=== PATIENT | male | born 1935 | race Caucasian/White ===

== ENCOUNTER 2018-05-23 13:29 | Inpatient (IN) | payer OTHER, BC ==
--- NOTE | 2018-05-23 13:54 | PDOC ---
Rapid Medical Evaluation Time Seen by Provider: 05/23/18 13:49 Medical Evaluation: Allergies Allergy/AdvReac Type Severity Reaction Status Date / Time No Known Allergies Allergy Verified 06/23/16 19:33 05/23/18 13:49 I have performed a brief in-person evaluation of this patient. The patient presents with a chief complaint of: increased confusion over months with Brain CA Pertinent physical exam findings: CN2-12 grossly intact. PERRLA, EOMI. Gait steady. I have ordered the following: labs, urine, head CT and CXR performed today The patient will proceed to the ED for further evaluation. Discharge Disposition - Diagnosis Confusion - Referrals - Patient Instructions - Post Discharge Activity
[2018-05-23 14:45] LABS: EOS % 3.6 % (0-4.5); HEMATOCRIT 37.2 % (35.4-49); HEMOGLOBIN 12.7 GM/dL (11.7-16.9); LYMPH % 28.6 % (8-40); MCHC 34.2 g/dl (32.0-35.9); MEAN CELL VOLUME 90.5 fl (80-96); MEAN PLT VOLUME 7.3 fl (7.5-11.1); MONO % 7.2 % (3.8-10.2); NEUT % 59.6 % (42.8-82.8); PLATELET COUNT 177 K/MM3 (134-434); RDW 14.6 % (11.9-15.9); WHITE BLOOD COUNT 5.9 K/mm3 (4.0-10.0)
--- NOTE | 2018-05-23 14:47 | PDOC ---
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 Patient retired from work 2 months ago and since has had difficulty driving and per daughter episodes where he does not know where he is and appears confused. The patient denies any changes in vision, headaches, ringing in the ears, nausea, vomiting, vertigo or fevers. He denies any chest pain, shortness of breath, abdominal pain, diarrhea , constipation and denies any other complaints at bedside. PMHX: as in HPI Meds: see below Allergies: NKDA Tob: none Etoh: none Rec drugs: none PCP: Marcelle <Tiffanie Sims - Last Filed: 05/23/18 15:20> <Morelia Hutchinson - Last Filed: 05/23/18 16:12> - General History Source: Patient, Family Exam Limitations: No Limitations <Tiffany Horn - Last Filed: 05/29/18 05:53> - General Chief Complaint: Altered Mental Status Stated Complaint: SENT BY PCP Time Seen by Provider: 05/23/18 13:49 Past History - Past Medical History HTN: Yes - Suicide/Smoking/Psychosocial Hx Smoking History: Never smoked Have you smoked in the past 12 months: No Information on smoking cessation initiated: No Hx Alcohol Use: No Drug/Substance Use Hx: No Substance Use Type: None <Tiffanie Sims - Last Filed: 05/23/18 15:20> <Morelia Hutchinson - Last Filed: 05/23/18 16:12> <Tiffany Horn - Last Filed: 05/29/18 05:53> - Past Medical History Allergies/Adverse Reactions: Allergies Allergy/AdvReac Type Severity Reaction Status Date / Time No Known Allergies Allergy Verified 06/23/16 19:33 Home Medications: Ambulatory Orders Simvastatin 20 mg PO HS 06/23/16 Tamsulosin HCl [Flomax] 0.4 mg PO DAILY 05/23/18 Olmesartan Medoxomil 40 mg PO DAILY #30 tablet 05/25/18 levETIRAcetam [Keppra -] 500 mg PO BID #60 tablet 05/25/18 Bisacodyl [Laxative] 5 mg PO ASDIR 05/26/18 Review of Systems - Review of Systems Able to Perform ROS?: Yes Is the patient limited [place] proficient: No Constitutional: No: Chills, Diaphoresis, Fever HEENTM: No: Eye Pain, Blurred Vision, Tearing, Double Vision, Tinnitus Respiratory: No: Cough, Orthopnea, Shortness of Breath Cardiac (ROS): No: Chest Pain, Palpitations, Syncope, Chest Tightness ABD/GI: No: Constipated, Diarrhea, Nausea, Vomiting : No: Burning, Dysuria, Hematuria, Incontinence Neurological: No: Headache, Numbness, Paresthesia, Tingling <Tiffanie Sims - Last Filed: 05/23/18 15:20> *Physical Exam - Vital Signs Last Vital Signs Temp Pulse Resp BP Pulse Ox 98.2 F 84 16 165/87 98 05/23/18 13:50 05/23/18 13:50 05/23/18 13:50 05/23/18 13:50 05/23/18 13:50 - Physical Exam Comments: 05/23/18 14:48 GENERAL: Awake, alert, and fully oriented, in no acute distress HEAD: No signs of trauma, normocephalic, + lesions on posterior parietal area, with dark crusting, largest measuring 1cm in diameter EYES: PERRLA, EOMI, sclera anicteric, conjunctiva clear ENT: oropharynx clear without exudates. Moist mucosa NECK: Normal ROM, supple, no lymphadenopathy LUNGS: No distress, speaks full sentences, clear to auscultation bilaterally HEART: Regular rate and rhythm, normal S1 and S2, no murmurs, rubs or gallops, peripheral pulses normal and equal bilaterally. ABDOMEN: Soft, nontender, normoactive bowel sounds. No guarding, no rebound. No masses EXTREMITIES : Normal inspection, Normal range of motion, no edema. No clubbing or cyanosis. NEUROLOGICAL: Cranial nerves II through XII grossly intact. Normal speech, no focal sensorimotor deficits SKIN: Warm, Dry, normal turgor, no rashes or lesions noted <Tiffanie Sims - Last Filed: 05/23/18 15:20> - Vital Signs Last Vital Signs Temp Pulse Resp BP Pulse Ox 98.2 F 84 16 165/87 98 05/23/18 13:50 05/23/18 13:50 05/23/18 13:50 05/23/18 13:50 05/23/18 13:50 <Morelia Hutchinson - Last Filed: 05/23/18 16:12> - Vital Signs Last Vital Signs Temp Pulse Resp BP Pulse Ox 98.2 F 84 16 165/87 98 05/23/18 13:50 05/23/18 13:50 05/23/18 13:50 05/23/18 13:50 05/23/18 13:50 <Tiffany Horn Rick - Last Filed: 05/29/18 05:53> ED Treatment Course - LABORATORY CBC & Chemistry Diagram: 05/23/18 14:33 05/23/18 14:33 <Tiffanie Sims - Last Filed: 05/23/18 15:20> - LABORATORY CBC & Chemistry Diagram: 05/23/18 14:33 05/23/18 14:33 - ADDITIONAL ORDERS Additional order review: Laboratory Results 05/23/18 05/23/18 15:21 14:33 Sodium 141 Potassium 4.5 Chloride 107 Carbon Dioxide 25 Anion Gap 8 BUN 16 Creatinine 1.1 Creat Clearance w eGFR > 60 Random Glucose 84 Calcium 8.7 Total Bilirubin 0.5 AST 22 ALT 20 Alkaline Phosphatase 75 Creatine Kinase 95 Troponin I 0.02 Total Protein 7.5 Albumin 3.9 Urine Color Ltyellow Urine Appearance Clear Urine pH 5.0 Ur Specific [place] 1.012 Urine Protein Negative Urine Glucose (UA) Negative Urine Ketones Negative Urine Blood Negative Urine Nitrite Negative Urine Bilirubin Negative Urine Urobilinogen Negative Ur Leukocyte Esterase Negative 05/23/18 14:33 RBC 4.10 MCV 90.5 MCHC 34.2 RDW 14.6 MPV 7.3 L Neutrophils % 59.6 Lymphocytes % 28.6 D Monocytes % 7.2 Eosinophils % 3.6 Basophils % 1.0 - Medications Given in the ED: ED Medications Discontinued Medications Generic Name Dose Route Start Last Admin Trade Name Freq PRN Reason Stop Dose Admin Alprazolam 0.25 mg 05/23/18 15:35 05/23/18 15:47 Xanax - PO 05/23/18 15:36 0.25 mg ONCE ONE Administration Dexamethasone Sodium Phosphate 10 mg 05/23/18 15:42 05/23/18 16:03 Decadron Injection - IVPUSH 05/23/18 15:43 10 mg ONCE ONE Administration Levetiracetam 500 mg 05/23/18 15:11 05/23/18 15:38 Keppra Injection - IVPB 05/23/18 15:12 500 mg ONCE ONE Administration - Additional Consults Time Called: 16:12 (Called service, left message. Overhead paged as well. ) <Morelia Hutchinson - Last Filed: 05/23/18 16:12> - LABORATORY CBC & Chemistry Diagram: 05/25/18 08:10 05/25/18 05:30 - ADDITIONAL ORDERS Additional order review: Laboratory Results 05/23/18 05/23/18 15:21 14:33 Sodium 141 Potassium 4.5 Chloride 107 Carbon Dioxide 25 Anion Gap 8 BUN 16 Creatinine 1.1 Creat Clearance w eGFR > 60 Random Glucose 84 Calcium 8.7 Total Bilirubin 0.5 AST 22 ALT 20 Alkaline Phosphatase 75 Creatine Kinase 95 Troponin I 0.02 Total Protein 7.5 Albumin 3.9 Urine Color Ltyellow Urine Appearance Clear Urine pH 5.0 Ur Specific [place] 1.012 Urine Protein Negative Urine Glucose (UA) Negative Urine Ketones Negative Urine Blood Negative Urine Nitrite Negative Urine Bilirubin Negative Urine Urobilinogen Negative Ur Leukocyte Esterase Negative 05/23/18 14:33 RBC 4.10 MCV 90.5 MCHC 34.2 RDW 14.6 MPV 7.3 L Neutrophils % 59.6 Lymphocytes % 28.6 D Monocytes % 7.2 Eosinophils % 3.6 Basophils % 1.0 - RADIOLOGY Radiology Studies Ordered: Category Date Time Status BRAIN MRI W&W/O CONTRAST [MRI] Stat MRI 05/23/18 15:59 Ordered - Medications Given in the ED: ED Medications Discontinued Medications Generic Name Dose Route Start Last Admin Trade Name Freq PRN Reason Stop Dose Admin Alprazolam 0.25 mg 05/23/18 15:35 05/23/18 15:47 Xanax - PO 05/23/18 15:36 0.25 mg ONCE ONE Administration Dexamethasone Sodium Phosphate 10 mg 05/23/18 15:42 05/23/18 16:03 Decadron Injection - IVPUSH 05/23/18 15:43 10 mg ONCE ONE Administration Levetiracetam 500 mg 05/23/18 15:11 05/23/18 15:38 Keppra Injection - IVPB 05/23/18 15:12 500 mg ONCE ONE Administration <Tiffany Horn - Last Filed: 05/29/18 05:53> Medical Decision Making - Medical Decision Making 05/23/18 14:46 83 year old with past medical history of HLD and basal cell carcinoma who presents with 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 Patient retired from work 2 months ago and since has had difficulty driving and per daughter episodes where he does not know where he is and appears confused. The patient denies any changes in vision, headaches, ringing in the ears, nausea, vomiting, vertigo or fevers. He denies any chest pain, shortness of breath, abdominal pain, diarrhea , constipation and denies any other complaints at bedside. DDX including but not limited to: meta W/U: - cbc, cmp, PT, PT/INR - ekg, cxr TX: - Scores: ED Course: Patient stable and pleasant at bedside. Per daughter patient has lesions in the chest and the brain as reported by PCP earlier today. The patient is in no pain. Studies done prior to arrival to ED Head CT: R temporal lobe mass w/ R cerebral vasogenic edema CXR: No acute pathology found. Patient with stable vitals and without neurological findings less concern for increased ICP. Patient without findings of irregular decreased respirations or bradycardia or systolic HTN. 05/23/18 15:13 Keppra 500mg ordered for seizure ppx. Dexamethasone 10mg given Chest, Abd, Pelvis CT 05/23/18 15:44 <Tiffanie Sims - Last Filed: 05/23/18 15:20> *DC/Admit/Observation/Transfer <Tiffanie Sims - Last Filed: 05/23/18 15:20> <Morelia Hutchinson - Last Filed: 05/23/18 16:12> - Discharge Dispostion Decision to Admit order: Yes Decision to Admit order Date/Time: Decision to Admit Order Category Date Time Status Decision to Admit to Hospital Routine Admission 05/23/18 16:04 Ordered <Tiffany Horn - Last Filed: 05/29/18 05:53> Diagnosis at time of Disposition: Confusion, Intracranial mass, Vasogenic cerebral edema - Discharge Dispostion Condition at time of disposition: Improved
--- NOTE | 2018-05-23 15:04 | PDOC ---
Attending Attestation - Medical Decision Making 05/23/18 15:[address] Ibanez 3:37, waiting for a call back. 05/23/18 15:[address] Ibanez. 05/23/18 15:[address] Vila. 05/23/18 15:[address] Vila. 05/23/18 15:[address] Ochoa 05/23/18 15:[address] Ochoa 05/23/18 15:58 Documentation prepared by Blessing Silverio, acting as auditor medical claims for Tiffany Horn MD. 05/23/18 16:03 ICU paged. 05/23/18 16:03 Case discussed with ICU resident Dr. Covington. <Blessing Silverio - Last Filed: 05/23/18 16:03> - Resident Resident Name: Tiffanie Sims - ED Attending Attestation I have performed the following: I have examined & evaluated the patient, The case was reviewed & discussed with the resident, I agree w/resident's findings & plan - HPI HPI: 05/23/18 15:02 Mr. Gianfranco Hernandez is a 84 year old male with past medical history significant for BCC (scalp), HTN, HLD, and newly dx hemorrhagic brain mass (05/23/2018) presents to the emergency department with AMS. Per PCP, patients been having increased confusion and disorientation for the past 2 months. Earlier today, patient had a CT of the head, which showed the mass. Allergies: NKA Social history: No past or present use of tobacco, alcohol or recreational drug use. Surgical history: Scalp lesion removed. PCP: Jayme Ibanez MD 05/23/18 16:06 - Physicial Exam PE: 05/23/18 16:05 Alert, oriented to person time and place. well appearing. CN II-XII grossly intact. Strength prox and distally 5/5 throughout. Sensation grossly intact to light touch. LI x4. No cerebellar signs, no dysmetria, bilateral finger to nose and heel to baez equal and symmetric. Speech clear. gait stable. no ataxia EOMI, PERRL, neck supple. RRR, CTAB, Abdomen soft, NTND. WWP, no edema. 05/23/18 16:06 05/23/18 16:07 - Medical Decision Making 83 year old with past medical history of HLD and basal cell carcinoma with new intracranial mass. AMS and delirium x 2 months, CT head today with right sided hemorrhagic mass vitals wnl, labs and lytes normal. HD stable, HOB at 30 degrees. no focal neuro deficits here. CT head with right temporal lobe hemorrhagic mass and vasogenic edema, shift and compression onto lateral and ventricles. - given IVF, keppra for sz ppx, Dexamethasone 10mg IV. - CT c/a/p ordered for malignancy workup/mets. spoke with Dr. Vila, will see as neuro cs spoke with Dr. Ochoa per request of PMD Dr. Ibanez - who saw images with PMD earlier today, will operate preemptively for tomorrow. NPO after midnight. agrees with malignancy workup, CT chest abdomen and pelvis ordered. MRI brain ordered as well. -ICU consult and admission to hospitalist per pmd, for close neuro checks and operative planning, c/w medical management and malignancy workup. pt not aware per request of daughter at bedside, impression and plan discussed with her, agree with care. 05/23/18 16:07 05/23/18 17:22 <Tiffany Horn - Last Filed: 05/23/18 17:22>
[2018-05-23] MEDS ORDERED: levETIRAcetam 500 MG/5 ML INJECTION VIAL IVPB ONE ×2 (15:11→15:23)
[2018-05-23] MEDS ORDERED: ALPRAZolam 0.25 MG TABLET PO ONE (15:35)
[2018-05-23 15:40] LABS: ALBUMIN 3.9 g/dl (3.4-5.0); ALK PHOS 75 U/L (45-117); ANION GAP 8 MMOL/L (8-16); BILIRUBIN,TOTAL 0.5 mg/dL (0.2-1); BLOOD UREA NITROGEN 16 mg/dL (7-18); CALCIUM 8.7 mg/dL (8.5-10.1); CHLORIDE 107 mmol/L (98-107); CO2 25 mmol/L (21-32); CREATININE 1.1 mg/dL (0.55-1.3); GLUCOSE,RANDOM 84 mg/dL (74-106); POTASSIUM 4.5 mmol/L (3.5-5.1); SGOT/AST 22 U/L (15-37); SGPT/ALT 20 U/L (13-61); SODIUM 141 mmol/L (136-145); TOT PROT 7.5 g/dl (6.4-8.2)
[2018-05-23] MEDS ORDERED: ALPRAZolam 0.25 MG TABLET ONE (15:41)
[2018-05-23] MEDS ORDERED: DEXAMETHASONE SOD PHOSPHATE 10 MG/1 ML VIAL IVPUSH ONE (15:42)
[2018-05-23 15:48] LABS: URINE APPEARANCE CLEAR; URINE BILIRUBIN NEGATIVE (<2.0 mg/dL); URINE COLOR LTYELLOW; URINE GLUCOSE (UA) NEGATIVE (NEGATIVE); URINE KETONE NEGATIVE (NEGATIVE); URINE LEUK ESTERASE NEGATIVE (NEGATIVE); URINE NITRITE NEGATIVE (NEGATIVE); URINE PROTEIN NEGATIVE (NEGATIVE); URINE UROBILINOGEN NEGATIVE mg/dL (0.2-1.0)
[2018-05-23 15:57] LABS: INR 1.01 (0.83-1.09); PROTHROMBIN TIME (PATIENT) 11.9 SEC (9.7-13.0)
[2018-05-23] MEDS ORDERED: DEXAMETHASONE SOD PHOSPHATE 10 MG/1 ML VIAL ONE (15:57)
--- NOTE | 2018-05-23 16:26 | HP ---
CHIEF COMPLAINT:AMS PCP:Dr. Ibanez HISTORY OF PRESENT ILLNESS: 83 yo M with PMHx of HLD and BCC who was sent by PCP for newly found hemorrhagic brain mass. As per daughter he has had a steady decline in cognition over the past 3 mo. Every since he retired 3 mo ago he has become more confused and anxious. Daughters have noticed that he has become increasingly forgetful and often asking the same question multiple times. His daughters finally called PCP and was told to come in to office. When he arrived at office CT head was done and identified a mass with possible bleed and edema. Patient was subsequently transferred to ED. In ED patient was evaluated by neurosurgery and MRI is pending. Patients denies CP, CISNEROS, SOB, palpitations, nausea, vomiting or recent illness. ER course was notable for: (1)EKG- NSR no st abn. (2)HEAD CT shows ; R temporal lobe mass w/ R cerebral vasogenic edema (3)CXR: No acute pathology found. Recent Travel: denies PAST MEDICAL HISTORY:Basal cell carcinoma, HLD. PAST SURGICAL HISTORY: basal cell excision, eye surgery? Social History: Smoking: remote over 40 yrs ago; 1 cig at night for 3 yrs. 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 Living: lives at home with his daughter. Family History: Father ( of TB) and Mother(dementia) Allergies No Known Allergies Allergy (Verified 06/23/16 19:33) HOME MEDICATIONS: Home Medications Medication Instructions Recorded Olmesartan Medoxomil [Benicar -] 20 mg PO DAILY 06/23/16 Simvastatin 20 mg PO ASDIR 06/23/16 REVIEW OF SYSTEMS CONSTITUTIONAL: Absent: fever, chills, diaphoresis, generalized weakness, malaise, loss of appetite, weight change HEENT: Absent: rhinorrhea, nasal congestion, throat pain, throat swelling, difficulty swallowing, mouth swelling, ear pain, eye pain, visual changes CARDIOVASCULAR: Absent: chest pain, syncope, palpitations, irregular heart rate, lightheadedness , peripheral edema RESPIRATORY: Absent: cough, shortness of breath, dyspnea with exertion, orthopnea, wheezing, stridor, hemoptysis GASTROINTESTINAL: Absent: abdominal pain, abdominal distension, nausea, vomiting, diarrhea, constipation, melena, hematochezia GENITOURINARY: Absent: dysuria, frequency, urgency, hesitancy, hematuria, flank pain, genital pain MUSCULOSKELETAL: Absent: myalgia, arthralgia, joint swelling, back pain, neck pain SKIN: Absent: rash, itching, pallor HEMATOLOGIC/IMMUNOLOGIC: Absent: easy bleeding, easy bruising, lymphadenopathy, frequent infections ENDOCRINE: Absent: unexplained weight gain, unexplained weight loss, heat intolerance, cold intolerance NEUROLOGIC: mental status changes Absent: headache, focal weakness or paresthesias, dizziness, unsteady gait, seizure, , bladder or bowel incontinence PSYCHIATRIC: Absent: anxiety, depression, suicidal or homicidal ideation, hallucinations. PHYSICAL EXAMINATION Vital Signs - 24 hr 05/23/18 13:50 Temperature 98.2 F Pulse Rate 84 Respiratory 16 Rate Blood Pressure 165/87 O2 Sat by Pulse 98 Oximetry (%) GENERAL: AAOx2(person/place) , NAD HEAD:NC. scar over left eye and occipital scar from excision biopsy. EYES: PERRLA, EOMI, sclera anicteric, conjunctiva clear. No lid lag. EARS, NOSE, THROAT: moist mucous membranes. NECK:Supple without lymphadenopathy, JVD, or masses. LUNGS: CTAB No wheezes, and no crackles. No accessory muscle use. HEART: RRR, normal S1 and S2 ABDOMEN: Soft, NTND,NABS no guarding, no rebound, no masses. No hepatomegaly or splenomegaly. MUSCULOSKELETAL: Normal range of motion at all joints. No bony deformities or tenderness. No CVA tenderness. UPPER EXTREMITIES: 2+ pulses, warm, well-perfused. No cyanosis. No clubbing. No peripheral edema. LOWER EXTREMITIES: 2+ pulses, warm, well-perfused. No calf tenderness. No peripheral edema. NEUROLOGICAL: Cranial nerves II-XII intact. Normal speech. 5/5 muscle strength upper and lower ext. PSYCHIATRIC: Cooperative. Good eye contact. Appropriate mood and affect. SKIN: Warm, dry, normal turgor, no rashes or lesions noted, normal capillary refill. Laboratory Results - last 24 hr 05/23/18 05/23/18 05/23/18 14:33 14:33 14:33 WBC 5.9 RBC 4.10 Hgb 12.7 Hct 37.2 D MCV 90.5 MCH 31.0 MCHC 34.2 RDW 14.6 Plt Count 177 MPV 7.3 L Absolute Neuts (auto) 3.5 Neutrophils % 59.6 Lymphocytes % 28.6 D Monocytes % 7.2 Eosinophils % 3.6 Basophils % 1.0 Nucleated RBC % 0 PT with INR 11.90 INR 1.01 Sodium 141 Potassium 4.5 Chloride 107 Carbon Dioxide 25 Anion Gap 8 BUN 16 Creatinine 1.1 Creat Clearance w eGFR > 60 Random Glucose 84 Calcium 8.7 Total Bilirubin 0.5 AST 22 ALT 20 Alkaline Phosphatase 75 Creatine Kinase 95 Troponin I 0.02 Total Protein 7.5 Albumin 3.9 Urine Color Urine Appearance Urine pH Ur Specific [place] Urine Protein Urine Glucose (UA) Urine Ketones Urine Blood Urine Nitrite Urine Bilirubin Urine Urobilinogen Ur Leukocyte Esterase 05/23/18 15:21 WBC RBC Hgb Hct MCV MCH MCHC RDW Plt Count MPV Absolute Neuts (auto) Neutrophils % Lymphocytes % Monocytes % Eosinophils % Basophils % Nucleated RBC % PT with INR INR Sodium Potassium Chloride Carbon Dioxide Anion Gap BUN Creatinine Creat Clearance w eGFR Random Glucose Calcium Total Bilirubin AST ALT Alkaline Phosphatase Creatine Kinase Troponin I Total Protein Albumin Urine Color Ltyellow Urine Appearance Clear Urine pH 5.0 Ur Specific [place] 1.012 Urine Protein Negative Urine Glucose (UA) Negative Urine Ketones Negative Urine Blood Negative Urine Nitrite Negative Urine Bilirubin Negative Urine Urobilinogen Negative Ur Leukocyte Esterase Negative IMAGING: * CT/HEAD CT WITHOUT CONTRAST CT scan of the brain c-. Altered mental status. Findings. Serial axial images of the brain were obtained from foramen magnum to the cranial vertex without intravenous contrast. The study was supplemented with computer-generated coronal and sagittal reconstruction images. The head was tilted during the acquisition of images. Heterogeneous in attenuation, necrotic masses or bilobed single lesion with irregular borders is noted in the right temporal lobe with significant vasogenic edema involving the right temporal, parietal lobe, posterior limb of the right internal capsule, right nani-insular white matter tracts The right ambient cistern is partially effaced. The right occipital horn lateral ventricle is effaced. The size of the mass approximately 3.6 cm x 4.4 cm x 4.8 cm. There is mass effect on the left lateral ventricle, third ventricle with midline shift of the septum pellucidum and in the third ventricle to the left side. No evidence of herniation. No evidence of subarachnoid hemorrhage. No evidence of acute subdural, or epidural hematoma. No evidence of hydrocephalus. Examination of the bone windows show no fracture. The visualized paranasal sinuses and mastoid air cells are clear. Symmetrical ocular globes. Unremarkable retro-orbital soft tissues. Impression. Right temporal lobe masses or bilobed heterogeneous in attenuation necrotic mass with significant right cerebral vasogenic edema. The size of the mass approximately 3.6 cm x 4.4 cm x 4.8 cm. There is mass effect on the right lateral ventricle, third ventricle with midline shift of the septum pellucidum/ and the third ventricle to the left side. The findings were discussed with the referring physician at 1:00 PM. Reported By: Harley Acevedo MD 05/23/18 1305 * CT/ABDOMEN PELVIS CT WITH CONTR [id number] CT/CHEST CT WITH CONTRAST Chest CT with contrast Abdomen and pelvis CT with contrast Clinical information: evaluate for mass Multiplanar imaging with chest, abdomen and pelvis was performed on the intravenous administration of nonionic contrast. As requested enteric contrast was not administered. No pulmonary mass lesion, nodule, infiltrate or pleural effusion is identified. Minimal bibasilar discoid atelectasis/scarring is noted. There is no discrete intrathoracic or axillary lymphadenopathy. No obvious endobronchial lesion is seen. There is probable mild left atrial dilatation. No pericardial effusion is seen. There is no aortic aneurysm. No prior chest CT studies are available at this facility for direct comparison. As on a previous abdomen/pelvic CT study of 11/30/2009 there is stable minimal to mild splenomegaly with a 13.3 cm in length. Possible diffuse fatty infiltration is seen as on the prior study. No focal hepatic mass lesion is identified. The pancreas, gallbladder, adrenal glands and kidneys demonstrate no discrete abnormality. No definite lymphadenopathy is noted. Colonic diverticulosis is seen without evidence of acute diverticulitis. No gross enteric mass lesion is seen. The osseous structures of the chest, abdomen and pelvis demonstrate no gross CT evidence of acute pathology or neoplastic disease. Impression: There is no CT evidence of a discrete mass lesion within the chest, abdomen or pelvis. Stable minimal to mild splenomegaly is seen in comparison to a prior CT study of 11/30/2009. 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 Problem List - Problem (1) Intracranial mass Assessment/Plan: Bleeding mass seen on CT * Elevation of the head of the bed to 30 degrees * Mild sedation, as needed for comfort * Use of normal saline initially for maintenance and replacement fluids; hypotonic fluids are contraindicated * Target SBP 140-160 * Neuro checks * Keppra for siezure prophylaxis * SCD's for DVT prophylaxis. * MRI pending * Neurosurgery on board. (2) Vasogenic cerebral edema Assessment/Plan: Repeat imaging pending. * Neuology and Neurosurgery consulted. * Decadron given for edema. (3) Confusion Assessment/Plan: Most likely result of Acute ICH. (4) HLD (hyperlipidemia) Assessment/Plan: Will continue statin. Visit type - Emergency Visit Emergency Visit: Yes ED Registration Date: 05/23/18 Care time: The patient presented to the Emergency Department on the above date and was hospitalized for further evaluation of their emergent condition. - New Patient This patient is new to me today: Yes Date on this admission: 05/25/18 - Critical Care Critical Care patient: Yes Total Critical Care Time (in minutes): 48 Critical Care Statement: The care of this patient involved high complexity decision making to prevent further life threatening deterioration of the patient 's condition and/or to evaluate & treat vital organ system(s) failure or risk of failure.
--- NOTE | 2018-05-23 16:44 | CONSULT ---
Consultation: REQUESTING PROVIDER: CONSULT REQUEST: We have been asked to medically evaluate this patient for ( critical care). HISTORY OF PRESENT ILLNESS: 83 year old with past medical history of HLD, htn and basal cell carcinoma who presents with newly found necrotic brain mass found by PCP after 2 months of reported episodes of confusion and disorientation. Patient retired from work 2 months ago and since has had difficulty driving and per daughter episodes where he does not know where he is and appears confused. The patient denies any changes in vision, headaches, ringing in the ears, nausea, vomiting, vertigo, seizures, numbness or weakness any part of body, walks normal. He denies any chest pain, shortness of breath, abdominal pain, diarrhea, constipation and denies any other complaints at bedside. Denies fever and chills PMHX: as in HPI Meds: tamsulosin hcl 0.4, simvastatin, biscacodyl, olmesartan Allergies: NKDA Social: no smoking, no alcohol Rec drugs: none REVIEW OF SYSTEMS: CONSTITUTIONAL: Absent: fever, chills, diaphoresis, generalized weakness, malaise, loss of appetite, weight change HEENT: Absent: rhinorrhea, nasal congestion, throat pain, throat swelling, difficulty swallowing, mouth swelling, ear pain, eye pain, visual changes CARDIOVASCULAR: Absent: chest pain, syncope, palpitations, irregular heart rate, lightheadedness , peripheral edema RESPIRATORY: Absent: cough, shortness of breath, dyspnea with exertion, orthopnea, wheezing, stridor, hemoptysis GASTROINTESTINAL: Absent: abdominal pain, abdominal distension, nausea, vomiting, diarrhea, constipation, melena, hematochezia GENITOURINARY: Absent: dysuria, frequency, urgency, hesitancy, hematuria, flank pain, genital pain MUSCULOSKELETAL: Absent: myalgia, arthralgia, joint swelling, back pain, neck pain SKIN: Absent: rash, itching, pallor HEMATOLOGIC/IMMUNOLOGIC: Absent: easy bleeding, easy bruising, ENDOCRINE: Absent: unexplained weight gain, unexplained weight loss, NEUROLOGIC: Absent: headache, focal weakness or paresthesias, dizziness, unsteady gait, seizure, mental status changes, bladder or bowel incontinence PSYCHIATRIC: Absent: anxiety, depression, PHYSICAL EXAMINATION Vital Signs - 24 hr 05/23/18 13:50 Temperature 98.2 F Pulse Rate 84 Respiratory 16 Rate Blood Pressure 165/87 O2 Sat by Pulse 98 Oximetry (%) GENERAL: Awake, alert, and fully oriented, in no acute distress. HEAD: Normal with no signs of trauma. EYES: Pupils equal, round and reactive to light, extraocular movements intact, sclera anicteric, conjunctiva clear. No lid lag. EARS, NOSE, THROAT: Ears normal, nares patent, oropharynx clear without exudates. Moist mucous membranes. NECK: Normal range of motion, supple without lymphadenopathy, JVD, or masses. LUNGS: Breath sounds equal, clear to auscultation bilaterally. No wheezes, and no crackles. No accessory muscle use. HEART: Regular rate and rhythm, normal S1 and S2 without murmur, rub or gallop. ABDOMEN: Soft, nontender, not distended, normoactive bowel sounds, no guarding, no rebound, no masses. MUSCULOSKELETAL: Normal range of motion at all joints. No CVA tenderness. UPPER EXTREMITIES: 2+ pulses, warm, well-perfused. No cyanosis. LOWER EXTREMITIES: 2+ pulses, warm, well-perfused. NEUROLOGICAL: Cranial nerves II-XII intact. Normal speech. Normal gait. power in b/l upper and lower limb 5/5, senastion to touch intact b/l upper and lower limb. PSYCHIATRIC: Cooperative. Good eye contact. Appropriate mood and affect. SKIN: Warm, dry, Laboratory Results - last 24 hr 05/23/18 05/23/18 05/23/18 14:33 14:33 14:33 WBC 5.9 RBC 4.10 Hgb 12.7 Hct 37.2 D MCV 90.5 MCH 31.0 MCHC 34.2 RDW 14.6 Plt Count 177 MPV 7.3 L Absolute Neuts (auto) 3.5 Neutrophils % 59.6 Lymphocytes % 28.6 D Monocytes % 7.2 Eosinophils % 3.6 Basophils % 1.0 Nucleated RBC % 0 PT with INR 11.90 INR 1.01 Sodium 141 Potassium 4.5 Chloride 107 Carbon Dioxide 25 Anion Gap 8 BUN 16 Creatinine 1.1 Creat Clearance w eGFR > 60 Random Glucose 84 Calcium 8.7 Total Bilirubin 0.5 AST 22 ALT 20 Alkaline Phosphatase 75 Creatine Kinase 95 Troponin I 0.02 Total Protein 7.5 Albumin 3.9 Urine Color Urine Appearance Urine pH Ur Specific [place] Urine Protein Urine Glucose (UA) Urine Ketones Urine Blood Urine Nitrite Urine Bilirubin Urine Urobilinogen Ur Leukocyte Esterase 05/23/18 15:21 WBC RBC Hgb Hct MCV MCH MCHC RDW Plt Count MPV Absolute Neuts (auto) Neutrophils % Lymphocytes % Monocytes % Eosinophils % Basophils % Nucleated RBC % PT with INR INR Sodium Potassium Chloride Carbon Dioxide Anion Gap BUN Creatinine Creat Clearance w eGFR Random Glucose Calcium Total Bilirubin AST ALT Alkaline Phosphatase Creatine Kinase Troponin I Total Protein Albumin Urine Color Ltyellow Urine Appearance Clear Urine pH 5.0 Ur Specific [place] 1.012 Urine Protein Negative Urine Glucose (UA) Negative Urine Ketones Negative Urine Blood Negative Urine Nitrite Negative Urine Bilirubin Negative Urine Urobilinogen Negative Ur Leukocyte Esterase Negative Active Medications Generic Name Dose Route Start Last Admin Trade Name Freq PRN Reason Stop Dose Admin Chlorhexidine Gluconate 1 applic 05/23/18 22:00 Hibiclens For Decolonization - TP HS STORMY Mupirocin 1 applic 05/23/18 22:00 Bactroban Ointment (For Decolonization) - NS 05/28/18 21:59 BID STORMY ASSESSMENT/PLAN: 83 year old with past medical history of HLD, htn and basal cell carcinoma who presents with newly found necrotic brain mass found 1) Brain mass CT- R temporal lobe mass or bilobed heterogenous in attenuation necrotic mass with significant right cerebral vasogenic edema. 3.6x 4.4x4.8 cm got 10mg of dexamethasone in er got keppra 500mg in er for prophylaxis. Keep head end elevated. neurosurgery and neurology on case. MRI brain pending. CT chest, abdomen and pelvis pending type and screen. we will start him on dexaethasone 4mg q6h standing for edema Keppra 500mg BID for prophylaxis. Discussed with Dr. lainez. will plan surgery after MRI. frequent neuro exam. monitor vitals. cardiac monitoring. Avoid IV fluid. Keep SBP below 140 HTN olmesartan monitor HLD simvastatin 20mg Fluid: 0rally allowed. Avoid IV fluid . NPO after midnight if plan for surgery electrolytes: reviewed nutrition: low cholesterol/ salt diet. NPO after midnight DVT pro: scd GI pro: protonix Dispo: icu Dispo: We will continue to follow the patient. Thank you for this consultative opportunity. Visit type - Emergency Visit Emergency Visit: Yes ED Registration Date: 05/23/18 Care time: The patient presented to the Emergency Department on the above date and was hospitalized for further evaluation of their emergent condition. - New Patient This patient is new to me today: Yes Date on this admission: 05/24/18 - Critical Care Critical Care patient: Yes Total Critical Care Time (in minutes): 45 Critical Care Statement: The care of this patient involved high complexity decision making to prevent further life threatening deterioration of the patient 's condition and/or to evaluate & treat vital organ system(s) failure or risk of failure.
--- NOTE | 2018-05-23 18:07 | PN ---
Teaching Attending Note Name of Resident: Van Saleem ATTENDING PHYSICIAN STATEMENT I saw and evaluated the patient. I reviewed the resident's note and discussed the case with the resident. I agree with the resident's findings and plan as documented with exceptions below. SUBJECTIVE: 83 yom with PMHx of HTN, HLD, basal cell carcinoma over chest/scalp area s/p excision, comes with 2 months of intermittent disorientation and confusion. Patient had CT head done with his PCP showing large temporal necrotic mass with vasogenic edema and advised to come to the ED. patient currently oriented to person, place, month, but not year, denies any headache, dizziness, visual or speech disturbances, shaking movements, LOC or new concerns. 12 point ROS done, neg except above. OBJECTIVE: Vital Signs Period Temp Pulse Resp BP Sys/[place] Pulse Ox Last 24 Hr 98.2 F 68-84 16-18 154-165/87-87 98-100 Intake & Output 05/20/18 05/21/18 05/22/18 05/23/18 23:59 23:59 23:59 23:59 Weight 211 lb GENERAL: Awake, alert, o HEAD: Normal with no signs of trauma. EYES: right pupil non reactive (eye surgery per family), left pupil reactive to light, EOMI EARS, NOSE, THROAT: Ears normal, nares patent, oropharynx clear without exudates. Moist mucous membranes. NECK: Soft, supple, No JVD LUNGS: Breath sounds equal, clear to auscultation bilaterally. No wheezes, and no crackles. No accessory muscle use. HEART: S1S2 regular rate rhythm ABDOMEN: Soft, nontender, not distended, normoactive bowel sounds, no guarding, no rebound, no masses. MUSCULOSKELETAL: Normal range of motion at all joints. No bony deformities or tenderness. No CVA tenderness. UPPER EXTREMITIES: 2+ pulses, warm, well-perfused. No cyanosis. No clubbing. No peripheral edema. LOWER EXTREMITIES: 2+ pulses, warm, well-perfused. No calf tenderness. No peripheral edema. NEUROLOGICAL: AAOx3, power 5/5, sensation intact to light touch, EOMI, facial symmetry, pupils as above, DTR symmetric, speech slow but normal PSYCHIATRIC: Cooperative. Good eye contact. Appropriate mood and affect. SKIN: Warm, dry, normal turgor, no rashes or lesions noted, normal capillary refill. Home Medications Medication Instructions Recorded Olmesartan Medoxomil [Benicar -] 20 mg PO DAILY 06/23/16 Simvastatin 20 mg PO HS 06/23/16 Tamsulosin HCl [Flomax] 0.4 mg PO DAILY 05/23/18 Active Medications Chlorhexidine Gluconate (Hibiclens For Decolonization -) 1 applic TP HS [facility] Dexamethasone Sodium Phosphate (Decadron Injection -) 4 mg IVPUSH Q6H [facility] Levetiracetam (Keppra Injection -) 500 mg IVPB BID [facility] Mupirocin (Bactroban Ointment (For Decolonization) -) 1 applic NS BID [facility] Stop: 05/28/18 21:59 Pantoprazole Sodium (Protonix -) 40 mg PO DAILY [facility] Laboratory Results - last 24 hr 05/23/18 05/23/18 05/23/18 14:33 14:33 14:33 WBC 5.9 RBC 4.10 Hgb 12.7 Hct 37.2 D MCV 90.5 MCH 31.0 MCHC 34.2 RDW 14.6 Plt Count 177 MPV 7.3 L Absolute Neuts (auto) 3.5 Neutrophils % 59.6 Lymphocytes % 28.6 D Monocytes % 7.2 Eosinophils % 3.6 Basophils % 1.0 Nucleated RBC % 0 PT with INR 11.90 INR 1.01 Sodium 141 Potassium 4.5 Chloride 107 Carbon Dioxide 25 Anion Gap 8 BUN 16 Creatinine 1.1 Creat Clearance w eGFR > 60 Random Glucose 84 Calcium 8.7 Total Bilirubin 0.5 AST 22 ALT 20 Alkaline Phosphatase 75 Creatine Kinase 95 Troponin I 0.02 Total Protein 7.5 Albumin 3.9 Urine Color Urine Appearance Urine pH Ur Specific [place] Urine Protein Urine Glucose (UA) Urine Ketones Urine Blood Urine Nitrite Urine Bilirubin Urine Urobilinogen Ur Leukocyte Esterase 05/23/18 15:21 WBC RBC Hgb Hct MCV MCH MCHC RDW Plt Count MPV Absolute Neuts (auto) Neutrophils % Lymphocytes % Monocytes % Eosinophils % Basophils % Nucleated RBC % PT with INR INR Sodium Potassium Chloride Carbon Dioxide Anion Gap BUN Creatinine Creat Clearance w eGFR Random Glucose Calcium Total Bilirubin AST ALT Alkaline Phosphatase Creatine Kinase Troponin I Total Protein Albumin Urine Color Ltyellow Urine Appearance Clear Urine pH 5.0 Ur Specific [place] 1.012 Urine Protein Negative Urine Glucose (UA) Negative Urine Ketones Negative Urine Blood Negative Urine Nitrite Negative Urine Bilirubin Negative Urine Urobilinogen Negative Ur Leukocyte Esterase Negative CT head from 05/23 results and images reviewed ASSESSMENT AND PLAN: 83 yom with PMHx of HTN, HLD, basal cell carcinoma s/p excision, admitted with new right temporal lobe necrotic mass with vasogenic edema -New right temporal necrotic mass with vasogenic edema -HTN -HLD -Basal Cell carcinoma s/p excision Plan: Neurosurgery consult, case discussed MRI brain IV decadron/IV keppra Neuro checks, seizure precautions CT chest/A/P to assess for primary/metastatic lesions. Oncology input accordingly. Will need Biopsy of the lesion if currently w/u unrevealing for lesions. BP control, SBP goal 140s Get baseline EKG. DVTPPX with SCDs Admit to ICU. Plan discussed with both daughters at bedside in detail, all questions answered. Care co-ordinated with ICU team and Dr. Sawyer. Total critical care time spent 45 min.
--- NOTE | 2018-05-23 21:28 | CONSULT ---
Consult - text type - Consultation Consultation Note: NEUROSURGERY CONSULTATION Patient is an 83-year-old male with a recent history of confusion. Evaluation with a CT scan revealed a 4 x 5 cm lesion in the right posterior temporal lobe with hemorrhage. MRI scan demonstrates this lesion with some blood product in the posterior temporal lobe on the right side. I discussed the differential diagnosis and potential treatment options with the patient and daughters prior to the MRI. Patient would likely benefit from microsurgical decompression with biopsy/resection of this lesion. I will discuss this potential treatment with them in the morning. Patient will be NPO after midnight for potential surgery tomorrow.
[2018-05-23] MEDS: PANTOPRAZOLE 40 MG TABLET (FP) PO SCH (22:43)
[2018-05-23] MEDS ORDERED: PANTOPRAZOLE 40 MG TABLET (FP) ONE (22:56)
[2018-05-23] MEDS ORDERED: DEXAMETHASONE SOD PHOSPHATE 4 MG/1 ML VIAL ONE (22:56)
[2018-05-23] MEDS: DEXAMETHASONE SOD PHOSPHATE 4 MG/1 ML VIAL IVPUSH SCH (23:00)
[2018-05-24] MEDS: DEXAMETHASONE SOD PHOSPHATE 4 MG/1 ML VIAL IVPUSH SCH ×3 (04:06→18:35)
[2018-05-24 04:37] VITALS: BMI 26.9
[2018-05-24 06:15] LABS: BASO % 0.1 % (0-2.0); EOS % 0.1 % (0-4.5); HEMATOCRIT 34.7 % (35.4-49); HEMOGLOBIN 11.9 GM/dL (11.7-16.9); LYMPH % 19.3 % (8-40); MCH 30.7 pg (25.7-33.7); MCHC 34.3 g/dl (32.0-35.9); MEAN CELL VOLUME 89.4 fl (80-96); MEAN PLT VOLUME 7.6 fl (7.5-11.1); MONO % 2.1 % (3.8-10.2); NEUT % 78.4 % (42.8-82.8); PLATELET COUNT 178 K/MM3 (134-434); RBC 3.88 M/mm3 (4.00-5.60); RDW 14.3 % (11.9-15.9); WHITE BLOOD COUNT 4.7 K/mm3 (4.0-10.0)
[2018-05-24 06:39] LABS: ALBUMIN 3.1 g/dl (3.4-5.0); ALK PHOS 62 U/L (45-117); ANION GAP 8 MMOL/L (8-16); BILIRUBIN,TOTAL 0.4 mg/dL (0.2-1); BLOOD UREA NITROGEN 16 mg/dL (7-18); CALCIUM 8.5 mg/dL (8.5-10.1); CHLORIDE 105 mmol/L (98-107); CO2 27 mmol/L (21-32); GLUCOSE,RANDOM 138 mg/dL (74-106); POTASSIUM 4.1 mmol/L (3.5-5.1); SGOT/AST 17 U/L (15-37); SGPT/ALT 16 U/L (13-61); SODIUM 140 mmol/L (136-145); TOT PROT 6.3 g/dl (6.4-8.2)
[2018-05-24] MEDS ORDERED: PNEUMOC 13-VAL CONJ-DIP CRM/PF 0.5 ML DISP.SYRIN IM ONE (10:00)
[2018-05-24] MEDS: MUPIROCIN 2% TOPICAL OINTMENT FOR DECOLONIZATION NS SCH ×2 (10:11→22:01)
[2018-05-24] MEDS: levETIRAcetam 500 MG/5 ML INJECTION VIAL IVPB SCH ×2 (10:12→22:00)
[2018-05-24] MEDS: PANTOPRAZOLE 40 MG TABLET (FP) PO SCH (10:12)
--- NOTE | 2018-05-24 10:15 | CONSULT ---
Consult - text type - Consultation Consultation Note: Neurology CHIEF COMPLAINT:AMS PCP:Dr. Ibanez HISTORY OF PRESENT ILLNESS: 83 yo M with PMHx of HLD and BCC who was sent by PCP for newly found hemorrhagic brain mass. As per notes, patient daughter reported steady decline in cognition over the past 3 months with increased confusion. Daughters have noticed that he has become increasingly forgetful and often asking the same question multiple times. His daughters finally called PCP and was told to come in to office. When he arrived at office CT head was done and identified a mass with possible bleed and edema. Patient was subsequently transferred to ED. MRI brain completed and reviewed, discussed with patient. 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 Patient admitted for ICU and getting critical care monitoring. NSGY noted reviewed, considering intervention. Discussed with PCP via phone when he called ICU. Patient on decadron. Will add keppra for seizure prophylaxis. Recent Travel: denies PAST MEDICAL HISTORY:Basal cell carcinoma, HLD. PAST SURGICAL HISTORY: basal cell excision, eye surgery? Social History: Smoking: remote over 40 yrs ago; 1 cig at night for 3 yrs. 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 Living: lives at home with his daughter. Family History: Father ( of TB) and Mother(dementia) Allergies No Known Allergies Allergy (Verified 06/23/16 19:33) HOME MEDICATIONS: Home Medications Medication Instructions Recorded Olmesartan Medoxomil [Benicar -] 20 mg PO DAILY 06/23/16 Simvastatin 20 mg PO ASDIR 06/23/16 REVIEW OF SYSTEMS CONSTITUTIONAL: Absent: fever, chills, diaphoresis, generalized weakness, malaise, loss of appetite, weight change HEENT: Absent: rhinorrhea, nasal congestion, throat pain, throat swelling, difficulty swallowing, mouth swelling, ear pain, eye pain, visual changes CARDIOVASCULAR: Absent: chest pain, syncope, palpitations, irregular heart rate, lightheadedness , peripheral edema RESPIRATORY: Absent: cough, shortness of breath, dyspnea with exertion, orthopnea, wheezing, stridor, hemoptysis GASTROINTESTINAL: Absent: abdominal pain, abdominal distension, nausea, vomiting, diarrhea, constipation, melena, hematochezia GENITOURINARY: Absent: dysuria, frequency, urgency, hesitancy, hematuria, flank pain, genital pain MUSCULOSKELETAL: Absent: myalgia, arthralgia, joint swelling, back pain, neck pain SKIN: Absent: rash, itching, pallor HEMATOLOGIC/IMMUNOLOGIC: Absent: easy bleeding, easy bruising, lymphadenopathy, frequent infections ENDOCRINE: Absent: unexplained weight gain, unexplained weight loss, heat intolerance, cold intolerance NEUROLOGIC: mental status changes Absent: headache, focal weakness or paresthesias, dizziness, unsteady gait, seizure, , bladder or bowel incontinence PSYCHIATRIC: Absent: anxiety, depression, suicidal or homicidal ideation, hallucinations. PHYSICAL EXAMINATION Vital Signs Temperature 98.3 F 05/24/18 06:00 Pulse Rate 71 05/24/18 08:00 Respiratory Rate 14 05/24/18 08:48 Blood Pressure 134/58 L 05/24/18 08:00 O2 Sat by Pulse Oximetry (%) 96 05/24/18 08:48 GENERAL: AAOx2(person/place) , NAD HEAD:NC. scar over left eye and occipital scar from excision biopsy. EYES: PERRLA, EOMI, sclera anicteric, conjunctiva clear. No lid lag. EARS, NOSE, THROAT: moist mucous membranes. NECK:Supple without lymphadenopathy, JVD, or masses. LUNGS: CTAB No wheezes, and no crackles. No accessory muscle use. HEART: RRR, normal S1 and S2 ABDOMEN: Soft, NTND,NABS no guarding, no rebound, no masses. No hepatomegaly or splenomegaly. MUSCULOSKELETAL: Normal range of motion at all joints. No bony deformities or tenderness. No CVA tenderness. UPPER EXTREMITIES: 2+ pulses, warm, well-perfused. No cyanosis. No clubbing. No peripheral edema. LOWER EXTREMITIES: 2+ pulses, warm, well-perfused. No calf tenderness. No peripheral edema. NEUROLOGICAL: Cranial nerves II-XII intact. Normal speech. 5/5 muscle strength upper and lower ext. PSYCHIATRIC: Cooperative. Good eye contact. Appropriate mood and affect. SKIN: Warm, dry, normal turgor, no rashes or lesions noted, normal capillary refill. Laboratory Results - last 24 hr 05/23/18 05/23/18 05/23/18 14:33 14:33 14:33 WBC 5.9 RBC 4.10 Hgb 12.7 Hct 37.2 D MCV 90.5 MCH 31.0 MCHC 34.2 RDW 14.6 Plt Count 177 MPV 7.3 L Absolute Neuts (auto) 3.5 Neutrophils % 59.6 Lymphocytes % 28.6 D Monocytes % 7.2 Eosinophils % 3.6 Basophils % 1.0 Nucleated RBC % 0 PT with INR 11.90 INR 1.01 Sodium 141 Potassium 4.5 Chloride 107 Carbon Dioxide 25 Anion Gap 8 BUN 16 Creatinine 1.1 Creat Clearance w eGFR > 60 Random Glucose 84 Calcium 8.7 Total Bilirubin 0.5 AST 22 ALT 20 Alkaline Phosphatase 75 Creatine Kinase 95 Troponin I 0.02 Total Protein 7.5 Albumin 3.9 Urine Color Urine Appearance Urine pH Ur Specific [place] Urine Protein Urine Glucose (UA) Urine Ketones Urine Blood Urine Nitrite Urine Bilirubin Urine Urobilinogen Ur Leukocyte Esterase 05/23/18 15:21 WBC RBC Hgb Hct MCV MCH MCHC RDW Plt Count MPV Absolute Neuts (auto) Neutrophils % Lymphocytes % Monocytes % Eosinophils % Basophils % Nucleated RBC % PT with INR INR Sodium Potassium Chloride Carbon Dioxide Anion Gap BUN Creatinine Creat Clearance w eGFR Random Glucose Calcium Total Bilirubin AST ALT Alkaline Phosphatase Creatine Kinase Troponin I Total Protein Albumin Urine Color Ltyellow Urine Appearance Clear Urine pH 5.0 Ur Specific [place] 1.012 Urine Protein Negative Urine Glucose (UA) Negative Urine Ketones Negative Urine Blood Negative Urine Nitrite Negative Urine Bilirubin Negative Urine Urobilinogen Negative Ur Leukocyte Esterase Negative IMAGING: CT head MRI brain reviewed ASSESSMENT/PLAN: Plan 83 yo M with PMHx of HLD and BCC who was sent by PCP for newly found hemorrhagic brain mass. As per notes, patient daughter reported steady decline in cognition over the past 3 months with increased confusion. Daughters have noticed that he has become increasingly forgetful and often asking the same question multiple times. His daughters finally called PCP and was told to come in to office. When he arrived at office CT head was done and identified a mass with possible bleed and edema. Patient was subsequently transferred to ED. MRI brain completed and reviewed, discussed with patient. 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 Patient admitted for ICU and getting critical care monitoring. NSGY noted reviewed, considering intervention. Discussed with PCP via phone when he called ICU. Patient on decadron. Will add keppra for seizure prophylaxis. Defer on operative mgmt to NSGY, patient, family. Recommend tight blood pressure control, avoid head trauma. Hold antiplatelet medications. Repeat CT in 24hr to re-eval if surgery not pursued. Critical care time 45 mins.
--- NOTE | 2018-05-24 11:56 | PN ---
Teaching Attending Note Name of Resident: Eduardo Ledezma ATTENDING PHYSICIAN STATEMENT I saw and evaluated the patient. I reviewed the resident's note and discussed the case with the resident. I agree with the resident's findings and plan as documented. SUBJECTIVE: Patient seen and examined in the ICU. Awake and alert. Denies CP or SOB. No CISNEROS or dizziness. For possible OR today. Intake & Output 05/21/18 05/22/18 05/23/18 05/24/18 23:59 23:59 23:59 23:59 Output Total 400 Balance -400 Weight 204 lb 9 oz Last Vital Signs Temp Pulse Resp BP Pulse Ox 98.7 F 74 18 138/79 96 05/24/18 10:00 05/24/18 10:00 05/24/18 10:00 05/24/18 10:00 05/24/18 08:48 Active Medications Chlorhexidine Gluconate (Hibiclens For Decolonization -) 1 applic TP HS [facility] Dexamethasone Sodium Phosphate (Decadron Injection -) 4 mg IVPUSH Q6H [facility] Last Admin: 05/24/18 10:11 Dose: 4 mg Levetiracetam (Keppra Injection -) 500 mg IVPB BID [facility] Last Admin: 05/24/18 10:12 Dose: 500 mg Mupirocin (Bactroban Ointment (For Decolonization) -) 1 applic NS BID [facility] Stop: 05/29/18 09:59 Last Admin: 05/24/18 10:11 Dose: 1 applic Pantoprazole Sodium (Protonix -) 40 mg PO DAILY [facility] Last Admin: 05/24/18 10:12 Dose: 40 mg GENERAL: Awake, alert, and fully oriented, in no acute distress. HEAD: Normal with no signs of trauma. EYES: sclera anicteric, conjunctiva clear. No lid lag. EARS, NOSE, THROAT: Ears normal, nares patent, oropharynx clear without exudates. Moist mucous membranes. NECK: Normal range of motion, supple without lymphadenopathy, JVD, or masses. LUNGS: Clear. No wheezes, and no crackles. No accessory muscle use. HEART: Regular rate and rhythm, normal S1 and S2 without murmur, rub or gallop. ABDOMEN: Soft, nontender, not distended, normoactive bowel sounds, no guarding, no rebound, no masses. MUSCULOSKELETAL: Normal range of motion at all joints. No CVA tenderness. UPPER EXTREMITIES: 2+ pulses, warm, well-perfused. No cyanosis. LOWER EXTREMITIES: 2+ pulses, warm, well-perfused. NEUROLOGICAL: Non-focal. PSYCHIATRIC: Cooperative. Good eye contact. Appropriate mood and affect. SKIN: Warm, dry Laboratory Results - last 24 hr 05/23/18 05/23/18 05/23/18 14:33 14:33 14:33 WBC 5.9 RBC 4.10 Hgb 12.7 Hct 37.2 D MCV 90.5 MCH 31.0 MCHC 34.2 RDW 14.6 Plt Count 177 MPV 7.3 L Absolute Neuts (auto) 3.5 Neutrophils % 59.6 Lymphocytes % 28.6 D Monocytes % 7.2 Eosinophils % 3.6 Basophils % 1.0 Nucleated RBC % 0 PT with INR 11.90 INR 1.01 PTT (Actin FS) Sodium 141 Potassium 4.5 Chloride 107 Carbon Dioxide 25 Anion Gap 8 BUN 16 Creatinine 1.1 Creat Clearance w eGFR > 60 Random Glucose 84 Calcium 8.7 Total Bilirubin 0.5 AST 22 ALT 20 Alkaline Phosphatase 75 Creatine Kinase 95 Troponin I 0.02 Total Protein 7.5 Albumin 3.9 Urine Color Urine Appearance Urine pH Ur Specific [place] Urine Protein Urine Glucose (UA) Urine Ketones Urine Blood Urine Nitrite Urine Bilirubin Urine Urobilinogen Ur Leukocyte Esterase Blood Type Antibody Screen 05/23/18 05/23/18 05/24/18 15:21 20:29 05:30 WBC 4.7 RBC 3.88 L Hgb 11.9 Hct 34.7 L MCV 89.4 MCH 30.7 MCHC 34.3 RDW 14.3 Plt Count 178 MPV 7.6 Absolute Neuts (auto) 3.6 Neutrophils % 78.4 D Lymphocytes % 19.3 D Monocytes % 2.1 L Eosinophils % 0.1 D Basophils % 0.1 Nucleated RBC % 0 PT with INR INR PTT (Actin FS) Sodium Potassium Chloride Carbon Dioxide Anion Gap BUN Creatinine Creat Clearance w eGFR Random Glucose Calcium Total Bilirubin AST ALT Alkaline Phosphatase Creatine Kinase Troponin I Total Protein Albumin Urine Color Ltyellow Urine Appearance Clear Urine pH 5.0 Ur Specific [place] 1.012 Urine Protein Negative Urine Glucose (UA) Negative Urine Ketones Negative Urine Blood Negative Urine Nitrite Negative Urine Bilirubin Negative Urine Urobilinogen Negative Ur Leukocyte Esterase Negative Blood Type Cancelled Antibody Screen Cancelled 05/24/18 05/24/18 05/24/18 05:30 09:00 09:12 WBC RBC Hgb Hct MCV MCH MCHC RDW Plt Count MPV Absolute Neuts (auto) Neutrophils % Lymphocytes % Monocytes % Eosinophils % Basophils % Nucleated RBC % PT with INR INR PTT (Actin FS) Sodium 140 Potassium 4.1 Chloride 105 Carbon Dioxide 27 Anion Gap 8 BUN 16 Creatinine 1.0 Creat Clearance w eGFR > 60 Random Glucose 138 H Calcium 8.5 Total Bilirubin 0.4 AST 17 ALT 16 Alkaline Phosphatase 62 Creatine Kinase Troponin I Total Protein 6.3 L Albumin 3.1 L Urine Color Urine Appearance Urine pH Ur Specific [place] Urine Protein Urine Glucose (UA) Urine Ketones Urine Blood Urine Nitrite Urine Bilirubin Urine Urobilinogen Ur Leukocyte Esterase Blood Type O POSITIVE O POSITIVE Antibody Screen Negative Cancelled 05/24/18 10:25 WBC RBC Hgb Hct MCV MCH MCHC RDW Plt Count MPV Absolute Neuts (auto) Neutrophils % Lymphocytes % Monocytes % Eosinophils % Basophils % Nucleated RBC % PT with INR INR PTT (Actin FS) 29.1 Sodium Potassium Chloride Carbon Dioxide Anion Gap BUN Creatinine Creat Clearance w eGFR Random Glucose Calcium Total Bilirubin AST ALT Alkaline Phosphatase Creatine Kinase Troponin I Total Protein Albumin Urine Color Urine Appearance Urine pH Ur Specific [place] Urine Protein Urine Glucose (UA) Urine Ketones Urine Blood Urine Nitrite Urine Bilirubin Urine Urobilinogen Ur Leukocyte Esterase Blood Type Antibody Screen ASSESSMENT/PLAN: Right temporal lobe mass with components of necrosis and cerebral vasogenic edema. 3.6x 4.4x 4.8 cm HTN HPL Keppra Neurosurgical evaluation O2 as needed Follow Neuro exam Decadron BP monitoring Dr Mtz
--- NOTE | 2018-05-24 12:18 | EKG ---
Test Reason : Blood Pressure : / mmHG Vent. Rate : 073 BPM Atrial Rate : 073 BPM P-R Int : 192 ms QRS Dur : 080 ms QT Int : 410 ms P-R-T Axes : 023 -10 -01 degrees QTc Int : 451 ms NORMAL SINUS RHYTHM NORMAL ECG WHEN COMPARED WITH ECG OF 23-JUN-2016 20:17, FUSION COMPLEXES ARE NO LONGER PRESENT PREMATURE VENTRICULAR COMPLEXES ARE NO LONGER PRESENT PREMATURE ATRIAL COMPLEXES ARE NO LONGER PRESENT CRITERIA FOR INFERIOR-POSTERIOR INFARCT ARE NO LONGER PRESENT Confirmed by POLINA GOMEZ MD ([id number]) on 05/24/2018 12:18:08 PM Referred By: Confirmed By:POLINA GOMEZ MD
--- NOTE | 2018-05-24 12:26 | PN ---
Physical Exam: SUBJECTIVE: Patient seen and examined. CLIVE overnight. Pt. walked to the bathroom overnight. NPO after midnight. Pt. is sometimes confused. Pt. states last colonoscopy was over 10 years ago, with unknown results. OBJECTIVE: Vital Signs Period Temp Pulse Resp BP Sys/[place] Pulse Ox Last 24 Hr 98 F-98.7 F 56-84 12-22 109-165/58-87 96-100 GENERAL: The patient is awake, alert, and fully oriented, in no acute distress. EYES: PERRL, extraocular movements intact, sclera anicteric, conjunctiva clear. No ptosis. ENT: Ears normal, nares patent, oropharynx clear without exudates, moist mucous membranes. LUNGS: Breath sounds equal, clear to auscultation bilaterally, no wheezes, no crackles, no accessory muscle use. HEART: Regular rate and rhythm, S1, S2 without murmur, soft heart beat ABDOMEN: Soft, nontender, nondistended, normoactive bowel sounds, no guarding. EXTREMITIES: 1+ right radial pulse, warm, well-perfused, no calf tenderness, no edema, 5/5 muscle strength in all extremities. NEUROLOGICAL: Cranial nerves II through XII grossly intact. Normal speech, gait not observed. PSYCH: Normal mood, normal affect. SKIN: Warm, dry, normal turgor Laboratory Results - last 24 hr 05/23/18 05/23/18 05/23/18 14:33 14:33 14:33 WBC 5.9 RBC 4.10 Hgb 12.7 Hct 37.2 D MCV 90.5 MCH 31.0 MCHC 34.2 RDW 14.6 Plt Count 177 MPV 7.3 L Absolute Neuts (auto) 3.5 Neutrophils % 59.6 Lymphocytes % 28.6 D Monocytes % 7.2 Eosinophils % 3.6 Basophils % 1.0 Nucleated RBC % 0 PT with INR 11.90 INR 1.01 PTT (Actin FS) Sodium 141 Potassium 4.5 Chloride 107 Carbon Dioxide 25 Anion Gap 8 BUN 16 Creatinine 1.1 Creat Clearance w eGFR > 60 Random Glucose 84 Calcium 8.7 Total Bilirubin 0.5 AST 22 ALT 20 Alkaline Phosphatase 75 Creatine Kinase 95 Troponin I 0.02 Total Protein 7.5 Albumin 3.9 Urine Color Urine Appearance Urine pH Ur Specific [place] Urine Protein Urine Glucose (UA) Urine Ketones Urine Blood Urine Nitrite Urine Bilirubin Urine Urobilinogen Ur Leukocyte Esterase Blood Type Antibody Screen 05/23/18 05/23/18 05/24/18 15:21 20:29 05:30 WBC 4.7 RBC 3.88 L Hgb 11.9 Hct 34.7 L MCV 89.4 MCH 30.7 MCHC 34.3 RDW 14.3 Plt Count 178 MPV 7.6 Absolute Neuts (auto) 3.6 Neutrophils % 78.4 D Lymphocytes % 19.3 D Monocytes % 2.1 L Eosinophils % 0.1 D Basophils % 0.1 Nucleated RBC % 0 PT with INR INR PTT (Actin FS) Sodium Potassium Chloride Carbon Dioxide Anion Gap BUN Creatinine Creat Clearance w eGFR Random Glucose Calcium Total Bilirubin AST ALT Alkaline Phosphatase Creatine Kinase Troponin I Total Protein Albumin Urine Color Ltyellow Urine Appearance Clear Urine pH 5.0 Ur Specific [place] 1.012 Urine Protein Negative Urine Glucose (UA) Negative Urine Ketones Negative Urine Blood Negative Urine Nitrite Negative Urine Bilirubin Negative Urine Urobilinogen Negative Ur Leukocyte Esterase Negative Blood Type Cancelled Antibody Screen Cancelled 05/24/18 05/24/18 05/24/18 05:30 09:00 09:12 WBC RBC Hgb Hct MCV MCH MCHC RDW Plt Count MPV Absolute Neuts (auto) Neutrophils % Lymphocytes % Monocytes % Eosinophils % Basophils % Nucleated RBC % PT with INR INR PTT (Actin FS) Sodium 140 Potassium 4.1 Chloride 105 Carbon Dioxide 27 Anion Gap 8 BUN 16 Creatinine 1.0 Creat Clearance w eGFR > 60 Random Glucose 138 H Calcium 8.5 Total Bilirubin 0.4 AST 17 ALT 16 Alkaline Phosphatase 62 Creatine Kinase Troponin I Total Protein 6.3 L Albumin 3.1 L Urine Color Urine Appearance Urine pH Ur Specific [place] Urine Protein Urine Glucose (UA) Urine Ketones Urine Blood Urine Nitrite Urine Bilirubin Urine Urobilinogen Ur Leukocyte Esterase Blood Type O POSITIVE O POSITIVE Antibody Screen Negative Cancelled 05/24/18 10:25 WBC RBC Hgb Hct MCV MCH MCHC RDW Plt Count MPV Absolute Neuts (auto) Neutrophils % Lymphocytes % Monocytes % Eosinophils % Basophils % Nucleated RBC % PT with INR INR PTT (Actin FS) 29.1 Sodium Potassium Chloride Carbon Dioxide Anion Gap BUN Creatinine Creat Clearance w eGFR Random Glucose Calcium Total Bilirubin AST ALT Alkaline Phosphatase Creatine Kinase Troponin I Total Protein Albumin Urine Color Urine Appearance Urine pH Ur Specific [place] Urine Protein Urine Glucose (UA) Urine Ketones Urine Blood Urine Nitrite Urine Bilirubin Urine Urobilinogen Ur Leukocyte Esterase Blood Type Antibody Screen Active Medications Current Medications Chlorhexidine Gluconate (Hibiclens For Decolonization -) 1 applic TP HS [facility] Dexamethasone Sodium Phosphate (Decadron Injection -) 4 mg IVPUSH Q6H [facility] Last Admin: 05/24/18 10:11 Dose: 4 mg Levetiracetam (Keppra Injection -) 500 mg IVPB BID [facility] Last Admin: 05/24/18 10:12 Dose: 500 mg Mupirocin (Bactroban Ointment (For Decolonization) -) 1 applic NS BID [facility] Stop: 05/29/18 09:59 Last Admin: 05/24/18 10:11 Dose: 1 applic Pantoprazole Sodium (Protonix -) 40 mg PO DAILY [facility] Last Admin: 05/24/18 10:12 Dose: 40 mg Home Medications Medication Instructions Recorded Olmesartan Medoxomil [Benicar -] 20 mg PO DAILY 06/23/16 Simvastatin 20 mg PO HS 06/23/16 Tamsulosin HCl [Flomax] 0.4 mg PO DAILY 05/23/18 ASSESSMENT/PLAN: An 83 y.o. M w/ PMHx of HLD, HLD, HTN and basal cell carcinoma s/p resection ~ 20 years ago(never on Chemo/radiation), presents with 2 months of worsening episodes of confusion and disorientation. #Neurology -Brain mass w/ AMS Brain MRI shows solitary lobulated 5x4.4x4 cm heterogenously enhancing, partially hemorrhagic right temporal mass w/ perilesional edema w/ associated midline shift, mild obstructive dilatation of left C/w Keppra as seizure Ppx. #F/E/N -no IVF -monitor electrolytes and replete as needed -NPO #DVT Ppx. -DVT SCDs -GI Protonix 40mg PO Visit type - Emergency Visit Emergency Visit: No - New Patient This patient is new to me today: Yes Date on this admission: 05/25/18 - Critical Care Critical Care patient: No - Discharge Referral Referred to [facility] Med P.C.: No
--- NOTE | 2018-05-24 12:40 | CONSULT ---
Consult Consult Specialty:: Heme/Onc Referred by:: Dr. Heike Ochoa Reason for Consultation:: Brain lesion/cancer - History of Present Illness Chief Complaint: brain mass History of Present Illness: 83M with history of HTN, HLD, BPH, and basal cell carcinoma sent by PCP presents to the hospital by his PCP for a hemorrhagic brain mass found on CT scan. BCC was treated with surgery unsure if he had any chemo or immuno therapy. Patient has been getting confused and agitated for the past month but in the last week its gotten really bad per daughter who is at bedside. He gets agitated and he becomes forgetful. He also at times will ask the same question over and over again. 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 He denies any neurological deficits. Patient found to have a hemorrhagic brain mass and sent by PCP. Seen by neurosurgery who will be taking patient to the OR. He denies any fever chills chest pain shortness of breath or leg swelling. Denies easy bruising or family history of cancer. Patient worked up with CT chest ABD pelvis which did not show any evidence on cancer. - History Source History Provided By: Patient, Family Member Limitations to Obtaining History: Poor Historian - Past Medical History Cardio/Vascular: Yes: HTN, Hyperlipdemia Renal/: Yes: BPH Heme/Onc: Yes: Other (basal cell carcinoma) - Past Surgical History Additional Surgical History: BCC excision of mass - Alcohol/Substance Use Hx Alcohol Use: No - Smoking History Smoking history: Former smoker Have you smoked in the past 12 months: No Home Medications - Allergies Allergies/Adverse Reactions: Allergies Allergy/AdvReac Type Severity Reaction Status Date / Time No Known Allergies Allergy Verified 06/23/16 19:33 - Home Medications Home Medications: Ambulatory Orders Olmesartan Medoxomil [Benicar -] 20 mg PO DAILY 06/23/16 Simvastatin 20 mg PO HS 06/23/16 Tamsulosin HCl [Flomax] 0.4 mg PO DAILY 05/23/18 Family Disease History - Family Disease History Family History: Denies Review of Systems - Review of Systems Constitutional: reports: No Symptoms Eyes: reports: No Symptoms HENT: reports: No Symptoms Neck: reports: No Symptoms Cardiovascular: reports: No Symptoms Respiratory: reports: No Symptoms Gastrointestinal: reports: No Symptoms Genitourinary: reports: No Symptoms Breasts: reports: No Symptoms Reported Musculoskeletal: reports: No Symptoms Integumentary: reports: No Symptoms Neurological: reports: Confusion, Other (forgetful asks questions over and over again) Hematology/Lymphatic: reports: No Symptoms Psychiatric: reports: Anxiety Physical Exam Vital Signs: Vital Signs Temperature 98.7 F 05/24/18 10:00 Pulse Rate 65 05/24/18 12:00 Respiratory Rate 20 05/24/18 12:00 Blood Pressure 131/65 05/24/18 12:00 O2 Sat by Pulse Oximetry (%) 96 05/24/18 08:48 Constitutional: Yes: Well Nourished, No Distress, Calm Eyes: Yes: Conjunctiva Clear, EOM Intact, PERRL HENT: Yes: Atraumatic, Normocephalic Neck: Yes: Supple, Trachea Midline. No: Lymphadenopathy Cardiovascular: Yes: Regular Rate and Rhythm, S1, S2 Respiratory: Yes: Regular, CTA Bilaterally Gastrointestinal: Yes: Normal Bowel Sounds, Soft Breast(s): Yes: WNL Extremities: Yes: WNL Edema: No Neurological: Yes: Alert, Oriented, Cran Nerves II-XII Intact, Other (global muscle strength 5/5 no double vision no headaches) Psychiatric: Yes: Alert, Oriented (to self and place. Thinks 1987) Labs: CBC, BMP 05/24/18 05:30 05/24/18 05:30 Imaging - Results MRI: Report Reviewed, Image Reviewed ( A solitary lobulated 5 x 4.4 x 4 cm heterogeneously enhancing partially hemorrhagic right temporal lobe mass lesion is seen - ? high-grade glioma. There is prominent perilesional edema with moderate contralateral midline displacement. Associated mild obstructive dilatation of the left lateral ventricle is noted.) Assessment/Plan 83M with history of HTN, HLD, and BCC HLD presents from his PCP office for hemorrhagic brain mass. MRI: A solitary lobulated 5 x 4.4 x 4 cm heterogeneously enhancing partially hemorrhagic right temporal lobe mass lesion is seen - ? high-grade glioma. There is prominent perilesional edema with moderate contralateral midline displacement. Associated mild obstructive dilatation of the left lateral ventricle is noted. 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 Velasquez EMR and patient denies Denies NSAID use Will follow post op and follow pathology for tissue diagnosis do not suspect this is a metastatic lesion as there is no primary found of ascencio scan of the body. Case discussed with Dr. Spann
[2018-05-24] MEDS ORDERED: GENTAMICIN SO4 80 MG/2 ML VIAL ONE (13:30)
[2018-05-24] MEDS ORDERED: THROMBIN (BOVINE) 20,000 UNIT VIAL TP ONE (13:30)
[2018-05-24] MEDS ORDERED: ROCURONIUM BROMIDE 50 MG/5 ML VIAL ONE ×2 (13:54→14:35)
[2018-05-24] MEDS ORDERED: PROPOFOL 20 ML ONE (13:54)
[2018-05-24] MEDS ORDERED: fentaNYL CITRATE 250 MCG/5 ML VIAL ONE (13:54)
[2018-05-24] MEDS ORDERED: LIDOCAINE HCL/PF 2% SDV 5ML VIAL ONE (13:54)
--- NOTE | 2018-05-24 14:21 | PN ---
Physical Exam: SUBJECTIVE: Patient seen and examined at bedside. no acute events overnight. denies cp, sob. going for OR today OBJECTIVE: Vital Signs Period Temp Pulse Resp BP Sys/Pendleton Pulse Ox Last 24 Hr 98 F-98.7 F 56-74 12-22 109-154/58-87 96-100 GENERAL: AOX2 does not know the year NAD HEAD: NCAT EYES: Pupils equal, round and reactive to light, extraocular movements intact, sclera anicteric, conjunctiva clear. No lid lag. EARS, NOSE, THROAT: Ears normal, nares patent, oropharynx clear without exudates. MMM NECK: Normal range of motion, supple without lymphadenopathy, JVD, or masses. LUNGS: CTAB. No wheezes, and no crackles. No accessory muscle use. HEART: RRR, normal S1 and S2 without murmur, rub or gallop. ABDOMEN: Soft, NTND, normoactive bowel sounds, no guarding, no rebound, no masses. MUSCULOSKELETAL: Normal range of motion at all joints. UPPER EXTREMITIES: 2+ pulses, warm, well-perfused. No cyanosis. LOWER EXTREMITIES: 2+ pulses, warm, well-perfused. NEUROLOGICAL: Cranial nerves II-XII intact. Normal speech. power in b/l upper and lower limb 5/5, sensation to touch intact b/l upper and lower limb. PSYCHIATRIC: Cooperative. Good eye contact. Appropriate mood and affect. SKIN: Warm, dry, Laboratory Results - last 24 hr 05/23/18 05/23/18 05/23/18 14:33 14:33 14:33 WBC 5.9 RBC 4.10 Hgb 12.7 Hct 37.2 D MCV 90.5 MCH 31.0 MCHC 34.2 RDW 14.6 Plt Count 177 MPV 7.3 L Absolute Neuts (auto) 3.5 Neutrophils % 59.6 Lymphocytes % 28.6 D Monocytes % 7.2 Eosinophils % 3.6 Basophils % 1.0 Nucleated RBC % 0 PT with INR 11.90 INR 1.01 PTT (Actin FS) Sodium 141 Potassium 4.5 Chloride 107 Carbon Dioxide 25 Anion Gap 8 BUN 16 Creatinine 1.1 Creat Clearance w eGFR > 60 Random Glucose 84 Calcium 8.7 Total Bilirubin 0.5 AST 22 ALT 20 Alkaline Phosphatase 75 Creatine Kinase 95 Troponin I 0.02 Total Protein 7.5 Albumin 3.9 Urine Color Urine Appearance Urine pH Ur Specific [place] Urine Protein Urine Glucose (UA) Urine Ketones Urine Blood Urine Nitrite Urine Bilirubin Urine Urobilinogen Ur Leukocyte Esterase Blood Type Antibody Screen 05/23/18 05/23/18 05/24/18 15:21 20:29 05:30 WBC 4.7 RBC 3.88 L Hgb 11.9 Hct 34.7 L MCV 89.4 MCH 30.7 MCHC 34.3 RDW 14.3 Plt Count 178 MPV 7.6 Absolute Neuts (auto) 3.6 Neutrophils % 78.4 D Lymphocytes % 19.3 D Monocytes % 2.1 L Eosinophils % 0.1 D Basophils % 0.1 Nucleated RBC % 0 PT with INR INR PTT (Actin FS) Sodium Potassium Chloride Carbon Dioxide Anion Gap BUN Creatinine Creat Clearance w eGFR Random Glucose Calcium Total Bilirubin AST ALT Alkaline Phosphatase Creatine Kinase Troponin I Total Protein Albumin Urine Color Ltyellow Urine Appearance Clear Urine pH 5.0 Ur Specific [place] 1.012 Urine Protein Negative Urine Glucose (UA) Negative Urine Ketones Negative Urine Blood Negative Urine Nitrite Negative Urine Bilirubin Negative Urine Urobilinogen Negative Ur Leukocyte Esterase Negative Blood Type Cancelled Antibody Screen Cancelled 05/24/18 05/24/18 05/24/18 05:30 09:00 09:12 WBC RBC Hgb Hct MCV MCH MCHC RDW Plt Count MPV Absolute Neuts (auto) Neutrophils % Lymphocytes % Monocytes % Eosinophils % Basophils % Nucleated RBC % PT with INR INR PTT (Actin FS) Sodium 140 Potassium 4.1 Chloride 105 Carbon Dioxide 27 Anion Gap 8 BUN 16 Creatinine 1.0 Creat Clearance w eGFR > 60 Random Glucose 138 H Calcium 8.5 Total Bilirubin 0.4 AST 17 ALT 16 Alkaline Phosphatase 62 Creatine Kinase Troponin I Total Protein 6.3 L Albumin 3.1 L Urine Color Urine Appearance Urine pH Ur Specific [place] Urine Protein Urine Glucose (UA) Urine Ketones Urine Blood Urine Nitrite Urine Bilirubin Urine Urobilinogen Ur Leukocyte Esterase Blood Type O POSITIVE O POSITIVE Antibody Screen Negative Cancelled 05/24/18 10:25 WBC RBC Hgb Hct MCV MCH MCHC RDW Plt Count MPV Absolute Neuts (auto) Neutrophils % Lymphocytes % Monocytes % Eosinophils % Basophils % Nucleated RBC % PT with INR INR PTT (Actin FS) 29.1 Sodium Potassium Chloride Carbon Dioxide Anion Gap BUN Creatinine Creat Clearance w eGFR Random Glucose Calcium Total Bilirubin AST ALT Alkaline Phosphatase Creatine Kinase Troponin I Total Protein Albumin Urine Color Urine Appearance Urine pH Ur Specific [place] Urine Protein Urine Glucose (UA) Urine Ketones Urine Blood Urine Nitrite Urine Bilirubin Urine Urobilinogen Ur Leukocyte Esterase Blood Type Antibody Screen Active Medications Generic Name Dose Route Start Last Admin Trade Name Mike PRN Reason Stop Dose Admin Chlorhexidine Gluconate 1 applic 05/24/18 22:00 Hibiclens For Decolonization - TP HS STORMY Dexamethasone Sodium Phosphate 4 mg 05/23/18 22:00 05/24/18 10:11 Decadron Injection - IVPUSH 4 mg Q6H STORMY Administration Levetiracetam 500 mg 05/24/18 10:00 05/24/18 10:12 Keppra Injection - IVPB 500 mg BID STORMY Administration Mupirocin 1 applic 05/24/18 10:00 05/24/18 10:11 Bactroban Ointment (For Decolonization) - NS 05/29/18 09:59 1 applic BID STORMY Administration Pantoprazole Sodium 40 mg 05/23/18 22:00 05/24/18 10:12 Protonix - PO 40 mg DAILY STORMY Administration ASSESSMENT/PLAN: 83 year old with past medical history of HLD, htn and basal cell carcinoma who presents with newly found necrotic brain mass found, going for OR today 1) Brain mass CT- R temporal lobe mass or bilobed heterogenous in attenuation necrotic mass with significant right cerebral vasogenic edema. 3.6x 4.4x4.8 cm -got 10mg of dexamethasone in ED -got keppra 500mg in ED for prophylaxis. -Keep head end elevated. -neurosurgery and neurology on case. -MRI: A solitary lobulated 5 x 4.4 x 4 cm heterogeneously enhancing partially hemorrhagic right temporal lobe mass lesion is seen - ? high-grade glioma. There is prominent perilesional edema with moderate contralateral midline displacement. Associated mild obstructive dilatation of the left lateral ventricle is noted. -CT chest, abdomen and pelvis shows no discrete evidence of mass lesion -type and screen. -dexaethasone 4mg q6h standing for edema -Keppra 500mg BID for prophylaxis. -Discussed with Dr. lainez, going to OR today -frequent neuro exam. -cardiac monitoring. -Avoid IV fluid. -Keep SBP below 140 HTN -olmesartan -monitor HLD -simvastatin 20mg Fluid: 0rally allowed. Avoid IV fluid . electrolytes: reviewed nutrition: NPO for surgery DVT pro: scd GI pro: protonix Dispo: - ICU and going for surgery today Visit type - Emergency Visit Emergency Visit: Yes ED Registration Date: 05/23/18 Care time: The patient presented to the Emergency Department on the above date and was hospitalized for further evaluation of their emergent condition. - New Patient This patient is new to me today: Yes Date on this admission: 05/24/18 - Critical Care Critical Care patient: Yes Total Critical Care Time (in minutes): 38 Critical Care Statement: The care of this patient involved high complexity decision making to prevent further life threatening deterioration of the patient 's condition and/or to evaluate & treat vital organ system(s) failure or risk of failure.
[2018-05-24] MEDS ORDERED: VANCOMYCIN 1,000 MG VIAL (RESTRICTED TO ID ONLY) ONE (14:35)
[2018-05-24] MEDS ORDERED: ceFAZolin SODIUM 1 GM VIAL ONE (14:35)
--- NOTE | 2018-05-24 15:52 | PN ---
Teaching Attending Note Name of Resident: Nithin Mckeon ATTENDING PHYSICIAN STATEMENT I saw and evaluated the patient. I reviewed the resident's note and discussed the case with the resident. I agree with the resident's findings and plan as documented. SUBJECTIVE: Patient is a 83yo male was admitted for a necrotic brain mass. OBJECTIVE: Vital Signs Temperature 98.7 F 05/24/18 10:00 Pulse Rate 65 05/24/18 12:00 Respiratory Rate 20 05/24/18 12:00 Blood Pressure 131/65 05/24/18 12:00 O2 Sat by Pulse Oximetry (%) 96 05/24/18 08:48 GENERAL: AOX2 does not know the year NAD HEAD: NCAT,EYES: Pupils equal, round and reactive to light, extraocular movements intact, conjunctiva clear. EARS, NOSE, THROAT: Ears normal, oropharynx clear without exudates. MMM NECK: Normal range of motion, supple without lymphadenopathy, JVD, or masses. LUNGS: CTAB. No wheezes, and no crackles. No accessory muscle use. HEART: RRR, normal S1 and S2 without murmur, rub or gallop. ABDOMEN: Soft, NTND, normoactive bowel sounds, no guarding, no rebound, no masses. MUSCULOSKELETAL: Normal range of motion at all joints. EXTREMITIES: 2+ pulses, warm, well-perfused. No cyanosis. NEUROLOGICAL: Cranial nerves II-XII intact. Normal speech. PSYCHIATRIC: Cooperative. Good eye contact. Appropriate mood and affect. SKIN: Warm, dry. CBCD WBC 4.7 K/mm3 (4.0-10.0) 05/24/18 05:30 RBC 3.88 M/mm3 (4.00-5.60) L 05/24/18 05:30 Hgb 11.9 GM/dL (11.7-16.9) 05/24/18 05:30 Hct 34.7 % (35.4-49) L 05/24/18 05:30 MCV 89.4 fl (80-96) 05/24/18 05:30 MCHC 34.3 g/dl (32.0-35.9) 05/24/18 05:30 RDW 14.3 % (11.9-15.9) 05/24/18 05:30 Plt Count 178 K/MM3 (134-434) 05/24/18 05:30 MPV 7.6 fl (7.5-11.1) 05/24/18 05:30 CMP Sodium 140 mmol/L (136-145) 05/24/18 05:30 Potassium 4.1 mmol/L (3.5-5.1) 05/24/18 05:30 Chloride 105 mmol/L (98-107) 05/24/18 05:30 Carbon Dioxide 27 mmol/L (21-32) 05/24/18 05:30 Anion Gap 8 MMOL/L (8-16) 05/24/18 05:30 BUN 16 mg/dL (7-18) 05/24/18 05:30 Creatinine 1.0 mg/dL (0.55-1.3) 05/24/18 05:30 Creat Clearance w eGFR > 60 (>60) 05/24/18 05:30 Random Glucose 138 mg/dL (74-106) H 05/24/18 05:30 Calcium 8.5 mg/dL (8.5-10.1) 05/24/18 05:30 Total Bilirubin 0.4 mg/dL (0.2-1) 05/24/18 05:30 AST 17 U/L (15-37) 05/24/18 05:30 ALT 16 U/L (13-61) 05/24/18 05:30 Alkaline Phosphatase 62 U/L (45-117) 05/24/18 05:30 Total Protein 6.3 g/dl (6.4-8.2) L 05/24/18 05:30 Albumin 3.1 g/dl (3.4-5.0) L 05/24/18 05:30 CARDIAC ENZYMES Creatine Kinase 95 IU/L (26-308) 05/23/18 14:33 Troponin I 0.02 ng/ml (0.00-0.05) 05/23/18 14:33 Current Medications Generic Name Dose Route Start Last Admin Trade Name Freq PRN Reason Stop Dose Admin Chlorhexidine Gluconate 1 applic 05/24/18 22:00 Hibiclens For Decolonization - TP HS STORMY Dexamethasone Sodium Phosphate 4 mg 05/23/18 22:00 05/24/18 10:11 Decadron Injection - IVPUSH 4 mg Q6H STORMY Administration Levetiracetam 500 mg 05/24/18 10:00 05/24/18 10:12 Keppra Injection - IVPB 500 mg BID STORMY Administration Mupirocin 1 applic 05/24/18 10:00 05/24/18 10:11 Bactroban Ointment (For Decolonization) - NS 05/29/18 09:59 1 applic BID STORMY Administration Pantoprazole Sodium 40 mg 05/23/18 22:00 05/24/18 10:12 Protonix - PO 40 mg DAILY STORMY Administration Home Medications Medication Instructions Recorded Olmesartan Medoxomil [Benicar -] 20 mg PO DAILY 06/23/16 Simvastatin 20 mg PO HS 06/23/16 Tamsulosin HCl [Flomax] 0.4 mg PO DAILY 05/23/18 CT head from 05/23 results and images reviewed ASSESSMENT AND PLAN: Patient is a 83 yo male with PMHx of HTN, HLD, basal cell carcinoma s/p excision, admitted with a new right temporal lobe necrotic mass with vasogenic edema #POD #0 for R parietal craniotomy, excision of brain mass by , neurosx on the case, IV decadron/IV keppra for seizure protocol #HTN BP controlled ,will continue with Benicar , keep SBP goal below 140s #HLD continue Zocor at home #Hx of Basal Cell carcinoma s/p excision DVT Px with SCDs, No Heparin contraindicated.
[2018-05-24] MEDS ORDERED: ONDANSETRON 4 MG/2 ML VIAL ONE (16:02)
[2018-05-24] MEDS ORDERED: GLYCOPYRROLATE 0.2 MG/1 ML VIAL ONE (16:04)
[2018-05-24] MEDS ORDERED: NEOSTIGMINE METHYLSULFATE 0.5 MG/1 ML - 10 ML MDV ONE (16:05)
[2018-05-24] MEDS ORDERED: ceFAZolin SODIUM 1 GM VIAL IVPB ONE (16:50)
[2018-05-24] MEDS ORDERED: VANCOMYCIN 1,000 MG VIAL (RESTRICTED TO ID ONLY) IVPB ONE (16:50)
[2018-05-24] MEDS ORDERED: ACETAMINOPHEN 1000 MG/100 ML VIAL (NON FORMULARY) IVPB PRN (17:00)
--- NOTE | 2018-05-24 17:07 | OP ---
Operative Note - Note: Operative Date: 05/24/18 Pre-Operative Diagnosis: Encancing Right parietal brain mass Operation: R parietal craniotomy, excision of brain mass Findings: as dictated Implants: as dictated Post-Operative Diagnosis: Same as Pre-op Surgeon: Jin Ochoa Electric Solderer: Shayla Mcfarlane Anesthesiologist/WEB APPLICATION TESTER: Harrison Fofana Anesthesia: General, Local (40cc .25% Marcaine injected to incision at start of case) Specimens Removed: Portion of R parietal brain lesion Estimated Blood Loss (mls): 20 (ml) Drains & Tubes with Location: no drains Drains, Volume Out (mls): 100 (ml clear urine) Fluid Volume Replaced (mls): 700 (ml LR) Operative Report Dictated: Yes
--- NOTE | 2018-05-24 17:08 | SURG ---
Surgery Fitness Sales Consultant Note Fitness Sales Consultant: Shayla Mcfarlane PA-C (Suzy) Date of Service: 05/24/18 Diagnosis: Enhancing Right parietal brain mass Procedure: R craniotomy, excision of Right parietal brain mass I was present for the entirety of the operative procedure. For further detail, please refer to operative report. Visit type - Case Type Case Type: Scheduled - Emergency Emergency Visit: No - New patient This patient is new to me today: Yes Date on this admission: 05/24/18
--- NOTE | 2018-05-24 17:09 | PROC ---
Procedure Note Procedure: Placement of East catheter by PA in OR. No issues.
[2018-05-24 18:27] LABS: BASO % 0.1 % (0-2.0); HEMATOCRIT 36.8 % (35.4-49); HEMOGLOBIN 12.5 GM/dL (11.7-16.9); LYMPH % 6.1 % (8-40); MCH 30.9 pg (25.7-33.7); MCHC 33.9 g/dl (32.0-35.9); MEAN CELL VOLUME 91.3 fl (80-96); MEAN PLT VOLUME 7.6 fl (7.5-11.1); MONO % 6.7 % (3.8-10.2); NEUT % 87.1 % (42.8-82.8); PLATELET COUNT 193 K/MM3 (134-434); RBC 4.03 M/mm3 (4.00-5.60); RDW 14.5 % (11.9-15.9); WHITE BLOOD COUNT 9.6 K/mm3 (4.0-10.0)
[2018-05-24 18:49] LABS: ANION GAP 13 MMOL/L (8-16); BLOOD UREA NITROGEN 21 mg/dL (7-18); CALCIUM 8.2 mg/dL (8.5-10.1); CHLORIDE 104 mmol/L (98-107); CO2 26 mmol/L (21-32); CREATININE 1.4 mg/dL (0.55-1.3); GLUCOSE,RANDOM 125 mg/dL (74-106); MAGNESIUM 1.9 mg/dL (1.8-2.4); SODIUM 143 mmol/L (136-145)
[2018-05-24] MEDS ORDERED: SODIUM CHLORIDE 1,000 ML IV SCH (19:00)
[2018-05-24] MEDS: CEFAZOLIN 2 GM/D5W 2 GM/50 ML ML IVPB SCH (20:54)
--- NOTE | 2018-05-24 21:10 | PN ---
Progress Note (short form) - Note Progress Note: Patient complaining of headache in the area of the dressing and reports the dressing is extremely tight. Spoke to Dr. Ochoa and agrees with removing the dressing. Also recommended to discontinue fluid and steroids.
[2018-05-24] MEDS ORDERED: MUPIROCIN 2% TOPICAL OINTMENT FOR DECOLONIZATION NS SCH (22:00)
[2018-05-24] MEDS ORDERED: CHLORHEXIDINE GLUCONATE 4% CLEANSER FOR DECOLONIZATION TP SCH (22:00)
[2018-05-25] MEDS: CEFAZOLIN 2 GM/D5W 2 GM/50 ML ML IVPB SCH (04:54)
[2018-05-25] MEDS ORDERED: hydrALAZINE HCL 25 MG TABLET (FP) PO ONE (07:02)
[2018-05-25 07:30] LABS: ALK PHOS 62 U/L (45-117); ANION GAP 8 MMOL/L (8-16); BILIRUBIN,TOTAL 0.3 mg/dL (0.2-1); BLOOD UREA NITROGEN 25 mg/dL (7-18); CALCIUM 8.1 mg/dL (8.5-10.1); CHLORIDE 104 mmol/L (98-107); CO2 28 mmol/L (21-32); CREATININE 1.3 mg/dL (0.55-1.3); GLUCOSE,RANDOM 108 mg/dL (74-106); MAGNESIUM 2.1 mg/dL (1.8-2.4); PHOSPHOROUS 4.8 mg/dL (2.5-4.9); POTASSIUM 4.2 mmol/L (3.5-5.1); SGOT/AST 17 U/L (15-37); SGPT/ALT 15 U/L (13-61); SODIUM 140 mmol/L (136-145); TOT PROT 6.2 g/dl (6.4-8.2)
--- NOTE | 2018-05-25 08:16 | PN ---
Progress Note, Physician Chief Complaint: day 1 s/p crani for tumor resection - Current Medication List Current Medications: Active Medications Acetaminophen (Ofirmev Injection -) 1,000 mg IVPB Q6H PRN PRN Reason: FEVER Last Admin: 05/24/18 18:44 Dose: 1,000 mg Chlorhexidine Gluconate (Hibiclens For Decolonization -) 1 applic TP HS [facility] Last Admin: 05/24/18 22:00 Dose: 1 applic Levetiracetam (Keppra Injection -) 500 mg IVPB BID [facility] Last Admin: 05/24/18 22:00 Dose: 500 mg Mupirocin (Bactroban Ointment (For Decolonization) -) 1 applic NS BID [facility] Stop: 05/29/18 09:59 Last Admin: 05/24/18 22:01 Dose: 1 applic Pantoprazole Sodium (Protonix -) 40 mg PO DAILY [facility] Last Admin: 05/24/18 10:12 Dose: 40 mg - Objective Vital Signs: Vital Signs Temperature 98 F 05/25/18 02:00 Pulse Rate 60 05/25/18 06:00 Respiratory Rate 15 05/25/18 06:00 Blood Pressure 142/69 05/25/18 06:00 O2 Sat by Pulse Oximetry (%) 100 05/24/18 21:00 Labs: CBC, BMP 05/24/18 17:00 05/25/18 05:30 INR, PTT INR 1.01 (0.83-1.09) 05/23/18 14:33 Assessment/Plan OOB to chair, doing well after surgical decompression of tumor mass. No apparent anesthetic issues/complications at this time
[2018-05-25 08:25] LABS: BASO % 0.3 % (0-2.0); EOS % 0.1 % (0-4.5); HEMATOCRIT 38.9 % (35.4-49); HEMOGLOBIN 13.1 GM/dL (11.7-16.9); LYMPH % 13.9 % (8-40); MCH 30.2 pg (25.7-33.7); MCHC 33.6 g/dl (32.0-35.9); MEAN CELL VOLUME 89.8 fl (80-96); MEAN PLT VOLUME 7.4 fl (7.5-11.1); MONO % 8.1 % (3.8-10.2); NEUT % 77.6 % (42.8-82.8); PLATELET COUNT 192 K/MM3 (134-434); RBC 4.33 M/mm3 (4.00-5.60); RDW 14.3 % (11.9-15.9); WHITE BLOOD COUNT 11.1 K/mm3 (4.0-10.0)
--- NOTE | 2018-05-25 08:52 | PN ---
Progress Note (short form) - Note Progress Note: Neurology HISTORY OF PRESENT ILLNESS: 83 yo M with PMHx of HLD and BCC who was sent by PCP for newly found hemorrhagic brain mass. As per notes, patient daughter reported steady decline in cognition over the past 3 months with increased confusion. Daughters have noticed that he has become increasingly forgetful and often asking the same question multiple times. His daughters finally called PCP and was told to come in to office. When he arrived at office CT head was done and identified a mass with possible bleed and edema. Patient was subsequently transferred to ED. MRI brain completed and reviewed, discussed with patient. 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 Patient admitted for ICU and getting critical care monitoring. NSGY noted reviewed, completed R craniotomy yesterday per operative notes, follow up CT reviewed, partial R temporal mass with persistent mass effect. Spoke with ICU resident, decadron had been discontinued but should be restarted with ongoing mass effect and edema. Patient awake, alert, knows he's at [facility], can provide name of President (not Studio Producer), knows it's April but states 1918 and 1908, informed it's 2018. Will need frequent reorientation. Allergies No Known Allergies Allergy (Verified 06/23/16 19:33) Active Medications Acetaminophen (Ofirmev Injection -) 1,000 mg IVPB Q6H PRN PRN Reason: FEVER Last Admin: 05/24/18 18:44 Dose: 1,000 mg Chlorhexidine Gluconate (Hibiclens For Decolonization -) 1 applic TP HS [facility]OR[facility] Last Admin: 05/24/18 22:00 Dose: 1 applic Levetiracetam (Keppra Injection -) 500 mg IVPB BID [facility] Last Admin: 05/24/18 22:00 Dose: 500 mg Mupirocin (Bactroban Ointment (For Decolonization) -) 1 applic NS BID [facility] Stop: 05/29/18 09:59 Last Admin: 05/24/18 22:01 Dose: 1 applic Non-Formulary Medication (Simvastatin [Simvastatin]) 20 mg PO HS STORMY Non-Formulary Medication (Olmesartan Medoxomil) 20 mg PO DAILY ST[facility] Pantoprazole Sodium (Protonix -) 40 mg PO DAILY [facility] Last Admin: 05/24/18 10:12 Dose: 40 mg Tamsulosin HCl (Flomax -) 0.4 mg PO DAILY [facility] PHYSICAL EXAMINATION Vital Signs Period Temp Pulse Resp BP Sys/[place]endleton Pulse Ox Last 24 Hr 97.4 F-98.9 F 60-104 14-24 112-155/54-94 95-100 GENERAL: AAOx2(person/place/month but not year) , NAD HEAD:NC. scar over left eye and occipital scar from excision biopsy. EYES: PERRLA, EOMI, sclera anicteric, conjunctiva clear. No lid lag. EARS, NOSE, THROAT: moist mucous membranes. NECK:Supple without lymphadenopathy, JVD, or masses. LUNGS: CTAB No wheezes, and no crackles. No accessory muscle use. HEART: RRR, normal S1 and S2 ABDOMEN: Soft, NTND,NABS no guarding, no rebound, no masses. No hepatomegaly or splenomegaly. MUSCULOSKELETAL: Normal range of motion at all joints. No bony deformities or tenderness. No CVA tenderness. UPPER EXTREMITIES: 2+ pulses, warm, well-perfused. No cyanosis. No clubbing. No peripheral edema. LOWER EXTREMITIES: 2+ pulses, warm, well-perfused. No calf tenderness. No peripheral edema. NEUROLOGICAL: Cranial nerves II-XII intact. Normal speech. 5/5 muscle strength upper and lower ext. PSYCHIATRIC: Cooperative. Good eye contact. Appropriate mood and affect. SKIN: Warm, dry, normal turgor, no rashes or lesions noted, normal capillary refill. CBCD WBC 11.1 K/mm3 (4.0-10.0) H 05/25/18 08:10 RBC 4.33 M/mm3 (4.00-5.60) 05/25/18 08:10 Hgb 13.1 GM/dL (11.7-16.9) 05/25/18 08:10 Hct 38.9 % (35.4-49) 05/25/18 08:10 MCV 89.8 fl (80-96) 05/25/18 08:10 MCHC 33.6 g/dl (32.0-35.9) 05/25/18 08:10 RDW 14.3 % (11.9-15.9) 05/25/18 08:10 Plt Count 192 K/MM3 (134-434) 05/25/18 08:10 MPV 7.4 fl (7.5-11.1) L 05/25/18 08:10 CMP Sodium 140 mmol/L (136-145) 05/25/18 05:30 Potassium 4.2 mmol/L (3.5-5.1) 05/25/18 05:30 Chloride 104 mmol/L (98-107) 05/25/18 05:30 Carbon Dioxide 28 mmol/L (21-32) 05/25/18 05:30 Anion Gap 8 MMOL/L (8-16) 05/25/18 05:30 BUN 25 mg/dL (7-18) H 05/25/18 05:30 Creatinine 1.3 mg/dL (0.55-1.3) 05/25/18 05:30 Creat Clearance w eGFR 52.72 (>60) 05/25/18 05:30 Random Glucose 108 mg/dL (74-106) H 05/25/18 05:30 Calcium 8.1 mg/dL (8.5-10.1) L 05/25/18 05:30 Total Bilirubin 0.3 mg/dL (0.2-1) 05/25/18 05:30 AST 17 U/L (15-37) 05/25/18 05:30 ALT 15 U/L (13-61) 05/25/18 05:30 Alkaline Phosphatase 62 U/L (45-117) 05/25/18 05:30 Total Protein 6.2 g/dl (6.4-8.2) L 05/25/18 05:30 Albumin 3.0 g/dl (3.4-5.0) L 05/25/18 05:30 CARDIAC ENZYMES Creatine Kinase 95 IU/L (26-308) 05/23/18 14:33 Troponin I 0.02 ng/ml (0.00-0.05) 05/23/18 14:33 IMAGING: CT head MRI brain reviewed ASSESSMENT/PLAN: Plan 83 yo M with PMHx of HLD and BCC who was sent by PCP for newly found hemorrhagic brain mass. As per notes, patient daughter reported steady decline in cognition over the past 3 months with increased confusion. 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 Patient admitted for ICU and getting critical care monitoring. NSGY noted reviewed, completed R craniotomy 05/24 per operative notes, follow up CT reviewed, partial R temporal mass with persistent mass effect. Spoke with ICU resident, decadron had been discontinued but should be restarted with ongoing mass effect and edema. Patient awake, alert, knows he' s at [facility], can provide name of President (not Studio Producer), knows it's April but states 1918 and 1908, informed it's 2018. Will need frequent reorientation. Continued tight blood pressure control, avoid head trauma. Hold antiplatelet medications. Continue Keppra. Repeat CT in 24-48hrs to re-eval. Critical care time 40 mins.
[2018-05-25] MEDS ORDERED: TAMSULOSIN HCL 0.4 MG CAP PO SCH (09:00)
--- NOTE | 2018-05-25 09:24 | PN ---
Progress Note (short form) - Note Progress Note: POD 1 Pt seen and examined. Sitting up in chair with clears tray. States he is feeling very well this AM, "ready for a green party". Reports no issues overnight. East removed this AM. Denies cp/sob, n/v/d, calf pain or edema, motor/sensory deficits, difficulty speaking. Vital Signs Temp 98 F 05/25/18 02:00 Pulse 60 05/25/18 06:00 Resp 15 05/25/18 06:00 BP 142/69 05/25/18 06:00 Pulse Ox 100 05/24/18 21:00 Intake & Output 05/24/18 05/24/18 05/25/18 11:59 23:59 11:59 Intake Total 834 150 Output Total 400 225 500 Balance -400 609 -350 Intake: IV 784 0 Normal Saline - 1,000 ml 84 0 @ 42 mls/hr IV ASDIR STORMY Rx#:[id number] IVPB 50 50 Oral 100 Output: Urine 400 200 500 East 100 500 Void 400 Estimated Blood Loss 25 Other: Voiding Method Urinal Indwelling Catheter # Unmeasured Voids Void 1 Bowel Movement No CBC, BMP 05/25/18 08:10 05/25/18 05:30 Gen: awake, alert, nad, sitting in chair with clears tray Head: head wrap removed due to headache per pt, telfa/teagderm intact with minimal serosanguinous drainage noted. Resp: cta b/l CV: rrr, s1s2 Neuro: Speech comprehensible, speaking in full sentences without any difficulty. No facial droop noted, tongue protrudes midline. B/L ue's operations/dispatch strength intact, biceps/triceps/deltoids 5/5 b/l, silt b/l. B/L le's dorsiflexion/plantar flexion, knee flexion/extension 5/5, silt b/l. A/P: 83 y/o M with PMHx HLD and BCC who was sent by PCP for newly found hemorrhagic brain mass during examination for cognitive decline, now s/p R parietal craniotomy/excision of brain lesion. Exam stable. VSS and labs stable. Pt doing well. TOV for 8AM Continue Keppra 500bid Steroid taper per ICU team Incentive spirometry encouraged OOB with assistance, PT VS per routine Neurovascular checks DVT prophylaxis with b/l scds, no chemical prophylaxis Advance diet as tolerated Continue IVF until tolerating PO above d/c attending Dr Ochoa, pt may be transferred to the floor this afternoon-ICU resident aware
[2018-05-25] MEDS ORDERED: PATIENT'S OWN MEDICATION (NON-FORMULARY) (Olmesartan Medoxomil 20 MG) PO SCH (10:00)
[2018-05-25] MEDS: levETIRAcetam 500 MG/5 ML INJECTION VIAL IVPB SCH (10:36)
[2018-05-25] MEDS: PANTOPRAZOLE 40 MG TABLET (FP) PO SCH (10:36)
[2018-05-25] MEDS: MUPIROCIN 2% TOPICAL OINTMENT FOR DECOLONIZATION NS SCH (10:37)
[2018-05-25] MEDS ORDERED: PNEUMOC 13-VAL CONJ-DIP CRM/PF 0.5 ML DISP.SYRIN IM ONE (11:32)
--- NOTE | 2018-05-25 12:14 | PN ---
Physical Exam: SUBJECTIVE: Patient seen and examined at bedside. POD 1, no complications. biopsy pending. overnight complaining of headache in the area of the dressing and reports the dressing is extremely tight. Dr. Ochoa was contacted and agrees with removing the dressing. Also fluid and steroids were dcd. a little hypertensive, received hydralazine. denies cp, sob. Dr Ochoa came this morning and is ok w/ pt going home OBJECTIVE: Vital Signs Period Temp Pulse Resp BP Sys/Pendleton Pulse Ox Last 24 Hr 97.4 F-98.9 F 60-104 14-24 96-155/54-94 95-100 GENERAL: AOX3 NAD HEAD: bandages on R posterior side, clean and dry EYES: Pupils equal, round and reactive to light, extraocular movements intact, sclera anicteric, conjunctiva clear. No lid lag. EARS, NOSE, THROAT: Ears normal, nares patent, oropharynx clear without exudates. MMM NECK: Normal range of motion, supple without lymphadenopathy, JVD, or masses. LUNGS: CTAB. No wheezes, and no crackles. No accessory muscle use. HEART: RRR, normal S1 and S2 without murmur, rub or gallop. ABDOMEN: Soft, NTND, normoactive bowel sounds, no guarding, no rebound, no masses. MUSCULOSKELETAL: Normal range of motion at all joints. UPPER EXTREMITIES: 2+ pulses, warm, well-perfused. No cyanosis. LOWER EXTREMITIES: 2+ pulses, warm, well-perfused. NEUROLOGICAL: Cranial nerves II-XII intact. Normal speech. power in b/l upper and lower limb 5/5, sensation to touch intact b/l upper and lower limb. PSYCHIATRIC: Cooperative. Good eye contact. Appropriate mood and affect. SKIN: Warm, dry, Laboratory Results - last 24 hr 05/24/18 05/24/18 05/25/18 17:00 17:00 05:30 WBC 9.6 RBC 4.03 Hgb 12.5 Hct 36.8 MCV 91.3 MCH 30.9 MCHC 33.9 RDW 14.5 Plt Count 193 MPV 7.6 Absolute Neuts (auto) 8.4 H Neutrophils % 87.1 H Lymphocytes % 6.1 L D Monocytes % 6.7 D Eosinophils % 0.0 D Basophils % 0.1 Nucleated RBC % 0 Sodium 143 140 Potassium 4.0 4.2 Chloride 104 104 Carbon Dioxide 26 28 Anion Gap 13 8 BUN 21 H 25 H Creatinine 1.4 H 1.3 Creat Clearance w eGFR 48.40 52.72 Random Glucose 125 H 108 H Calcium 8.2 L 8.1 L Phosphorus 4.8 Magnesium 1.9 2.1 Total Bilirubin 0.3 AST 17 ALT 15 Alkaline Phosphatase 62 Total Protein 6.2 L Albumin 3.0 L 05/25/18 08:10 WBC 11.1 H RBC 4.33 Hgb 13.1 Hct 38.9 MCV 89.8 MCH 30.2 MCHC 33.6 RDW 14.3 Plt Count 192 MPV 7.4 L Absolute Neuts (auto) 8.6 H Neutrophils % 77.6 Lymphocytes % 13.9 D Monocytes % 8.1 Eosinophils % 0.1 D Basophils % 0.3 Nucleated RBC % 0 Sodium Potassium Chloride Carbon Dioxide Anion Gap BUN Creatinine Creat Clearance w eGFR Random Glucose Calcium Phosphorus Magnesium Total Bilirubin AST ALT Alkaline Phosphatase Total Protein Albumin Active Medications Generic Name Dose Route Start Last Admin Trade Name Freq PRN Reason Stop Dose Admin Acetaminophen 1,000 mg 05/24/18 17:00 05/24/18 18:44 Ofirmev Injection - IVPB 1,000 mg Q6H PRN Administration FEVER Atorvastatin Calcium 10 mg 05/25/18 22:00 Lipitor - PO HS [facility] Chlorhexidine Gluconate 1 applic 05/24/18 22:00 05/24/18 22:00 Hibiclens For Decolonization - TP 1 applic HS [facility] Administration Levetiracetam 500 mg 05/24/18 10:00 05/25/18 10:36 Keppra Injection - IVPB 500 mg BID [facility] Administration Mupirocin 1 applic 05/24/18 10:00 05/25/18 10:37 Bactroban Ointment (For Decolonization) - NS 05/29/18 09:59 1 applic BID [facility] Administration Pantoprazole Sodium 40 mg 05/23/18 22:00 05/25/18 10:36 Protonix - PO 40 mg DAILY [facility] Administration Pneumococcal 13-Valent Conj Vacc 0.5 ml 05/25/18 11:32 Prevnar 13 Syringe - IM 05/25/18 11:33 .ONCE ONE Tamsulosin HCl 0.4 mg 05/25/18 09:00 05/25/18 10:36 Flomax - PO 0.4 mg DAILY@0830 [facility] Administration Valsartan 160 mg 05/26/18 10:00 Diovan - PO DAILY [facility] ASSESSMENT/PLAN: 83 year old with past medical history of HLD, htn and basal cell carcinoma who presents with newly found necrotic brain mass found, POD1 for s/p crani for mass biopsy/resection 1) Brain mass POD 1, s/p crani for mass biopsy/resection, biopsy pending. Dr Ochoa came this morning and is ok w/ pt going home and will f/u outpt. rpt CT showed no complications of surgery CT- R temporal lobe mass or bilobed heterogenous in attenuation necrotic mass with significant right cerebral vasogenic edema. 3.6x 4.4x4.8 cm -got 10mg of dexamethasone in ED -got keppra 500mg in ED for prophylaxis. -Keep head end elevated. -neurosurgery and neurology on case. -MRI: A solitary lobulated 5 x 4.4 x 4 cm heterogeneously enhancing partially hemorrhagic right temporal lobe mass lesion is seen - ? high-grade glioma. There is prominent perilesional edema with moderate contralateral midline displacement. Associated mild obstructive dilatation of the left lateral ventricle is noted. -CT chest, abdomen and pelvis shows no discrete evidence of mass lesion -dexaethasone 4mg q6h standing for edema -Keppra 500mg BID for prophylaxis. -frequent neuro exam. -cardiac monitoring. -dc IV fluid. dc steroids -Keep SBP below 140 HTN -olmesartan -monitor -received hydral overnight for episode of HTN 140s, now ctl 110s-120s HLD -simvastatin 20mg Fluid: 0rally allowed. no IV fluid . electrolytes: reviewed nutrition: soft diet DVT pro: scd GI pro: protonix pneumonia vaccine PT eval Dispo: - POD 1, no complications. biopsy pending. Dr Ochoa came this morning and is ok w/ pt going home and will f/u outpt. We will sign off. Discharge per primary team. Thank you for this consultative opportunity Visit type - Emergency Visit Emergency Visit: Yes ED Registration Date: 05/23/18 Care time: The patient presented to the Emergency Department on the above date and was hospitalized for further evaluation of their emergent condition. - New Patient This patient is new to me today: Yes Date on this admission: 05/25/18 - Critical Care Critical Care patient: Yes Total Critical Care Time (in minutes): 40 Critical Care Statement: The care of this patient involved high complexity decision making to prevent further life threatening deterioration of the patient 's condition and/or to evaluate & treat vital organ system(s) failure or risk of failure.
--- NOTE | 2018-05-25 12:17 | PN ---
Teaching Attending Note Name of Resident: Eduardo Ledezma ATTENDING PHYSICIAN STATEMENT I saw and evaluated the patient. I reviewed the resident's note and discussed the case with the resident. I agree with the resident's findings and plan as documented. SUBJECTIVE: Patient seen and examined in the ICU. Awake and alert. Denies CP or SOB. No CISNEROS or dizziness. Intake & Output 05/22/18 05/23/18 05/24/18 05/25/18 23:59 23:59 23:59 23:59 Intake Total 834 150 Output Total 625 500 Balance 209 -350 Weight 204 lb 9 oz Last Vital Signs Temp Pulse Resp BP Pulse Ox 98.6 F 91 H 20 96/64 100 05/25/18 08:00 05/25/18 10:25 05/25/18 10:25 05/25/18 10:25 05/25/18 09:00 Active Medications Acetaminophen (Ofirmev Injection -) 1,000 mg IVPB Q6H PRN PRN Reason: FEVER Last Admin: 05/24/18 18:44 Dose: 1,000 mg Atorvastatin Calcium (Lipitor -) 10 mg PO HS [facility] Chlorhexidine Gluconate (Hibiclens For Decolonization -) 1 applic TP HS [facility] Last Admin: 05/24/18 22:00 Dose: 1 applic Levetiracetam (Keppra Injection -) 500 mg IVPB BID [facility] Last Admin: 05/25/18 10:36 Dose: 500 mg Mupirocin (Bactroban Ointment (For Decolonization) -) 1 applic NS BID [facility] Stop: 05/29/18 09:59 Last Admin: 05/25/18 10:37 Dose: 1 applic Pantoprazole Sodium (Protonix -) 40 mg PO DAILY [facility] Last Admin: 05/25/18 10:36 Dose: 40 mg Pneumococcal 13-Valent Conj Vacc (Prevnar 13 Syringe -) 0.5 ml IM .ONCE ONE Stop: 05/25/18 11:33 Tamsulosin HCl (Flomax -) 0.4 mg PO DAILY@0830 [facility] Last Admin: 05/25/18 10:36 Dose: 0.4 mg Valsartan (Diovan -) 160 mg PO DAILY [facility] GENERAL: Awake, alert, and fully oriented, in no acute distress. HEAD: Dressing intact EYES: sclera anicteric, conjunctiva clear. No lid lag. EARS, NOSE, THROAT: Ears normal, nares patent, oropharynx clear without exudates. Moist mucous membranes. NECK: Normal range of motion, supple without lymphadenopathy, JVD, or masses. LUNGS: Clear. No wheezes, and no crackles. No accessory muscle use. HEART: Regular rate and rhythm, normal S1 and S2 without murmur, rub or gallop. ABDOMEN: Soft, nontender, not distended, normoactive bowel sounds, no guarding, no rebound, no masses. MUSCULOSKELETAL: Normal range of motion at all joints. No CVA tenderness. UPPER EXTREMITIES: 2+ pulses, warm, well-perfused. No cyanosis. LOWER EXTREMITIES: 2+ pulses, warm, well-perfused. NEUROLOGICAL: Non-focal. PSYCHIATRIC: Cooperative. Good eye contact. Appropriate mood and affect. SKIN: Warm, dry ASSESSMENT/PLAN: POD #1: Debulking Right temporal lobe mass with components of necrosis and cerebral vasogenic edema. 3.6x 4.4x 4.8 cm HTN HPL Keppra Follow Neuro exam No Decadron per Neurosurgery D/C planning per Neurosurgery Dr Mtz
--- NOTE | 2018-05-25 13:26 | DS ---
Physical Exam: SUBJECTIVE: Patient seen and examined. Pt. became hypertensive overnight and was given 10mg Hydralazine to good effect. OBJECTIVE: Vital Signs Period Temp Pulse Resp BP Sys/Pendleton Pulse Ox Last 24 Hr 97.4 F-98.9 F 60-104 14-24 96-155/54-94 95-100 PHYSICAL EXAM GENERAL: The patient is awake, alert, and fully oriented, in no acute distress. EYES: PERRL, extraocular movements intact, sclera anicteric, conjunctiva clear, all visual banegas in tact. ENT: Ears normal, nares patent, oropharynx clear without exudates, moist mucous membranes. LUNGS: Breath sounds equal, clear to auscultation bilaterally, no wheezes, no crackles, no accessory muscle use. HEART: Regular rate and rhythm, S1, S2 without murmur, rub or gallop. ABDOMEN: Soft, nontender, nondistended, normoactive bowel sounds, no guarding, no rebound EXTREMITIES: 2+ dorsal pedal pulses, warm, well-perfused, no calf tenderness, no edema. NEUROLOGICAL: Cranial nerves II through XII grossly intact. Normal speech, gait not observed. PSYCH: Normal mood, normal affect. SKIN: Warm, dry, normal turgor LABS Laboratory Results - last 24 hr 05/24/18 05/24/18 05/25/18 17:00 17:00 05:30 WBC 9.6 RBC 4.03 Hgb 12.5 Hct 36.8 MCV 91.3 MCH 30.9 MCHC 33.9 RDW 14.5 Plt Count 193 MPV 7.6 Absolute Neuts (auto) 8.4 H Neutrophils % 87.1 H Lymphocytes % 6.1 L D Monocytes % 6.7 D Eosinophils % 0.0 D Basophils % 0.1 Nucleated RBC % 0 Sodium 143 140 Potassium 4.0 4.2 Chloride 104 104 Carbon Dioxide 26 28 Anion Gap 13 8 BUN 21 H 25 H Creatinine 1.4 H 1.3 Creat Clearance w eGFR 48.40 52.72 Random Glucose 125 H 108 H Calcium 8.2 L 8.1 L Phosphorus 4.8 Magnesium 1.9 2.1 Total Bilirubin 0.3 AST 17 ALT 15 Alkaline Phosphatase 62 Total Protein 6.2 L Albumin 3.0 L 05/25/18 08:10 WBC 11.1 H RBC 4.33 Hgb 13.1 Hct 38.9 MCV 89.8 MCH 30.2 MCHC 33.6 RDW 14.3 Plt Count 192 MPV 7.4 L Absolute Neuts (auto) 8.6 H Neutrophils % 77.6 Lymphocytes % 13.9 D Monocytes % 8.1 Eosinophils % 0.1 D Basophils % 0.3 Nucleated RBC % 0 Sodium Potassium Chloride Carbon Dioxide Anion Gap BUN Creatinine Creat Clearance w eGFR Random Glucose Calcium Phosphorus Magnesium Total Bilirubin AST ALT Alkaline Phosphatase Total Protein Albumin HOSPITAL COURSE: Date of Admission:05/23/18 Date of Discharge: 05/25/18 An 83 y.o. M w/ PMHx of HLD, HLD, HTN and basal cell carcinoma s/p resection ~ 20 years ago(never on Chemo/radiation), presented with 2 months of worsening episodes of confusion and disorientation. You had a CT scan of the Brain showing a 5x4.4x4 cm hetergenously enhancing, partially hemorrhagic mass with perilesional edema and midline shift indicating Acute Hemorrhagic/Necrotizng encephalopathy. A craniotomy was performed, the mass was removed and repeat imaging showed continued extensive nani-lesional edema with mass effect causing a 0.8cm midline shift. Pt. was started on Keppra as seizure prophylaxis and instructed to avoid NSAIDs, and diuretics. Pt. hospital course was discussed with and agreed upon with Pt. Neurology, Neurosurgical, Primary care, Oncology and radiation oncological consults were all appreciated and referred to for out- patient post-op follow-up. Minutes to complete discharge: 34 Discharge Summary Reason For Visit: CONFUSION Current Active Problems Confusion (Acute) Intracranial mass (Acute) Vasogenic cerebral edema (Acute) Condition: Improved - Instructions Diet, Activity, Other Instructions: You were admitted for confusion You had an operation on your brain to remove a mass and biopsy. We started you on a new medication to prevent seizures. Please take this medication, Keppra (Levetiracetam) 500mg Twice a day. ( one in the morning and one in the evening, ideally 12 hours apart) We have changed one of you "High-Blood pressure" (Hypertension) medications. Please take as prescribed Please STOP taking the Olmesartan-HCTZ 40/12.5 mg pill. Use just Olmesartan 40mg po daily. Please drink enough Water daily. We have started you on Olmesartan 40mg Daily. Please take this medication as prescribed. Keep your surgical incision clean, dry and your dressing intact until your follow up appointment. Do not wet the dressing or wash your hair until cleared by your surgeon. Call the office at any time with questions/concerns. You should have someone (an adult over the age of 18) with you at all times until otherwise instructed by your surgeon. Do not drive until cleared by your surgeon. Call your surgeons office immediately or report to the ED if you experience: A temperature of 101 degrees or higher. Chills with shivering Worsening headaches or neck stiffness Confusion or changes in behavior Persistent vomiting. Inability to keep down food or fluids. Increasing redness, swelling, and drainage of blood or fluid from an incision site. Inability to urinate or have a bowel movement. Increasing drowsiness Seizures Please follow up with your Primary Care Physician in 1 week---For complete management of your care Please follow up with your Neurologist within 1 week Please follow up with your Neurosurgeon, Dr Jin Mueller within 1 week Please follow up with your Beauty Consultant/Oncologist, Dr. Farley within 1 week for further care and discuss the biopsy results of the brain mass Please follow up with your Radiologist Dr. Hartley within 2 week---For radiation therapy Please avoid all NSAIDs(Ibuprofen, Advil, Motrin ,Aspirin etc.) Please return to the ER if you experience blurry vision, headache that will not go away, chest pain, dizziness, unsteady balance, difficulty speaking, muscle weakness or decreased sensation. Referrals: Jin Ochoa MD, [facility] [Staff Physician] - 1 Week Jayme Ibanez MD [Primary Care Provider] - 1 Week Uli Hartley MD [Staff Physician] - 1 Week Kristian Vila MD [Staff Physician] - 1 Week Chaitanya Farley MD [Staff Physician] - 1 Week Disposition: HOME - Home Medications Comprehensive Discharge Medication List: Ambulatory Orders Olmesartan Medoxomil [Benicar -] 20 mg PO DAILY 06/23/16 Simvastatin 20 mg PO HS 06/23/16 Tamsulosin HCl [Flomax] 0.4 mg PO DAILY 05/23/18 This patient is new to me today: No Emergency Visit: Yes ED Registration Date: 05/23/18 Care time: The patient presented to the Emergency Department on the above date and was hospitalized for further evaluation of their emergent condition. Critical Care patient: Yes Total Critical Care Time (in minutes): 52 Critical Care Statement: The care of this patient involved high complexity decision making to prevent further life threatening deterioration of the patient 's condition and/or to evaluate & treat vital organ system(s) failure or risk of failure. - Discharge Referral Referred to [facility] No
--- NOTE | 2018-05-25 13:40 | PN ---
Teaching Attending Note Name of Resident: Nithin Mckeon ATTENDING PHYSICIAN STATEMENT I saw and evaluated the patient. I reviewed the resident's note and discussed the case with the resident. I agree with the resident's findings and plan as documented. SUBJECTIVE: Patient is comfortable with no acute distress. No fever or chills ,no shortness of breath. denies having any pain. OBJECTIVE: Vital Signs Temperature 98.6 F 05/25/18 08:00 Pulse Rate 91 H 05/25/18 10:25 Respiratory Rate 20 05/25/18 10:25 Blood Pressure 96/64 05/25/18 10:25 O2 Sat by Pulse Oximetry (%) 100 05/25/18 09:00 GENERAL: AOX2 does not know the year NAD HEAD: NCAT ,EYES: Pupils equal, round and reactive to light, extraocular movements intact, sclera anicteric, conjunctiva clear. EARS, NOSE, THROAT: Ears normal, oropharynx clear without exudates. MMM NECK: Normal range of motion, supple without lymphadenopathy, JVD, or masses. LUNGS: CTAB. No wheezes, and no crackles. No accessory muscle use. HEART: RRR, normal S1 and S2 without murmur, rub or gallop. ABDOMEN: Soft, NTND, normoactive bowel sounds, no guarding, no rebound, no masses. EXTREMITIES: 2+ pulses, warm, well-perfused. No cyanosis. NEUROLOGICAL: Cranial nerves II-XII intact. Normal speech. wound is clean s/p right parietal craniotomy PSYCHIATRIC: Cooperative. Good eye contact. Appropriate mood and affect. SKIN: Warm, dry. CBCD WBC 11.1 K/mm3 (4.0-10.0) H 05/25/18 08:10 RBC 4.33 M/mm3 (4.00-5.60) 05/25/18 08:10 Hgb 13.1 GM/dL (11.7-16.9) 05/25/18 08:10 Hct 38.9 % (35.4-49) 05/25/18 08:10 MCV 89.8 fl (80-96) 05/25/18 08:10 MCHC 33.6 g/dl (32.0-35.9) 05/25/18 08:10 RDW 14.3 % (11.9-15.9) 05/25/18 08:10 Plt Count 192 K/MM3 (134-434) 05/25/18 08:10 MPV 7.4 fl (7.5-11.1) L 05/25/18 08:10 CMP Sodium 140 mmol/L (136-145) 05/25/18 05:30 Potassium 4.2 mmol/L (3.5-5.1) 05/25/18 05:30 Chloride 104 mmol/L (98-107) 05/25/18 05:30 Carbon Dioxide 28 mmol/L (21-32) 05/25/18 05:30 Anion Gap 8 MMOL/L (8-16) 05/25/18 05:30 BUN 25 mg/dL (7-18) H 05/25/18 05:30 Creatinine 1.3 mg/dL (0.55-1.3) 05/25/18 05:30 Creat Clearance w eGFR 52.72 (>60) 05/25/18 05:30 Random Glucose 108 mg/dL (74-106) H 05/25/18 05:30 Calcium 8.1 mg/dL (8.5-10.1) L 05/25/18 05:30 Total Bilirubin 0.3 mg/dL (0.2-1) 05/25/18 05:30 AST 17 U/L (15-37) 05/25/18 05:30 ALT 15 U/L (13-61) 05/25/18 05:30 Alkaline Phosphatase 62 U/L (45-117) 05/25/18 05:30 Total Protein 6.2 g/dl (6.4-8.2) L 05/25/18 05:30 Albumin 3.0 g/dl (3.4-5.0) L 05/25/18 05:30 CARDIAC ENZYMES Creatine Kinase 95 IU/L (26-308) 05/23/18 14:33 Troponin I 0.02 ng/ml (0.00-0.05) 05/23/18 14:33 Current Medications Generic Name Dose Route Start Last Admin Trade Name Freq PRN Reason Stop Dose Admin Acetaminophen 1,000 mg 05/24/18 17:00 05/24/18 18:44 Ofirmev Injection - IVPB 1,000 mg Q6H PRN Administration FEVER Atorvastatin Calcium 10 mg 05/25/18 22:00 Lipitor - PO HS [facility] Chlorhexidine Gluconate 1 applic 05/24/18 22:00 05/24/18 22:00 Hibiclens For Decolonization - TP 1 applic HS [facility] Administration Levetiracetam 500 mg 05/24/18 10:00 05/25/18 10:36 Keppra Injection - IVPB 500 mg BID [facility] Administration Mupirocin 1 applic 05/24/18 10:00 05/25/18 10:37 Bactroban Ointment (For Decolonization) - NS 05/29/18 09:59 1 applic BID [facility] Administration Pantoprazole Sodium 40 mg 05/23/18 22:00 05/25/18 10:36 Protonix - PO 40 mg DAILY [facility] Administration Tamsulosin HCl 0.4 mg 05/25/18 09:00 05/25/18 10:36 Flomax - PO 0.4 mg DAILY@0830 [facility] Administration Valsartan 160 mg 05/26/18 10:00 Diovan - PO DAILY [facility] Home Medications Medication Instructions Recorded Olmesartan Medoxomil [Benicar -] 20 mg PO DAILY 06/23/16 Simvastatin 20 mg PO HS 06/23/16 Tamsulosin HCl [Flomax] 0.4 mg PO DAILY 05/23/18 CT head from 05/23 results and images reviewed ASSESSMENT AND PLAN: Patient is a 83 yo male with PMHx of HTN, HLD, basal cell carcinoma s/p excision , admitted with new right temporal lobe necrotic mass with vasogenic edema # POD #1 for R parietal craniotomy, excision of brain mass by , neurosx on the case, as per Neurosurgery , patient can be discharged home on Keppra , No decadron. follow with Neurosx within a week. airborne sensor specialist, Rn Iv Therapy for follow up. #HTN BP controlled ,will continue Diovan, and discontinue HCTZ that the patient takes at home. #HLD continue Zocor #Hx of Basal Cell carcinoma s/p excision discussed with the neurosurgical team , patient can be discharged home. Patient did walk, stable on his feet.
[2018-05-25 13:51] VITALS: TEMP 98.4
[2018-05-25 13:57] VITALS: PULSE 76
[2018-05-25 14:46] VITALS: BP 130/72
--- NOTE | 2018-05-25 15:51 | PN ---
Progress Note (short form) - Note Progress Note: Patient seen and examined at bedside s/p R parietal craniotomy, excision of brain mass POD # 1 Feels well ambulated with PT Vital Signs Temperature 98.4 F 05/25/18 14:00 Pulse Rate 76 05/25/18 14:00 Respiratory Rate 20 05/25/18 14:00 Blood Pressure 130/72 05/25/18 14:00 O2 Sat by Pulse Oximetry (%) 100 05/25/18 09:00 PE: NAD lying in bed PERRL EOMI CN 2-12 intact CTAB RRR S1 S2 able to move all extremities 05/24/18 05/24/18 05/25/18 17:00 17:00 05:30 WBC 9.6 RBC 4.03 Hgb 12.5 Hct 36.8 MCV 91.3 MCHC 33.9 RDW 14.5 Plt Count 193 Neutrophils % 87.1 H Lymphocytes % 6.1 L D Monocytes % 6.7 D Eosinophils % 0.0 D Basophils % 0.1 Sodium 143 140 Potassium 4.0 4.2 Chloride 104 104 Carbon Dioxide 26 28 Anion Gap 13 8 BUN 21 H 25 H Creatinine 1.4 H 1.3 05/25/18 08:10 WBC 11.1 H RBC 4.33 Hgb 13.1 Hct 38.9 MCV 89.8 MCHC 33.6 RDW 14.3 Plt Count 192 Neutrophils % 77.6 Lymphocytes % 13.9 D Monocytes % 8.1 Eosinophils % 0.1 D Basophils % 0.3 Sodium Potassium Chloride Carbon Dioxide Anion Gap BUN Creatinine 05/23/18 15:21 Urine Culture - Final Urine - Urine Clean Catch NO GROWTH OBTAINED 05/24/18 15:30 Gram Stain - Final Head Wound Culture - Pending A/P 82M with history of HTN found to have a brain mass s/p excision of brain mass POD #1 Problem List: HTN Brain mass HLD BPH History of basal cell carcinoma s/p right parietal craniotomy and excision of brain mass Plan: Patient will be discharged by medical team and cleared by neurosurgery patient given information for follow up with oncology and radiation oncology f/u pathology as outpatient avoid aspirin NSAIDs and anticoagulant Thank you for this consultative opportunity
[2018-05-25] MEDS ORDERED: levETIRAcetam 500 MG TABLET (FP) PO SCH (22:00)
[2018-05-25] MEDS ORDERED: ATORVASTATIN CA 10 MG TABLET (FP) PO SCH (22:00)
[2018-05-26] MEDS ORDERED: VALSARTAN 160 MG TABLET (UD) PO SCH (10:00)
--- NOTE | 2018-06-02 10:49 | PATH ---
Surgical Pathology Report Patient Name: ANASTACIO MORENO [facility]. Rec. 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 Specimen(s) Received A: RIGHT POSTERIOR TEMPORAL ENHANCING BRAIN MASS B: RIGHT POSTERIAL TEMPORAL ENHANCING BRAIN MASS Clinical History Right temporal brain mass Intraoperative Consult Diagnosis Right posterior temporal brain mass (FS): Brain tissue with recent hemorrhage. A hypercellular area within hemorrhage is seen, this could represent a reactive process however a low-grade astrocytic neoplasm cannot be completely ruled out. Defer to permanent sections. Dr. Xiong 05/24/18. Final Diagnosis A. BRAIN, RIGHT, POSTERIOR TEMPORAL, MASS, BIOPSY (FS): MALFORMATIVE VASCULAR PROLIFERATION. SEE COMMENT. B. BRAIN, RIGHT, POSTERIOR TEMPORAL, MASS, RESECTION: MALFORMATIVE VASCULAR PROLIFERATION. SEE COMMENT. Comment: Histologic sections show a vascular proliferation partially obscured by hemorrhage. This lesion is positive for CD34 immunohistochemical stain; comprised of large vascular channels by fibrous bands and lined by flattened endothelium. Different stages of hemorrhage, organization, and fibrosis are present. Surrounding brain parenchyma highlighted by GFAP and S100 show reactive changes/gliosis. Cytokeratin AE1/3 is negative. No necrosis present. No carcinoma or melanoma identified. 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 Suggest clinical and radiologic correlation. P53, Ki-67 and PAS stains were utilized to evaluate this case. Immunohistochemical and special stains performed at [facility], [place], [place] ([id number] and [id number]) and interpreted at [facility]. Case seen interdepartmentally. Findings discussed with Dr. Calix. Electronically Signed Becky Nevarez M.D. Addendum Reported: 06/07/2018 Addendum Diagnosis Congo Red-1 (B31) Amyloid Stain performed and interpreted at [facility] in [place], [place] ([id number]) shows the following result: Result: Negative Becky Nevarez M.D. Gross Description A. Received fresh labeled "right posterior temporal enhancing brain mass" for immediate intraoperative consultation are multiple fragments of pink-williamson hemorrhagic brain tissue measuring 1.2 x 0.9 x 0.3 cm. Touch preparation was performed. The entire specimen is submitted for frozen section analysis in one cassette: FS1. B. Received in formalin labeled "right posterior temporal enhancing brain mass," is a 3.0 x 2.6 x 1.3 cm red-brown, hemorrhagic mass with attached williamson soft tissue, consistent with brain tissue. Sectioning reveals a red-brown, hemorrhagic parenchyma. The specimen is serially sectioned, entirely and sequentially submitted in 8 cassettes. MLSZ/05/24/2018 [place]/05/24/2018
== END 2018-05-25 17:23 | disposition home or self-care (01) | DRG 23 ==
LOC: JER 13:29 → JERBED 16:04 → JICU 05-24 03:33
PROVIDERS: ADMIT Hospitalist; ATTEND Internal Medicine
PROC: 00B70ZX Excision of Cerebral Hemisphere, Open Approach, Diagnostic (ICD-10-PCS; 2018-05-24)
PROC: 00N00ZZ Release Brain, Open Approach (ICD-10-PCS; principal; 2018-05-24 11:15)
DX: I61.9 Nontraumatic intracerebral hemorrhage, unspecified (principal); G93.6 Cerebral edema; G04.39 Other acute necrotizing hemorrhagic encephalopathy; C71.2 Malignant neoplasm of temporal lobe; E78.5 Hyperlipidemia, unspecified; I10 Essential (primary) hypertension; N40.0 Benign prostatic hyperplasia without lower urinary tract symptoms
CPT/HCPCS: 36415; 70450-TC; 70553-TC; 71046-TC-FY; 71260-TC; 74177-TC; 80048; 80053; 81003; 82550; 82962; 83735; 84100; 84484; 85025; 85610; 85730; 86850; 86900; 86901; 87070; 87086; 87205; 88307-TC; 88331-TC; 90670; 93005; 93010; 94010; 97116-GP; 97161-GP; 99284-25; J0131; J1100; J7030

== ENCOUNTER 2018-05-26 13:14 | Inpatient (IN) | payer OTHER, BC ==
--- NOTE | 2018-05-26 13:36 | PDOC ---
History of Present Illness - General Chief Complaint: Lethargy Stated Complaint: WEAKNESS Time Seen by Provider: 05/26/18 13:36 - History of Present Illness Initial Comments: 05/26/18 14:13 83 year old with past medical history of HLD and basal cell carcinoma who presents with necrotic brain mass found by PCP after 2 months of reported episodes of confusion and disorientation. The patient underwent brain surgery on 05/24/18 The patient was discharged yesterday at 1700 after R parietal craniotomy, excision of brain mass on 05/24/18. The patient was able to eat drink and ambulate while in the hospital post operatively. When patient came home he became weaker, has not eaten or drank much, had urinary continence and has become too weak to walk. Patient lethargic. First temp the pt had recorded was 100.2 at this ED> Past History - Past Medical History Allergies/Adverse Reactions: Allergies Allergy/AdvReac Type Severity Reaction Status Date / Time No Known Allergies Allergy Verified 06/23/16 19:33 Home Medications: Ambulatory Orders Simvastatin 20 mg PO HS 06/23/16 Tamsulosin HCl [Flomax] 0.4 mg PO DAILY 05/23/18 Olmesartan Medoxomil 40 mg PO DAILY #30 tablet 05/25/18 levETIRAcetam [Keppra -] 500 mg PO BID #60 tablet 05/25/18 Bisacodyl [Laxative] 5 mg PO ASDIR 05/26/18 COPD: No HTN: Yes Hypercholesterolemia: Yes - Immunization History Immunization Up to Date: Yes - Suicide/Smoking/Psychosocial Hx Smoking History: Former smoker Have you smoked in the past 12 months: No Information on smoking cessation initiated: No Hx Alcohol Use: No Drug/Substance Use Hx: No Substance Use Type: None Hx Substance Use Treatment: No *Physical Exam - Vital Signs Last Vital Signs Temp Pulse Resp BP Pulse Ox 100.2 F H 96 H 26 H 163/88 96 05/26/18 13:31 05/26/18 13:31 05/26/18 13:31 05/26/18 13:31 05/26/18 13:31 - Physical Exam Comments: 05/26/18 14:52 lethargic appearing AOx3 R side carniatomy merary: clean, dry, intact crackles bilateral with coarse breath sounds in the mid lobes. RRR weak appearing crusting on the eyelashes 05/26/18 15:12 ED Treatment Course - LABORATORY CBC & Chemistry Diagram: 05/26/18 14:38 05/26/18 14:38 Medical Decision Making - Medical Decision Making 05/26/18 15:12 DDX including but not limited to: PNA vs UTI vs wound infection vs brain edema vs steroid d/c W/U: - sepsis TX: - ED Course: Patient lethargic but responsive. AOx3 Don made aware of patient. Recommends holding off on LP while in ED. 05/26/18 15:32 CT head: edematous w/ increased midline shift. Don recommends Decadron 10 units, 4Q6 Plan to admit patient for further evaluation. 05/26/18 16:17 CXR: mildly worsened L atelectasis 05/26/18 16:49 *DC/Admit/Observation/Transfer Diagnosis at time of Disposition: Altered mental status - Discharge Dispostion Disposition: HOME Condition at time of disposition: Stable Decision to Admit order: Yes - Referrals Referrals: Jayme Ibanez MD [Primary Care Provider] - - Patient Instructions - Post Discharge Activity
--- NOTE | 2018-05-26 14:21 | PDOC ---
Attending Attestation - HPI HPI: 05/26/18 15:47 "The patient is a 64-year-old female with past medical history significant for BCC (scalp), HTN, HLD, and newly dx necrotic brain mass (05/23/2018) s/p R parietal craniotomy, excision of brain mass (on 05/24/[address] Ochoa, discharged 05/25/2018) presents to the emergency department with generalized weakness and lethargy. The patient is s/p craniotomy; the patient was able to ambulate post-op prior to discharge. Per daughter, the patient was jolly and ambulatory at discharge. As the patient was leaving the hospital trying to get into the car, patients legs gave out, states his body felt like weight. The daughter reports since bring at home patients been having generalized weakness, been nonambulatory, associated with possible urinary incontinence. Per daughters, the patients wound dressing hasnt been changed since surgery. The patient reports associated concern of a slight headache states that have been present before the surgery and neck stiffness thats crampy in quality. Denies nausea, vomiting, draining from the wound, facial droop, numbness of the lower extremity, changes in vision, diarrhea, constipation. Pt denies any cough , sob, cp, abd pain, back pain, neck pain, dysuria, diarrhea. Allergies: NKA Social history: Former smoker. No past or present use of alcohol or recreational drugs. Surgical history: Scalp lesion removed and craniotomy. PCP: Dr. Ibanez. Neurosurgeon: Dr Ochoa." - Medical Decision Making 05/26/18 15:47 Documentation prepared by Blessing Silverio, acting as medical assistant supervisor for Chaitanya Reyes MD. 05/26/18 15:[address] Ochoa @ 2:[address] Ochoa @ 2:59. <Blessing Silverio - Last Filed: 05/26/18 15:48> - Resident Resident Name: Tiffanie Sims - ED Attending Attestation I have performed the following: I have examined & evaluated the patient, The case was reviewed & discussed with the resident, I agree w/resident's findings & plan, Exceptions are as noted - Physicial Exam PE: 05/26/18 14:54 GENERAL: The patient is slow to answer, alert orineted HEAD: Normocephalic, wound on R scalp is c/d/i with merary in place, no erythema/induration/ttp EYES: extraocular movements intact, sclera anicteric, conjunctiva clear, crusting b/l ENT: Normal voice, Moist mucous membranes. NECK: Normal range of motion, supple LUNGS: rales at bases b/l, no acute respiratory distress HEART: Regular rate and rhythm, normal S1 and S2 without murmur, rub or gallop. ABDOMEN: Soft, nontender, EXTREMITIES: no pitting edema NEUROLOGICAL: No facial assymetry, Normal speech, generally weak, but able to move his arms b/l symmetrically, b/l LE plantar flexion/extension 5/5, hip flexion/extension 3/5, senastaion intact thoughout. PSYCH: Normal mood, normal affect. SKIN: Warm, Dry, normal turgor, - Critical Care Time Total Critical Care Time: 45 Critical Care Statement: The care of this patient involved high complexity decision making to prevent further life threatening deterioration of the patient 's condition and/or to evaluate & treat vital organ system(s) failure or risk of failure. - Medical Decision Making 05/26/18 14:17 83y hx of hl, recent hx of necrontic brain mass, sp resection and cranitectomy on 05/24/2018, was discharged yetserday, decreased eating and was generally weak. with possible urinary incontinence per family. on exam pt is sluggish to answer, but answering questsions appropriately. no lateralizing neuro findings. scalp wound c/d/i. some rales at bases b/l sepsis orderset obtained head ct to r/o intercranial 05/26/18 16:43 temp at 100.2 no leukocytosis case dw neuro recommends steroids due to edema will admti for further management <Chaitanya Reyes - Last Filed: 05/27/18 19:50>
[2018-05-26 14:47] LABS: URINE APPEARANCE CLEAR; URINE BILIRUBIN NEGATIVE (<2.0 mg/dL); URINE COLOR YELLOW; URINE GLUCOSE (UA) NEGATIVE (NEGATIVE); URINE KETONE 1+ (NEGATIVE); URINE LEUK ESTERASE NEGATIVE (NEGATIVE); URINE NITRITE NEGATIVE (NEGATIVE); URINE PROTEIN 1+ (NEGATIVE); URINE UROBILINOGEN NEGATIVE mg/dL (0.2-1.0)
[2018-05-26] MEDS ORDERED: ACETAMINOPHEN 1000 MG/100 ML VIAL (NON FORMULARY) IVPB ONE (14:48)
[2018-05-26] MEDS ORDERED: ACETAMINOPHEN INJECTION 100 ML IVPB ONE (14:51)
[2018-05-26 14:54] LABS: BASO % 0.1 % (0-2.0); EOS % 0.2 % (0-4.5); HEMATOCRIT 33.8 % (35.4-49); HEMOGLOBIN 11.5 GM/dL (11.7-16.9); LYMPH % 11.8 % (8-40); MCH 30.6 pg (25.7-33.7); MCHC 33.9 g/dl (32.0-35.9); MEAN CELL VOLUME 90.2 fl (80-96); MEAN PLT VOLUME 7.4 fl (7.5-11.1); MONO % 10.5 % (3.8-10.2); NEUT % 77.4 % (42.8-82.8); PLATELET COUNT 147 K/MM3 (134-434); RBC 3.74 M/mm3 (4.00-5.60); RDW 14.6 % (11.9-15.9); WHITE BLOOD COUNT 8.6 K/mm3 (4.0-10.0)
[2018-05-26 14:59] LABS: VENOUS PC02 42.1 mmHg (38-52); VENOUS PH 7.42 (7.32-7.42); VENOUS PO2 28.7 mmHg (28-48)
[2018-05-26] MEDS ORDERED: SODIUM CHLORIDE 1,000 ML IV SCH ×2 (15:00→19:00)
[2018-05-26 15:14] LABS: EPI CELLS RARE /HPF (FEW)
[2018-05-26] MEDS ORDERED: DEXAMETHASONE SOD PHOSPHATE 10 MG/1 ML VIAL IVPUSH ONE (15:39)
[2018-05-26 15:43] LABS: INR 1.11 (0.83-1.09); PROTHROMBIN TIME (PATIENT) 13.1 SEC (9.7-13.0)
[2018-05-26 15:44] LABS: ALK PHOS 62 U/L (45-117); ANION GAP 9 MMOL/L (8-16); BILIRUBIN,TOTAL 0.9 mg/dL (0.2-1); BLOOD UREA NITROGEN 25 mg/dL (7-18); CALCIUM 7.9 mg/dL (8.5-10.1); CHLORIDE 104 mmol/L (98-107); CO2 28 mmol/L (21-32); CREATININE 1.2 mg/dL (0.55-1.3); GLUCOSE,RANDOM 96 mg/dL (74-106); POTASSIUM 3.7 mmol/L (3.5-5.1); SGOT/AST 16 U/L (15-37); SGPT/ALT 11 U/L (13-61); SODIUM 141 mmol/L (136-145); TOT PROT 6.4 g/dl (6.4-8.2)
[2018-05-26 15:46] LABS: ACTIVATED PTT 27.6 SECONDS (25.2-36.5)
[2018-05-26] MEDS ORDERED: DEXAMETHASONE SOD PHOSPHATE 10 MG/1 ML VIAL ONE (16:13)
[2018-05-26] MEDS ORDERED: BISACODYL 5 MG TABLET.DR (FP) PO PRN ×2 (17:45→22:50)
--- NOTE | 2018-05-26 18:15 | HP ---
CHIEF COMPLAINT: PCP: HISTORY OF PRESENT ILLNESS: ER course was notable for: (1) (2) (3) Recent Travel: PAST MEDICAL HISTORY: PAST SURGICAL HISTORY: Social History: Smoking: Alcohol: Drugs: Family History: Allergies No Known Allergies Allergy (Verified 06/23/16 19:33) HOME MEDICATIONS: Home Medications Medication Instructions Recorded Simvastatin 20 mg PO HS 06/23/16 Tamsulosin HCl [Flomax] 0.4 mg PO DAILY 05/23/18 Olmesartan Medoxomil 40 mg PO DAILY #30 tablet 05/25/18 levETIRAcetam [Keppra -] 500 mg PO BID #60 tablet 05/25/18 Bisacodyl [Laxative] 5 mg PO ASDIR 05/26/18 REVIEW OF SYSTEMS CONSTITUTIONAL: Absent: fever, chills, diaphoresis, generalized weakness, malaise, loss of appetite, weight change HEENT: Absent: rhinorrhea, nasal congestion, throat pain, throat swelling, difficulty swallowing, mouth swelling, ear pain, eye pain, visual changes CARDIOVASCULAR: Absent: chest pain, syncope, palpitations, irregular heart rate, lightheadedness , peripheral edema RESPIRATORY: Absent: cough, shortness of breath, dyspnea with exertion, orthopnea, wheezing, stridor, hemoptysis GASTROINTESTINAL: Absent: abdominal pain, abdominal distension, nausea, vomiting, diarrhea, constipation, melena, hematochezia GENITOURINARY: Absent: dysuria, frequency, urgency, hesitancy, hematuria, flank pain, genital pain MUSCULOSKELETAL: Absent: myalgia, arthralgia, joint swelling, back pain, neck pain SKIN: Absent: rash, itching, pallor HEMATOLOGIC/IMMUNOLOGIC: Absent: easy bleeding, easy bruising, lymphadenopathy, frequent infections ENDOCRINE: Absent: unexplained weight gain, unexplained weight loss, heat intolerance, cold intolerance NEUROLOGIC: Absent: headache, focal weakness or paresthesias, dizziness, unsteady gait, seizure, mental status changes, bladder or bowel incontinence PSYCHIATRIC: Absent: anxiety, depression, suicidal or homicidal ideation, hallucinations. PHYSICAL EXAMINATION Vital Signs - 24 hr 05/26/18 05/26/18 05/26/18 13:31 13:39 14:46 Temperature 100.2 F H 100.3 F H Pulse Rate 96 H 98 H 103 H Pulse Rate [ 99 H Left Apical] Respiratory 26 H 16 Rate Blood Pressure 163/88 158/94 Blood Pressure 154/94 [Right Arm] O2 Sat by Pulse 96 100 98 Oximetry (%) 05/26/18 05/26/18 15:29 17:05 Temperature 99.6 F Pulse Rate Pulse Rate [ 78 77 Left Apical] Respiratory 16 16 Rate Blood Pressure Blood Pressure 157/78 123/61 [Right Arm] O2 Sat by Pulse 98 99 Oximetry (%) GENERAL: Awake, alert, and fully oriented, in no acute distress. HEAD: Normal with no signs of trauma. EYES: Pupils equal, round and reactive to light, extraocular movements intact, sclera anicteric, conjunctiva clear. No lid lag. EARS, NOSE, THROAT: Ears normal, nares patent, oropharynx clear without exudates. Moist mucous membranes. NECK: Normal range of motion, supple without lymphadenopathy, JVD, or masses. LUNGS: Breath sounds equal, clear to auscultation bilaterally. No wheezes, and no crackles. No accessory muscle use. HEART: Regular rate and rhythm, normal S1 and S2 without murmur, rub or gallop. ABDOMEN: Soft, nontender, not distended, normoactive bowel sounds, no guarding, no rebound, no masses. No hepatomegaly or splenomegaly. MUSCULOSKELETAL: Normal range of motion at all joints. No bony deformities or tenderness. No CVA tenderness. UPPER EXTREMITIES: 2+ pulses, warm, well-perfused. No cyanosis. No clubbing. No peripheral edema. LOWER EXTREMITIES: 2+ pulses, warm, well-perfused. No calf tenderness. No peripheral edema. NEUROLOGICAL: Cranial nerves II-XII intact. Normal speech. Normal gait. PSYCHIATRIC: Cooperative. Good eye contact. Appropriate mood and affect. SKIN: Warm, dry, normal turgor, no rashes or lesions noted, normal capillary refill. Laboratory Results - last 24 hr 05/26/18 05/26/18 05/26/18 13:58 14:38 14:38 WBC 8.6 RBC 3.74 L Hgb 11.5 L Hct 33.8 L MCV 90.2 MCH 30.6 MCHC 33.9 RDW 14.6 Plt Count 147 D MPV 7.4 L Absolute Neuts (auto) 6.7 Neutrophils % 77.4 Lymphocytes % 11.8 Monocytes % 10.5 H Eosinophils % 0.2 D Basophils % 0.1 Nucleated RBC % 0 PT with INR INR PTT (Actin FS) VBG pH POC VBG pCO2 POC VBG pO2 Mixed VBG HCO3 Sodium 141 Potassium 3.7 Chloride 104 Carbon Dioxide 28 Anion Gap 9 BUN 25 H Creatinine 1.2 Creat Clearance w eGFR 57.82 Random Glucose 96 Lactic Acid Calcium 7.9 L Total Bilirubin 0.9 AST 16 ALT 11 L Alkaline Phosphatase 62 Troponin I Total Protein 6.4 Albumin 3.0 L Urine Color Yellow Urine Appearance Clear Urine pH 5.0 Ur Specific [place] 1.021 Urine Protein 1+ H Urine Glucose (UA) Negative Urine Ketones 1+ H Urine Blood 1+ H Urine Nitrite Negative Urine Bilirubin Negative Urine Urobilinogen Negative Ur Leukocyte Esterase Negative Urine WBC (Auto) 1 Urine RBC (Auto) 11 Ur Epithelial Cells Rare 05/26/18 05/26/18 05/26/18 14:38 14:38 14:38 WBC RBC Hgb Hct MCV MCH MCHC RDW Plt Count MPV Absolute Neuts (auto) Neutrophils % Lymphocytes % Monocytes % Eosinophils % Basophils % Nucleated RBC % PT with INR 13.10 H INR 1.11 H PTT (Actin FS) 27.6 VBG pH 7.42 POC VBG pCO2 42.1 POC VBG pO2 28.7 Mixed VBG HCO3 26.9 H Sodium Potassium Chloride Carbon Dioxide Anion Gap BUN Creatinine Creat Clearance w eGFR Random Glucose Lactic Acid 1.0 Calcium Total Bilirubin AST ALT Alkaline Phosphatase Troponin I Total Protein Albumin Urine Color Urine Appearance Urine pH Ur Specific [place] Urine Protein Urine Glucose (UA) Urine Ketones Urine Blood Urine Nitrite Urine Bilirubin Urine Urobilinogen Ur Leukocyte Esterase Urine WBC (Auto) Urine RBC (Auto) Ur Epithelial Cells 05/26/18 15:40 WBC RBC Hgb Hct MCV MCH MCHC RDW Plt Count MPV Absolute Neuts (auto) Neutrophils % Lymphocytes % Monocytes % Eosinophils % Basophils % Nucleated RBC % PT with INR INR PTT (Actin FS) VBG pH POC VBG pCO2 POC VBG pO2 Mixed VBG HCO3 Sodium Potassium Chloride Carbon Dioxide Anion Gap BUN Creatinine Creat Clearance w eGFR Random Glucose Lactic Acid Calcium Total Bilirubin AST ALT Alkaline Phosphatase Troponin I 0.02 Total Protein Albumin Urine Color Urine Appearance Urine pH Ur Specific [place] Urine Protein Urine Glucose (UA) Urine Ketones Urine Blood Urine Nitrite Urine Bilirubin Urine Urobilinogen Ur Leukocyte Esterase Urine WBC (Auto) Urine RBC (Auto) Ur Epithelial Cells ASSESSMENT/PLAN:
[2018-05-26] MEDS ORDERED: ACETAMINOPHEN 325 MG TABLET (FP) PO PRN (18:45)
--- NOTE | 2018-05-26 19:22 | HP ---
CHIEF COMPLAINT: PCP: HISTORY OF PRESENT ILLNESS: 1G Tylenol Dr. Garcia ordered 10 mg of Decadron NS 125 cc/hr ER course was notable for: (1) (2) (3) Recent Travel: PAST MEDICAL HISTORY: PAST SURGICAL HISTORY: Social History: Smoking: Alcohol: Drugs: Family History: Allergies No Known Allergies Allergy (Verified 06/23/16 19:33) HOME MEDICATIONS: Home Medications Medication Instructions Recorded Simvastatin 20 mg PO HS 06/23/16 Tamsulosin HCl [Flomax] 0.4 mg PO DAILY 05/23/18 Olmesartan Medoxomil 40 mg PO DAILY #30 tablet 05/25/18 levETIRAcetam [Keppra -] 500 mg PO BID #60 tablet 05/25/18 Bisacodyl [Laxative] 5 mg PO ASDIR 05/26/18 REVIEW OF SYSTEMS CONSTITUTIONAL: Absent: fever, chills, diaphoresis, generalized weakness, malaise, loss of appetite, weight change HEENT: Absent: rhinorrhea, nasal congestion, throat pain, throat swelling, difficulty swallowing, mouth swelling, ear pain, eye pain, visual changes CARDIOVASCULAR: Absent: chest pain, syncope, palpitations, irregular heart rate, lightheadedness , peripheral edema RESPIRATORY: Absent: cough, shortness of breath, dyspnea with exertion, orthopnea, wheezing, stridor, hemoptysis GASTROINTESTINAL: Absent: abdominal pain, abdominal distension, nausea, vomiting, diarrhea, constipation, melena, hematochezia GENITOURINARY: Absent: dysuria, frequency, urgency, hesitancy, hematuria, flank pain, genital pain MUSCULOSKELETAL: Absent: myalgia, arthralgia, joint swelling, back pain, neck pain SKIN: Absent: rash, itching, pallor HEMATOLOGIC/IMMUNOLOGIC: Absent: easy bleeding, easy bruising, lymphadenopathy, frequent infections ENDOCRINE: Absent: unexplained weight gain, unexplained weight loss, heat intolerance, cold intolerance NEUROLOGIC: Absent: headache, focal weakness or paresthesias, dizziness, unsteady gait, seizure, mental status changes, bladder or bowel incontinence PSYCHIATRIC: Absent: anxiety, depression, suicidal or homicidal ideation, hallucinations. PHYSICAL EXAMINATION Vital Signs - 24 hr 05/26/18 05/26/18 05/26/18 13:31 13:39 14:46 Temperature 100.2 F H 100.3 F H Pulse Rate 96 H 98 H 103 H Pulse Rate [ 99 H Left Apical] Respiratory 26 H 16 Rate Blood Pressure 163/88 158/94 Blood Pressure 154/94 [Right Arm] O2 Sat by Pulse 96 100 98 Oximetry (%) 05/26/18 05/26/18 05/26/18 15:29 17:05 18:36 Temperature 99.6 F 99.2 F Pulse Rate Pulse Rate [ 78 77 71 Left Apical] Respiratory 16 16 16 Rate Blood Pressure Blood Pressure 157/78 123/61 135/74 [Right Arm] O2 Sat by Pulse 98 99 97 Oximetry (%) GENERAL: Awake, alert, and fully oriented, in no acute distress. HEAD: Normal with no signs of trauma. EYES: Pupils equal, round and reactive to light, extraocular movements intact, sclera anicteric, conjunctiva clear. No lid lag. EARS, NOSE, THROAT: Ears normal, nares patent, oropharynx clear without exudates. Moist mucous membranes. NECK: Normal range of motion, supple without lymphadenopathy, JVD, or masses. LUNGS: Breath sounds equal, clear to auscultation bilaterally. No wheezes, and no crackles. No accessory muscle use. HEART: Regular rate and rhythm, normal S1 and S2 without murmur, rub or gallop. ABDOMEN: Soft, nontender, not distended, normoactive bowel sounds, no guarding, no rebound, no masses. No hepatomegaly or splenomegaly. MUSCULOSKELETAL: Normal range of motion at all joints. No bony deformities or tenderness. No CVA tenderness. UPPER EXTREMITIES: 2+ pulses, warm, well-perfused. No cyanosis. No clubbing. No peripheral edema. LOWER EXTREMITIES: 2+ pulses, warm, well-perfused. No calf tenderness. No peripheral edema. NEUROLOGICAL: Cranial nerves II-XII intact. Normal speech. Normal gait. PSYCHIATRIC: Cooperative. Good eye contact. Appropriate mood and affect. SKIN: Warm, dry, normal turgor, no rashes or lesions noted, normal capillary refill. Laboratory Results - last 24 hr 05/26/18 05/26/18 05/26/18 13:58 14:38 14:38 WBC 8.6 RBC 3.74 L Hgb 11.5 L Hct 33.8 L MCV 90.2 MCH 30.6 MCHC 33.9 RDW 14.6 Plt Count 147 D MPV 7.4 L Absolute Neuts (auto) 6.7 Neutrophils % 77.4 Lymphocytes % 11.8 Monocytes % 10.5 H Eosinophils % 0.2 D Basophils % 0.1 Nucleated RBC % 0 PT with INR INR PTT (Actin FS) VBG pH POC VBG pCO2 POC VBG pO2 Mixed VBG HCO3 Sodium 141 Potassium 3.7 Chloride 104 Carbon Dioxide 28 Anion Gap 9 BUN 25 H Creatinine 1.2 Creat Clearance w eGFR 57.82 Random Glucose 96 Lactic Acid Calcium 7.9 L Total Bilirubin 0.9 AST 16 ALT 11 L Alkaline Phosphatase 62 Troponin I Total Protein 6.4 Albumin 3.0 L Urine Color Yellow Urine Appearance Clear Urine pH 5.0 Ur Specific [place] 1.021 Urine Protein 1+ H Urine Glucose (UA) Negative Urine Ketones 1+ H Urine Blood 1+ H Urine Nitrite Negative Urine Bilirubin Negative Urine Urobilinogen Negative Ur Leukocyte Esterase Negative Urine WBC (Auto) 1 Urine RBC (Auto) 11 Ur Epithelial Cells Rare 05/26/18 05/26/18 05/26/18 14:38 14:38 14:38 WBC RBC Hgb Hct MCV MCH MCHC RDW Plt Count MPV Absolute Neuts (auto) Neutrophils % Lymphocytes % Monocytes % Eosinophils % Basophils % Nucleated RBC % PT with INR 13.10 H INR 1.11 H PTT (Actin FS) 27.6 VBG pH 7.42 POC VBG pCO2 42.1 POC VBG pO2 28.7 Mixed VBG HCO3 26.9 H Sodium Potassium Chloride Carbon Dioxide Anion Gap BUN Creatinine Creat Clearance w eGFR Random Glucose Lactic Acid 1.0 Calcium Total Bilirubin AST ALT Alkaline Phosphatase Troponin I Total Protein Albumin Urine Color Urine Appearance Urine pH Ur Specific [place] Urine Protein Urine Glucose (UA) Urine Ketones Urine Blood Urine Nitrite Urine Bilirubin Urine Urobilinogen Ur Leukocyte Esterase Urine WBC (Auto) Urine RBC (Auto) Ur Epithelial Cells 05/26/18 15:40 WBC RBC Hgb Hct MCV MCH MCHC RDW Plt Count MPV Absolute Neuts (auto) Neutrophils % Lymphocytes % Monocytes % Eosinophils % Basophils % Nucleated RBC % PT with INR INR PTT (Actin FS) VBG pH POC VBG pCO2 POC VBG pO2 Mixed VBG HCO3 Sodium Potassium Chloride Carbon Dioxide Anion Gap BUN Creatinine Creat Clearance w eGFR Random Glucose Lactic Acid Calcium Total Bilirubin AST ALT Alkaline Phosphatase Troponin I 0.02 Total Protein Albumin Urine Color Urine Appearance Urine pH Ur Specific [place] Urine Protein Urine Glucose (UA) Urine Ketones Urine Blood Urine Nitrite Urine Bilirubin Urine Urobilinogen Ur Leukocyte Esterase Urine WBC (Auto) Urine RBC (Auto) Ur Epithelial Cells CXR Head CT w/o contrast postoperative hanges of the right temporal lobe with increasing perilesional edema and midline shift since 05/24/18. ASSESSMENT/PLAN:
--- NOTE | 2018-05-26 19:46 | PDOC ---
*Physical Exam - Vital Signs Last Vital Signs Temp Pulse Resp BP Pulse Ox 99.2 F 69 16 145/75 98 05/26/18 18:36 05/26/18 19:38 05/26/18 19:38 05/26/18 19:38 05/26/18 19:38 - Physical Exam Comments: 05/26/18 19:47 GENERAL: Awake, alert, and fully oriented, in no acute distress ENT: Auricles normal inspection, hearing grossly normal, nares patent, oropharynx clear without exudates. Moist mucosa. NECK: Normal ROM, supple, no lymphadenopathy, JVD, or masses LUNGS: No distress, speaks full sentences, clear to auscultation bilaterally HEART: Regular rate and rhythm, normal S1 and S2, no murmurs, rubs or gallops, peripheral pulses normal and equal bilaterally. ABDOMEN: Soft, nontender, normoactive bowel sounds. No guarding, no rebound. No masses EXTREMITIES: Normal inspection, Normal range of motion, no edema. No clubbing or cyanosis. SKIN: Warm, Dry, normal turgor, no rashes or lesions noted. ED Treatment Course - LABORATORY CBC & Chemistry Diagram: 05/26/18 14:38 05/26/18 14:38 - ADDITIONAL ORDERS Additional order review: Laboratory Results 05/26/18 05/26/18 05/26/18 15:40 14:38 14:38 PT with INR INR PTT (Actin FS) VBG pH 7.42 POC VBG pCO2 42.1 POC VBG pO2 28.7 Mixed VBG HCO3 26.9 H Sodium Potassium Chloride Carbon Dioxide Anion Gap BUN Creatinine Creat Clearance w eGFR Random Glucose Lactic Acid 1.0 Calcium Total Bilirubin AST ALT Alkaline Phosphatase Troponin I 0.02 Total Protein Albumin Urine Color Urine Appearance Urine pH Ur Specific [place] Urine Protein Urine Glucose (UA) Urine Ketones Urine Blood Urine Nitrite Urine Bilirubin Urine Urobilinogen Ur Leukocyte Esterase Urine WBC (Auto) Urine RBC (Auto) Ur Epithelial Cells 05/26/18 05/26/18 05/26/18 14:38 14:38 13:58 PT with INR 13.10 H INR 1.11 H PTT (Actin FS) 27.6 VBG pH POC VBG pCO2 POC VBG pO2 Mixed VBG HCO3 Sodium 141 Potassium 3.7 Chloride 104 Carbon Dioxide 28 Anion Gap 9 BUN 25 H Creatinine 1.2 Creat Clearance w eGFR 57.82 Random Glucose 96 Lactic Acid Calcium 7.9 L Total Bilirubin 0.9 AST 16 ALT 11 L Alkaline Phosphatase 62 Troponin I Total Protein 6.4 Albumin 3.0 L Urine Color Yellow Urine Appearance Clear Urine pH 5.0 Ur Specific [place] 1.021 Urine Protein 1+ H Urine Glucose (UA) Negative Urine Ketones 1+ H Urine Blood 1+ H Urine Nitrite Negative Urine Bilirubin Negative Urine Urobilinogen Negative Ur Leukocyte Esterase Negative Urine WBC (Auto) 1 Urine RBC (Auto) 11 Ur Epithelial Cells Rare 05/26/18 14:38 RBC 3.74 L MCV 90.2 MCHC 33.9 RDW 14.6 MPV 7.4 L Neutrophils % 77.4 Lymphocytes % 11.8 Monocytes % 10.5 H Eosinophils % 0.2 D Basophils % 0.1 - Medications Given in the ED: ED Medications Discontinued Medications Generic Name Dose Route Start Last Admin Trade Name Freq PRN Reason Stop Dose Admin Acetaminophen 1,000 mg 05/26/18 14:48 05/26/18 14:55 Ofirmev Injection - IVPB 05/26/18 14:49 1,000 mg ONCE ONE Administration Dexamethasone Sodium Phosphate 10 mg 05/26/18 15:39 05/26/18 16:16 Decadron Injection - IVPUSH 05/26/18 15:40 10 mg ONCE ONE Administration Sodium Chloride 1,000 mls @ 125 mls/hr 05/26/18 15:00 05/26/18 15:01 Normal Saline - IV 125 mls/hr ASDIR STORMY Administration Medical Decision Making - Medical Decision Making 05/26/18 19:[address] Sims. Patient is 83M with history of basal cell carcinoma here today complaining of weakness, decreased ability to take PO who recently had brain mass removed. CT shows increased swelling and midline shift. Vitals have been stable, airway protected. Dr Garcia requesting ICU admission for close observation. Approved for ICU, Dr Arndt attending. *DC/Admit/Observation/Transfer Diagnosis at time of Disposition: Altered mental status - Discharge Dispostion Disposition: HOME Condition at time of disposition: Stable - Referrals - Patient Instructions - Post Discharge Activity
--- NOTE | 2018-05-26 20:56 | CONSULT ---
Consultation: REQUESTING PROVIDER: Dr Garcia CONSULT REQUEST: We have been asked to medically evaluate this patient for AMS. HISTORY OF PRESENT ILLNESS: 83 year old with PMH of HLD, HTN, and basal cell carcinoma, who presents with generalized weakness, lethargy, decreased PO, since being discharged on s/p R parietal crani for mass biopsy/resection for necrotic brain mass, biopsy pending. pt is now POD 2. patient was able to eat drink and ambulate while in the hospital post operatively. After leaving hospital became weaker and was not drinking or eating much. As the patient was leaving the hospital trying to get into the car, patients legs gave out, states his body felt like weight. At home pt was unable to ambulate to the bathroom. Pt also endorses a mild b/l frontal CISNEROS. Denies any cp, sob, urinary sxs, rashes , abd pain, numbness, tingling, incontinence. In the ED, pt noted w/ fever 100.2. sepsis w/u initiated. pt given IV tylenol, decadron 10, 1 bag NS 125cc EKG NSR CT head: edematous w/ increased midline shift. CXR: mildly worsened L atelectasis CT chest prelim read atelectisis and/or consolidation RLL w/ air bronchograms, small b/l pleural effusions Don made aware of patient. Recommends holding off on LP and requesting ICU admission for close observation REVIEW OF SYSTEMS: As per HPI PHYSICAL EXAMINATION Vital Signs - 24 hr 05/26/18 05/26/18 05/26/18 13:31 13:39 14:46 Temperature 100.2 F H 100.3 F H Pulse Rate 96 H 98 H 103 H Pulse Rate [ 99 H Left Apical] Respiratory 26 H 16 Rate Blood Pressure 163/88 158/94 Blood Pressure 154/94 [Right Arm] O2 Sat by Pulse 96 100 98 Oximetry (%) 05/26/18 05/26/18 05/26/18 15:29 17:05 18:36 Temperature 99.6 F 99.2 F Pulse Rate Pulse Rate [ 78 77 71 Left Apical] Respiratory 16 16 16 Rate Blood Pressure Blood Pressure 157/78 123/61 135/74 [Right Arm] O2 Sat by Pulse 98 99 97 Oximetry (%) 05/26/18 19:38 Temperature Pulse Rate Pulse Rate [ 69 Left Apical] Respiratory 16 Rate Blood Pressure Blood Pressure 145/75 [Right Arm] O2 Sat by Pulse 98 Oximetry (%) GENERAL: AOX2 doesnt know the year. lethargic, generalized weakness HEAD: bandages on R posterior side, clean and dry EYES: Pupils equal, round and reactive to light, extraocular movements intact, sclera anicteric, crusting on the eyelashes EARS, NOSE, THROAT: Ears normal, nares patent, oropharynx clear without exudates. dry MM NECK: Normal range of motion, supple without lymphadenopathy, JVD, or masses. LUNGS: CTAB. No wheezes, and no crackles. No accessory muscle use. HEART: irregular? soft heart sounds reg rate , normal S1 and S2 without murmur, rub or gallop. ABDOMEN: Soft, NTND, normoactive bowel sounds, no guarding, no rebound, no masses. MUSCULOSKELETAL: Normal range of motion at all joints. UPPER EXTREMITIES: 2+ pulses, warm, well-perfused. No cyanosis. LOWER EXTREMITIES: 2+ pulses, warm, well-perfused. NEUROLOGICAL: Cranial nerves II-XII intact. slowed speech. power in b/l upper and lower limb 3-4/5 due to lethargy and general weakness, sensation to touch intact b/l upper and lower limb. PSYCHIATRIC: Cooperative. Good eye contact. Appropriate mood and affect. SKIN: Warm, dry, Laboratory Results - last 24 hr 05/26/18 05/26/18 05/26/18 13:58 14:38 14:38 WBC 8.6 RBC 3.74 L Hgb 11.5 L Hct 33.8 L MCV 90.2 MCH 30.6 MCHC 33.9 RDW 14.6 Plt Count 147 D MPV 7.4 L Absolute Neuts (auto) 6.7 Neutrophils % 77.4 Lymphocytes % 11.8 Monocytes % 10.5 H Eosinophils % 0.2 D Basophils % 0.1 Nucleated RBC % 0 PT with INR INR PTT (Actin FS) VBG pH POC VBG pCO2 POC VBG pO2 Mixed VBG HCO3 Sodium 141 Potassium 3.7 Chloride 104 Carbon Dioxide 28 Anion Gap 9 BUN 25 H Creatinine 1.2 Creat Clearance w eGFR 57.82 Random Glucose 96 Lactic Acid Calcium 7.9 L Total Bilirubin 0.9 AST 16 ALT 11 L Alkaline Phosphatase 62 Troponin I Total Protein 6.4 Albumin 3.0 L Urine Color Yellow Urine Appearance Clear Urine pH 5.0 Ur Specific [place] 1.021 Urine Protein 1+ H Urine Glucose (UA) Negative Urine Ketones 1+ H Urine Blood 1+ H Urine Nitrite Negative Urine Bilirubin Negative Urine Urobilinogen Negative Ur Leukocyte Esterase Negative Urine WBC (Auto) 1 Urine RBC (Auto) 11 Ur Epithelial Cells Rare 05/26/18 05/26/18 05/26/18 14:38 14:38 14:38 WBC RBC Hgb Hct MCV MCH MCHC RDW Plt Count MPV Absolute Neuts (auto) Neutrophils % Lymphocytes % Monocytes % Eosinophils % Basophils % Nucleated RBC % PT with INR 13.10 H INR 1.11 H PTT (Actin FS) 27.6 VBG pH 7.42 POC VBG pCO2 42.1 POC VBG pO2 28.7 Mixed VBG HCO3 26.9 H Sodium Potassium Chloride Carbon Dioxide Anion Gap BUN Creatinine Creat Clearance w eGFR Random Glucose Lactic Acid 1.0 Calcium Total Bilirubin AST ALT Alkaline Phosphatase Troponin I Total Protein Albumin Urine Color Urine Appearance Urine pH Ur Specific [place] Urine Protein Urine Glucose (UA) Urine Ketones Urine Blood Urine Nitrite Urine Bilirubin Urine Urobilinogen Ur Leukocyte Esterase Urine WBC (Auto) Urine RBC (Auto) Ur Epithelial Cells 05/26/18 15:40 WBC RBC Hgb Hct MCV MCH MCHC RDW Plt Count MPV Absolute Neuts (auto) Neutrophils % Lymphocytes % Monocytes % Eosinophils % Basophils % Nucleated RBC % PT with INR INR PTT (Actin FS) VBG pH POC VBG pCO2 POC VBG pO2 Mixed VBG HCO3 Sodium Potassium Chloride Carbon Dioxide Anion Gap BUN Creatinine Creat Clearance w eGFR Random Glucose Lactic Acid Calcium Total Bilirubin AST ALT Alkaline Phosphatase Troponin I 0.02 Total Protein Albumin Urine Color Urine Appearance Urine pH Ur Specific [place] Urine Protein Urine Glucose (UA) Urine Ketones Urine Blood Urine Nitrite Urine Bilirubin Urine Urobilinogen Ur Leukocyte Esterase Urine WBC (Auto) Urine RBC (Auto) Ur Epithelial Cells Active Medications Generic Name Dose Route Start Last Admin Trade Name Freq PRN Reason Stop Dose Admin Acetaminophen 650 mg 05/26/18 18:45 Tylenol - PO Q6H PRN FEVER Atorvastatin Calcium 10 mg 05/26/18 22:00 Lipitor - PO HS STORMY Bisacodyl 5 mg 05/26/18 17:45 Dulcolax - PO DAILY PRN CONSTIPATION Chlorhexidine Gluconate 1 applic 05/26/18 22:00 Hibiclens For Decolonization - TP HS STORMY Dexamethasone Sodium Phosphate 4 mg 05/26/18 21:00 Decadron Injection - IVPUSH Q6H-IV STORMY Sodium Chloride 1,000 mls @ 75 mls/hr 05/26/18 19:00 05/26/18 19:07 Normal Saline - IV 75 mls/hr ASDIR STORMY Administration Levetiracetam 500 mg 05/26/18 22:00 Keppra - PO BID STORMY Mupirocin 1 applic 05/26/18 22:00 Bactroban Ointment (For Decolonization) - NS 05/31/18 21:59 BID STORMY Tamsulosin HCl 0.4 mg 05/27/18 08:30 Flomax - PO DAILY@0830 STORMY Valsartan 320 mg 05/27/18 10:00 Diovan - PO DAILY STORMY ASSESSMENT/PLAN: 83 year old with PMH of HLD, HTN, and basal cell carcinoma, who presents with generalized weakness, lethargy, decreased PO, since being discharged on s/p R parietal crani for mass biopsy/resection for necrotic brain mass, biopsy pending. pt is now POD 2. #Brain mass discharged on 05/25/18, POD 2, s/p R parietal crani for mass biopsy/resection, biopsy pending. Dr Ochoa requesting ICU monitoring In the ED, pt noted w/ fever 100.2. sepsis w/u initiated. pt given IV tylenol, decadron 10, 1 bag NS 125cc EKG NSR CT head: edematous w/ increased midline shift. CMP and UA unremarkable f/u Ucx, Bcx -Keep head end elevated. -neurosurgery on case. -decadron 4mg q6h standing for edema -Keppra 500mg BID. -frequent neuro exam. -cardiac monitoring. #sepsis?? - was tachy 99 w/ fever fever 100.2, HR now 70s s/p fluid and temp 99 w/ tylenol. BP have been stable CXR: mildly worsened L atelectasis CT chest prelim read atelectisis and/or consolidation RLL w/ air bronchograms, small b/l pleural effusions. f/u official read. CMP and UA unremarkable f/u Ucx, Bcx no leukocytosis Choudhri made aware of patient. Recommends holding off on LP and requesting ICU admission for close observation will hold off abx for now and monitor for improvement w/ fluids and decadron. fever may be due to brain edema ID consult #cardiac -maintain MAP >65 -IVF -monitor I/O -cardiac monitoring #Resp -maintain O2 sat >90% -sating well on O2 3L NC #Heme -H/H drop since yesterday, may be dilutional, pt on fluids -monitor H/H #MACO - bun/cr already was improving prior to dc and continues to improve -IVF -monitor I/O -mcgraw #HTN -olmesartan -monitor #HLD -simvastatin 20mg Fluid: IV fluid NS 125cc electrolytes: replete prn nutrition: NPO DVT pro: scd, hold off on AC in case of brain bleed, monitor H/H GI pro: not at this time Dispo: -returning to hospital POD 2 for gen weak and dec PO -monitor ICU We will continue to follow the patient. Thank you for this consultative opportunity. Visit type - Emergency Visit Emergency Visit: Yes ED Registration Date: 05/26/18 Care time: The patient presented to the Emergency Department on the above date and was hospitalized for further evaluation of their emergent condition. - New Patient This patient is new to me today: Yes Date on this admission: 05/26/18 - Critical Care Critical Care patient: Yes Total Critical Care Time (in minutes): 38 Critical Care Statement: The care of this patient involved high complexity decision making to prevent further life threatening deterioration of the patient 's condition and/or to evaluate & treat vital organ system(s) failure or risk of failure.
[2018-05-26] MEDS ORDERED: ACETAMINOPHEN 1000 MG/100 ML VIAL (NON FORMULARY) IVPB PRN (21:51)
[2018-05-26] MEDS ORDERED: levETIRAcetam 500 MG TABLET (FP) PO SCH (22:00)
[2018-05-26] MEDS ORDERED: ATORVASTATIN CA 10 MG TABLET (FP) PO SCH (22:00)
[2018-05-26] MEDS ORDERED: PATIENT'S OWN MEDICATION (NON-FORMULARY) (Simvastatin [Simvastatin] 20 MG) PO SCH (22:00)
[2018-05-26] MEDS ORDERED: DEXAMETHASONE SOD PHOSPHATE 4 MG/1 ML VIAL IVPUSH ONE (22:10)
[2018-05-26] MEDS: DEXAMETHASONE SOD PHOSPHATE 4 MG/1 ML VIAL IVPUSH SCH (22:40)
[2018-05-26] MEDS: MUPIROCIN 2% TOPICAL OINTMENT FOR DECOLONIZATION NS SCH (22:40)
[2018-05-26] MEDS: CHLORHEXIDINE GLUCONATE 4% CLEANSER FOR DECOLONIZATION TP SCH (22:41)
[2018-05-27 05:53] LABS: BASO % 0.1 % (0-2.0); HEMATOCRIT 34.1 % (35.4-49); HEMOGLOBIN 11.7 GM/dL (11.7-16.9); LYMPH % 12.8 % (8-40); MCH 30.8 pg (25.7-33.7); MCHC 34.3 g/dl (32.0-35.9); MEAN CELL VOLUME 89.8 fl (80-96); MEAN PLT VOLUME 7.4 fl (7.5-11.1); MONO % 7.1 % (3.8-10.2); PLATELET COUNT 145 K/MM3 (134-434); RBC 3.79 M/mm3 (4.00-5.60); RDW 14.5 % (11.9-15.9); WHITE BLOOD COUNT 7.7 K/mm3 (4.0-10.0)
[2018-05-27] MEDS: DEXAMETHASONE SOD PHOSPHATE 4 MG/1 ML VIAL IVPUSH SCH ×4 (06:21→21:11)
[2018-05-27 06:26] LABS: ALBUMIN 2.6 g/dl (3.4-5.0); ALK PHOS 63 U/L (45-117); ANION GAP 9 MMOL/L (8-16); BILIRUBIN,TOTAL 0.5 mg/dL (0.2-1); BLOOD UREA NITROGEN 22 mg/dL (7-18); CALCIUM 7.6 mg/dL (8.5-10.1); CHLORIDE 108 mmol/L (98-107); CO2 26 mmol/L (21-32); GLUCOSE,RANDOM 122 mg/dL (74-106); MAGNESIUM 2.1 mg/dL (1.8-2.4); POTASSIUM 4.4 mmol/L (3.5-5.1); SGOT/AST 16 U/L (15-37); SGPT/ALT 10 U/L (13-61); SODIUM 143 mmol/L (136-145); TOT PROT 5.7 g/dl (6.4-8.2)
[2018-05-27] MEDS ORDERED: TAMSULOSIN HCL 0.4 MG CAP PO SCH (08:30)
[2018-05-27] MEDS ORDERED: DEXTROSE 5%-WATER - 50 ML IVPB ONE (09:22)
[2018-05-27] MEDS ORDERED: cefTRIAXone SODIUM 1 GM VIAL ONE (09:22)
[2018-05-27] MEDS: TAMSULOSIN HCL 0.4 MG CAP PO SCH (09:26)
[2018-05-27] MEDS: levETIRAcetam 500 MG TABLET (FP) PO SCH ×2 (09:27→21:56)
[2018-05-27] MEDS: VALSARTAN 160 MG TABLET (UD) PO SCH (09:27)
[2018-05-27] MEDS: AZITHROMYCIN IVPB 500 MG/250 ML BAG IVPB SCH (09:28)
[2018-05-27] MEDS: MUPIROCIN 2% TOPICAL OINTMENT FOR DECOLONIZATION NS SCH ×2 (09:38→21:56)
--- NOTE | 2018-05-27 09:58 | HP ---
CHIEF COMPLAINT: Profound weakness Neurosurgeon: Dr. Ochoa HISTORY OF PRESENT ILLNESS: 83 year-old male with a PMH significant for a necrotic brain mass s/p right parietal craniotomy and excision of brain mass on 05/24/18. Patient was discharged on 05/25/18. He was brought back to the ED today by his two daughters. Patient has become progressively weaker, too weak to walk. He has become incontinent of urine and his PO intake has been diminished. 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; lives at home with daughter Smokin cigarette/day Alcohol: social Drugs: no Family History: Allergies No Known Allergies Allergy (Verified 06/23/16 19:33) HOME MEDICATIONS: Home Medications Medication Instructions Recorded Simvastatin 20 mg PO HS 06/23/16 Tamsulosin HCl [Flomax] 0.4 mg PO DAILY 05/23/18 Olmesartan Medoxomil 40 mg PO DAILY #30 tablet 05/25/18 levETIRAcetam [Keppra -] 500 mg PO BID #60 tablet 05/25/18 Bisacodyl [Laxative] 5 mg PO ASDIR 05/26/18 REVIEW OF SYSTEMS CONSTITUTIONAL: +generalized weakness, loss of appetite Absent: fever, chills, diaphoresis, generalized weakness, malaise, loss of appetite, weight change HEENT: Absent: rhinorrhea, nasal congestion, throat pain, throat swelling, difficulty swallowing, mouth swelling, ear pain, eye pain, visual changes CARDIOVASCULAR: Absent: chest pain, syncope, palpitations, irregular heart rate, lightheadedness , peripheral edema RESPIRATORY: Absent: cough, shortness of breath, dyspnea with exertion, orthopnea, wheezing, stridor, hemoptysis GASTROINTESTINAL: Absent: abdominal pain, abdominal distension, nausea, vomiting, diarrhea, constipation, melena, hematochezia GENITOURINARY: +incontinence of urine Absent: dysuria, frequency, urgency, hesitancy, hematuria, flank pain, genital pain MUSCULOSKELETAL: Absent: myalgia, arthralgia, joint swelling, back pain, neck pain SKIN: Absent: rash, itching, pallor HEMATOLOGIC/IMMUNOLOGIC: Absent: easy bleeding, easy bruising, lymphadenopathy, frequent infections ENDOCRINE: Absent: unexplained weight gain, unexplained weight loss, heat intolerance, cold intolerance NEUROLOGIC: Absent: headache, focal weakness or paresthesias, dizziness, unsteady gait, seizure, mental status changes, bladder or bowel incontinence PSYCHIATRIC: Absent: anxiety, depression, suicidal or homicidal ideation, hallucinations. PHYSICAL EXAMINATION Vital Signs - 24 hr 05/26/18 05/26/18 05/26/18 13:31 13:39 14:46 Temperature 100.2 F H 100.3 F H Pulse Rate 96 H 98 H 103 H Pulse Rate [ 99 H Left Apical] Respiratory 26 H 16 Rate Blood Pressure 163/88 158/94 Blood Pressure 154/94 [Right Arm] O2 Sat by Pulse 96 100 98 Oximetry (%) GENERAL: Somnolent but easily arousable, A&Ox3; weak appearing HEAD: telfa dressing to right parietal area, c/d/i EYES: right pupil irregular, both pupils reactive to light, EOMI, sclera anicteric, conjunctiva clear. No lid lag. Left eye with green dry crust LUNGS: Breath sounds equal, clear to auscultation bilaterally. No wheezes, and no crackles. No accessory muscle use. HEART: Regular rate and rhythm, S1 and S2 ABDOMEN: Soft, nontender, not distended, normoactive bowel sounds UPPER EXTREMITIES: 2+ pulses, warm, well-perfused. No cyanosis. No clubbing. No peripheral edema. LOWER EXTREMITIES: 2+ pulses, warm, well-perfused. No calf tenderness. No peripheral edema. NEUROLOGICAL: Cranial nerves II-XII intact. Normal speech. Laboratory Results - last 24 hr 05/26/18 05/26/18 05/26/18 13:58 14:38 14:38 WBC 8.6 RBC 3.74 L Hgb 11.5 L Hct 33.8 L MCV 90.2 MCH 30.6 MCHC 33.9 RDW 14.6 Plt Count 147 D MPV 7.4 L Absolute Neuts (auto) 6.7 Neutrophils % 77.4 Lymphocytes % 11.8 Monocytes % 10.5 H Eosinophils % 0.2 D Basophils % 0.1 Nucleated RBC % 0 PT with INR INR PTT (Actin FS) VBG pH POC VBG pCO2 POC VBG pO2 Mixed VBG HCO3 Sodium 141 Potassium 3.7 Chloride 104 Carbon Dioxide 28 Anion Gap 9 BUN 25 H Creatinine 1.2 Creat Clearance w eGFR 57.82 Random Glucose 96 Lactic Acid Calcium 7.9 L Magnesium Total Bilirubin 0.9 AST 16 ALT 11 L Alkaline Phosphatase 62 Troponin I Total Protein 6.4 Albumin 3.0 L Urine Color Yellow Urine Appearance Clear Urine pH 5.0 Ur Specific [place] 1.021 Urine Protein 1+ H Urine Glucose (UA) Negative Urine Ketones 1+ H Urine Blood 1+ H Urine Nitrite Negative Urine Bilirubin Negative Urine Urobilinogen Negative Ur Leukocyte Esterase Negative Urine WBC (Auto) 1 Urine RBC (Auto) 11 Ur Epithelial Cells Rare 05/26/18 05/26/18 05/26/18 14:38 14:38 14:38 WBC RBC Hgb Hct MCV MCH MCHC RDW Plt Count MPV Absolute Neuts (auto) Neutrophils % Lymphocytes % Monocytes % Eosinophils % Basophils % Nucleated RBC % PT with INR 13.10 H INR 1.11 H PTT (Actin FS) 27.6 VBG pH 7.42 POC VBG pCO2 42.1 POC VBG pO2 28.7 Mixed VBG HCO3 26.9 H Sodium Potassium Chloride Carbon Dioxide Anion Gap BUN Creatinine Creat Clearance w eGFR Random Glucose Lactic Acid 1.0 Calcium Magnesium Total Bilirubin AST ALT Alkaline Phosphatase Troponin I Total Protein Albumin Urine Color Urine Appearance Urine pH Ur Specific [place] Urine Protein Urine Glucose (UA) Urine Ketones Urine Blood Urine Nitrite Urine Bilirubin Urine Urobilinogen Ur Leukocyte Esterase Urine WBC (Auto) Urine RBC (Auto) Ur Epithelial Cells 05/26/18 05/27/18 05/27/18 15:40 05:30 05:30 WBC 7.7 RBC 3.79 L Hgb 11.7 Hct 34.1 L MCV 89.8 MCH 30.8 MCHC 34.3 RDW 14.5 Plt Count 145 MPV 7.4 L Absolute Neuts (auto) 6.2 Neutrophils % 80.0 Lymphocytes % 12.8 Monocytes % 7.1 Eosinophils % 0.0 D Basophils % 0.1 Nucleated RBC % 0 PT with INR INR PTT (Actin FS) VBG pH POC VBG pCO2 POC VBG pO2 Mixed VBG HCO3 Sodium 143 Potassium 4.4 Chloride 108 H Carbon Dioxide 26 Anion Gap 9 BUN 22 H Creatinine 1.0 Creat Clearance w eGFR > 60 Random Glucose 122 H Lactic Acid Calcium 7.6 L Magnesium 2.1 Total Bilirubin 0.5 AST 16 ALT 10 L Alkaline Phosphatase 63 Troponin I 0.02 Total Protein 5.7 L Albumin 2.6 L Urine Color Urine Appearance Urine pH Ur Specific [place] Urine Protein Urine Glucose (UA) Urine Ketones Urine Blood Urine Nitrite Urine Bilirubin Urine Urobilinogen Ur Leukocyte Esterase Urine WBC (Auto) Urine RBC (Auto) Ur Epithelial Cells ASSESSMENT/PLAN 83 year-old male with a PMH significant for a necrotic brain mass s/p right parietal craniotomy and excision of brain mass on 05/24/18. Admitted for progressive weakness. Necrotic brain mass s/p right parietal craniotomy --POD #2 --CT: since 05/24, increasing perilesional edema and 9mm midline shift with further compression of the right lateral ventricle --given dexamethasone 10mg x 1 in ED; continue dexamethasone 4mg q6h --initial temp 100.2, repeat rectal 99, no leukocytosis; CXR shows possible left infiltrate; cultures collected and sent; observe off antibiotics --continue Keppra --discussed with Dr. Ochoa DVT prophylaxis: SCDs Transfer to ICU Visit type - Emergency Visit Emergency Visit: Yes ED Registration Date: 05/26/18 Care time: The patient presented to the Emergency Department on the above date and was hospitalized for further evaluation of their emergent condition. - New Patient This patient is new to me today: Yes Date on this admission: 05/27/18 - Critical Care Critical Care patient: Yes Total Critical Care Time (in minutes): 45 Critical Care Statement: The care of this patient involved high complexity decision making to prevent further life threatening deterioration of the patient 's condition and/or to evaluate & treat vital organ system(s) failure or risk of failure.
[2018-05-27] MEDS ORDERED: VALSARTAN 160 MG TABLET (UD) PO SCH (10:00)
[2018-05-27] MEDS ORDERED: PATIENT'S OWN MEDICATION (NON-FORMULARY) (Olmesartan Medoxomil [Olmesartan Medoxomil] 40 M PO SCH (10:00)
[2018-05-27] MEDS ORDERED: CEFTRIAXONE 1 GM in DEXTROSE 5%-WATER - 50 ML IVPB SCH (10:00)
--- NOTE | 2018-05-27 10:53 | PN ---
Teaching Attending Note Name of Resident: Nithin Mckeon ATTENDING PHYSICIAN STATEMENT I saw and evaluated the patient. I reviewed the resident's note and discussed the case with the resident. I agree with the resident's findings and plan as documented. SUBJECTIVE: Patient is complaining of feeling weak, feels weak on feet. OBJECTIVE: Vital Signs Temperature 97.4 F L 05/27/18 03:41 Pulse Rate 60 05/27/18 10:00 Respiratory Rate 18 05/27/18 10:00 Blood Pressure 144/71 05/27/18 10:00 O2 Sat by Pulse Oximetry (%) 100 05/27/18 08:05 GENERAL: AOX2 does not know the year NAD HEAD: NCAT,EYES: Pupils equal, round and reactive to light, extraocular movements intact, conjunctiva clear. EARS, NOSE, THROAT: Ears normal, oropharynx clear without exudates. MMM NECK: Normal range of motion, supple without lymphadenopathy, JVD, or masses. LUNGS: CTAB. No wheezes, and no crackles. No accessory muscle use. HEART: RRR, normal S1 and S2 without murmur, rub or gallop. ABDOMEN: Soft, NTND, normoactive bowel sounds, no guarding, no rebound, no masses. EXTREMITIES: 2+ pulses, warm, well-perfused. No cyanosis. NEUROLOGICAL: Cranial nerves II-XII intact. Normal speech. PSYCHIATRIC: Cooperative. Good eye contact. Appropriate mood and affect. SKIN: Warm, dry. WBC 7.7 K/mm3 (4.0-10.0) 05/27/18 05:30 RBC 3.79 M/mm3 (4.00-5.60) L 05/27/18 05:30 Hgb 11.7 GM/dL (11.7-16.9) 05/27/18 05:30 Hct 34.1 % (35.4-49) L 05/27/18 05:30 MCV 89.8 fl (80-96) 05/27/18 05:30 MCHC 34.3 g/dl (32.0-35.9) 05/27/18 05:30 RDW 14.5 % (11.9-15.9) 05/27/18 05:30 Plt Count 145 K/MM3 (134-434) 05/27/18 05:30 MPV 7.4 fl (7.5-11.1) L 05/27/18 05:30 CMP Sodium 143 mmol/L (136-145) 05/27/18 05:30 Potassium 4.4 mmol/L (3.5-5.1) 05/27/18 05:30 Chloride 108 mmol/L (98-107) H 05/27/18 05:30 Carbon Dioxide 26 mmol/L (21-32) 05/27/18 05:30 Anion Gap 9 MMOL/L (8-16) 05/27/18 05:30 BUN 22 mg/dL (7-18) H 05/27/18 05:30 Creatinine 1.0 mg/dL (0.55-1.3) 05/27/18 05:30 Creat Clearance w eGFR > 60 (>60) 05/27/18 05:30 Random Glucose 122 mg/dL (74-106) H 05/27/18 05:30 Calcium 7.6 mg/dL (8.5-10.1) L 05/27/18 05:30 Total Bilirubin 0.5 mg/dL (0.2-1) 05/27/18 05:30 AST 16 U/L (15-37) 05/27/18 05:30 ALT 10 U/L (13-61) L 05/27/18 05:30 Alkaline Phosphatase 63 U/L (45-117) 05/27/18 05:30 Total Protein 5.7 g/dl (6.4-8.2) L 05/27/18 05:30 Albumin 2.6 g/dl (3.4-5.0) L 05/27/18 05:30 CARDIAC ENZYMES Troponin I 0.02 ng/ml (0.00-0.05) 05/26/18 15:40 Current Medications Generic Name Dose Route Start Last Admin Trade Name Freq PRN Reason Stop Dose Admin Acetaminophen 1,000 mg 05/26/18 21:51 05/26/18 22:36 Ofirmev Injection - IVPB 1,000 mg Q6H PRN Administration PAIN LEVEL 6-10 Atorvastatin Calcium 10 mg 05/27/18 22:00 Lipitor - PO HS STORMY Bisacodyl 5 mg 05/26/18 22:50 Dulcolax - PO DAILY PRN CONSTIPATION Chlorhexidine Gluconate 1 applic 05/26/18 22:00 05/26/18 22:41 Hibiclens For Decolonization - TP 1 applic HS STORMY Administration Dexamethasone Sodium Phosphate 4 mg 05/26/18 21:00 05/27/18 09:27 Decadron Injection - IVPUSH 4 mg Q6H-IV STORMY Administration Sodium Chloride 1,000 mls @ 75 mls/hr 05/26/18 19:00 05/26/18 19:07 Normal Saline - IV 75 mls/hr ASDIR STORMY Administration Ceftriaxone Sodium 1 gm/ 50 mls @ 200 mls/hr 05/27/18 10:00 05/27/18 09:27 Dextrose IVPB 200 mls/hr DAILY STORMY Administration Protocol Azithromycin 500 mg in 250 mls @ 250 mls/hr 05/27/18 10:00 05/27/18 09:28 Zithromax 500mg Ivpb (Pre-Docked) IVPB 250 mls/hr DAILY STORMY Administration Levetiracetam 500 mg 05/27/18 10:00 05/27/18 09:27 Keppra - PO 500 mg BID STORMY Administration Mupirocin 1 applic 05/26/18 22:00 05/27/18 09:38 Bactroban Ointment (For Decolonization) - NS 05/31/18 21:59 1 applic BID STORMY Administration Tamsulosin HCl 0.4 mg 05/27/18 08:30 05/27/18 09:26 Flomax - PO 0.4 mg DAILY@0830 STORMY Administration Tobramycin Sulfate 1 drop 05/27/18 14:00 Tobrex Ophthalmic Solution - OU TID STORMY Valsartan 320 mg 05/27/18 10:00 05/27/18 09:27 Diovan - PO 320 mg DAILY STORMY Administration Home Medications Medication Instructions Recorded Simvastatin 20 mg PO HS 06/23/16 Tamsulosin HCl [Flomax] 0.4 mg PO DAILY 05/23/18 Olmesartan Medoxomil 40 mg PO DAILY #30 tablet 05/25/18 levETIRAcetam [Keppra -] 500 mg PO BID #60 tablet 05/25/18 Bisacodyl [Laxative] 5 mg PO ASDIR 05/26/18 Microbiology 05/26/18 14:38 Blood - Peripheral Venous Blood Culture - Preliminary NO GROWTH OBTAINED AFTER 24 HOURS, INCUBATION TO CONTINUE FOR 4 DAYS. 05/26/18 14:38 Blood - Peripheral Venous Blood Culture - Preliminary NO GROWTH OBTAINED AFTER 24 HOURS, INCUBATION TO CONTINUE FOR 4 DAYS. 05/26/18 13:58 Urine - Urine Clean Catch Urine Culture - Final NO GROWTH OBTAINED CT: since 05/24, increasing perilesional edema and 9mm midline shift with further compression of the right lateral ventricle CXR shows possible left infiltrate ASSESSMENT AND PLAN: Patient is a 83 yo male with PMHx of HTN, HLD, Basal cell carcinoma s/p excision , admitted for right temporal lobe necrotic mass with vasogenic edema # POD #2 (05/24) for Right parietal craniotomy, excision of brain mass by , neurosx on the case. s/p dexamethasone 10mg x 1 in ED; continue dexamethasone 4mg q6h, Seizure px Keppra #Generalized Weakness monitor , PT evaluation #HTN BP controlled ,will continue Diovan, and discontinue HCTZ that the patient takes at home. #HLD continue Zocor #Hx of Basal Cell carcinoma s/p excision DVT Px: SCD
--- NOTE | 2018-05-27 10:58 | PN ---
Physical Exam: SUBJECTIVE: Patient seen and examined OBJECTIVE: Vital Signs Period Temp Pulse Resp BP Sys/[place] Pulse Ox Last 24 Hr 97.4 F-100.3 F 57-103 16-26 122-163/61-94 96-100 GENERAL: The patient is awake, alert, and fully oriented, in no acute distress. HEAD: Normal with no signs of trauma. EYES: PERRL, extraocular movements intact, sclera anicteric, conjunctiva clear. No ptosis. ENT: Ears normal, nares patent, oropharynx clear without exudates, moist mucous membranes. NECK: Trachea midline, full range of motion, supple. LUNGS: Breath sounds equal, clear to auscultation bilaterally, no wheezes, no crackles, no accessory muscle use. HEART: Regular rate and rhythm, S1, S2 without murmur, rub or gallop. ABDOMEN: Soft, nontender, nondistended, normoactive bowel sounds, no guarding, no rebound, no hepatosplenomegaly, no masses. EXTREMITIES: 2+ pulses, warm, well-perfused, no edema. NEUROLOGICAL: Cranial nerves II through XII grossly intact. Normal speech, gait not observed. PSYCH: Normal mood, normal affect. SKIN: Warm, dry, normal turgor, no rashes or lesions noted Laboratory Results - last 24 hr 05/26/18 05/26/18 05/26/18 13:58 14:38 14:38 WBC 8.6 RBC 3.74 L Hgb 11.5 L Hct 33.8 L MCV 90.2 MCH 30.6 MCHC 33.9 RDW 14.6 Plt Count 147 D MPV 7.4 L Absolute Neuts (auto) 6.7 Neutrophils % 77.4 Lymphocytes % 11.8 Monocytes % 10.5 H Eosinophils % 0.2 D Basophils % 0.1 Nucleated RBC % 0 PT with INR INR PTT (Actin FS) VBG pH POC VBG pCO2 POC VBG pO2 Mixed VBG HCO3 Sodium 141 Potassium 3.7 Chloride 104 Carbon Dioxide 28 Anion Gap 9 BUN 25 H Creatinine 1.2 Creat Clearance w eGFR 57.82 Random Glucose 96 Lactic Acid Calcium 7.9 L Magnesium Total Bilirubin 0.9 AST 16 ALT 11 L Alkaline Phosphatase 62 Troponin I Total Protein 6.4 Albumin 3.0 L Urine Color Yellow Urine Appearance Clear Urine pH 5.0 Ur Specific [place] 1.021 Urine Protein 1+ H Urine Glucose (UA) Negative Urine Ketones 1+ H Urine Blood 1+ H Urine Nitrite Negative Urine Bilirubin Negative Urine Urobilinogen Negative Ur Leukocyte Esterase Negative Urine WBC (Auto) 1 Urine RBC (Auto) 11 Ur Epithelial Cells Rare 05/26/18 05/26/18 05/26/18 14:38 14:38 14:38 WBC RBC Hgb Hct MCV MCH MCHC RDW Plt Count MPV Absolute Neuts (auto) Neutrophils % Lymphocytes % Monocytes % Eosinophils % Basophils % Nucleated RBC % PT with INR 13.10 H INR 1.11 H PTT (Actin FS) 27.6 VBG pH 7.42 POC VBG pCO2 42.1 POC VBG pO2 28.7 Mixed VBG HCO3 26.9 H Sodium Potassium Chloride Carbon Dioxide Anion Gap BUN Creatinine Creat Clearance w eGFR Random Glucose Lactic Acid 1.0 Calcium Magnesium Total Bilirubin AST ALT Alkaline Phosphatase Troponin I Total Protein Albumin Urine Color Urine Appearance Urine pH Ur Specific [place] Urine Protein Urine Glucose (UA) Urine Ketones Urine Blood Urine Nitrite Urine Bilirubin Urine Urobilinogen Ur Leukocyte Esterase Urine WBC (Auto) Urine RBC (Auto) Ur Epithelial Cells 05/26/18 05/27/18 05/27/18 15:40 05:30 05:30 WBC 7.7 RBC 3.79 L Hgb 11.7 Hct 34.1 L MCV 89.8 MCH 30.8 MCHC 34.3 RDW 14.5 Plt Count 145 MPV 7.4 L Absolute Neuts (auto) 6.2 Neutrophils % 80.0 Lymphocytes % 12.8 Monocytes % 7.1 Eosinophils % 0.0 D Basophils % 0.1 Nucleated RBC % 0 PT with INR INR PTT (Actin FS) VBG pH POC VBG pCO2 POC VBG pO2 Mixed VBG HCO3 Sodium 143 Potassium 4.4 Chloride 108 H Carbon Dioxide 26 Anion Gap 9 BUN 22 H Creatinine 1.0 Creat Clearance w eGFR > 60 Random Glucose 122 H Lactic Acid Calcium 7.6 L Magnesium 2.1 Total Bilirubin 0.5 AST 16 ALT 10 L Alkaline Phosphatase 63 Troponin I 0.02 Total Protein 5.7 L Albumin 2.6 L Urine Color Urine Appearance Urine pH Ur Specific [place] Urine Protein Urine Glucose (UA) Urine Ketones Urine Blood Urine Nitrite Urine Bilirubin Urine Urobilinogen Ur Leukocyte Esterase Urine WBC (Auto) Urine RBC (Auto) Ur Epithelial Cells Active Medications Generic Name Dose Route Start Last Admin Trade Name Freq PRN Reason Stop Dose Admin Acetaminophen 1,000 mg 05/26/18 21:51 05/26/18 22:36 Ofirmev Injection - IVPB 1,000 mg Q6H PRN Administration PAIN LEVEL 6-10 Atorvastatin Calcium 10 mg 05/27/18 22:00 Lipitor - PO HS STORMY Bisacodyl 5 mg 05/26/18 22:50 Dulcolax - PO DAILY PRN CONSTIPATION Chlorhexidine Gluconate 1 applic 05/26/18 22:00 05/26/18 22:41 Hibiclens For Decolonization - TP 1 applic HS STORMY Administration Dexamethasone Sodium Phosphate 4 mg 05/26/18 21:00 05/27/18 09:27 Decadron Injection - IVPUSH 4 mg Q6H-IV STORMY Administration Sodium Chloride 1,000 mls @ 75 mls/hr 05/26/18 19:00 05/26/18 19:07 Normal Saline - IV 75 mls/hr ASDIR ST[facility]MY Administration Azithromycin 500 mg in 250 mls @ 250 mls/hr 05/27/18 10:00 05/27/18 09:28 Zithromax 500mg Ivpb (Pre-Docked) IVPB 250 mls/hr DAILY ST[facility]MY Administration Levetiracetam 500 mg 05/27/18 10:00 05/27/18 09:27 Keppra - PO 500 mg BID STORMY Administration Mupirocin 1 applic 05/26/18 22:00 05/27/18 09:38 Bactroban Ointment (For Decolonization) - NS 05/31/18 21:59 1 applic BID STORMY Administration Tamsulosin HCl 0.4 mg 05/27/18 08:30 05/27/18 09:26 Flomax - PO 0.4 mg DAILY@0830 ST[facility]MY Administration Tobramycin Sulfate 1 drop 05/27/18 14:00 Tobrex Ophthalmic Solution - OU TID STORMY Valsartan 320 mg 05/27/18 10:00 05/27/18 09:27 Diovan - PO 320 mg DAILY STORMY Administration ASSESSMENT/PLAN:
--- NOTE | 2018-05-27 11:01 | PN ---
Teaching Attending Note Name of Resident: Crissy Brady ATTENDING PHYSICIAN STATEMENT I saw and evaluated the patient. I reviewed the resident's note and discussed the case with the resident. I agree with the resident's findings and plan as documented. SUBJECTIVE: Pt seen and examined in the ICU. c/o mild right sided headache. No nausea, visual changes or focal deficits. OBJECTIVE: CBC, BMP 05/27/18 05:30 05/27/18 05:30 Active Medications Acetaminophen (Ofirmev Injection -) 1,000 mg IVPB Q6H PRN PRN Reason: PAIN LEVEL 6-10 Last Admin: 05/26/18 22:36 Dose: 1,000 mg Atorvastatin Calcium (Lipitor -) 10 mg PO HS STORMY Bisacodyl (Dulcolax -) 5 mg PO DAILY PRN PRN Reason: CONSTIPATION Chlorhexidine Gluconate (Hibiclens For Decolonization -) 1 applic TP HS [facility] Last Admin: 05/26/18 22:41 Dose: 1 applic Dexamethasone Sodium Phosphate (Decadron Injection -) 4 mg IVPUSH Q6H-IV STORMY Last Admin: 05/27/18 09:27 Dose: 4 mg Sodium Chloride (Normal Saline -) 1,000 mls @ 75 mls/hr IV ASDIR [facility] Last Admin: 05/26/18 19:07 Dose: 75 mls/hr Azithromycin (Zithromax 500mg Ivpb (Pre-Docked)) 500 mg in 250 mls @ 250 mls/ hr IVPB DAILY [facility] Last Admin: 05/27/18 09:28 Dose: 250 mls/hr Levetiracetam (Keppra -) 500 mg PO BID [facility] Last Admin: 05/27/18 09:27 Dose: 500 mg Mupirocin (Bactroban Ointment (For Decolonization) -) 1 applic NS BID [facility] Stop: 05/31/18 21:59 Last Admin: 05/27/18 09:38 Dose: 1 applic Tamsulosin HCl (Flomax -) 0.4 mg PO DAILY@0830 [facility] Last Admin: 05/27/18 09:26 Dose: 0.4 mg Tobramycin Sulfate (Tobrex Ophthalmic Solution -) 1 drop OU TID [facility] Valsartan (Diovan -) 320 mg PO DAILY [facility] Last Admin: 05/27/18 09:27 Dose: 320 mg ASSESSMENT AND PLAN: Altered Mental Status Recent R Parietal Craniotomy for Brain Mass Increasing Cerebral Edema Pneumonia Acute Kidney Injury HTN Hyperlipidemia BPH - continue decadron - neurosurgery eval - d/c IVF - continue antibiotics - f/u cultures - aspiration precautions - mechanical DVT prophylaxis
--- NOTE | 2018-05-27 11:11 | CON.ID ---
Consult - History of Present Illness History of Present Illness: Asked to evaluate this 83 y.o. male with PMH of HTN, Basal cell CA who had been noted to develop lethargy/AMS in the past couple of months. 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 Pt was d/c home the following home but noted to develop increased weakness, decreased oral intake, and lethargy. Upon this admission pt has been having low grade fevers. CT head reveals cerebral edema with midline shift and CT chest is notable for b/l LL atelectasis and possible RLL consolidation. Pt is currently weak but appropriately responsive. He reports mild generalized headache but denies shortness of breath/cough, diaphoresis/ chills, abd pain/n/v/d, neck stiffness, dysuria. - History Source History Provided By: Patient, Medical Record Limitations to Obtaining History: No Limitations - Past Medical History Cardio/Vascular: Yes: HTN, Hyperlipdemia Renal/: Yes: BPH Dermatology: Yes: Basal Cell Additional Medical History: HLD. BCC - Past Surgical History Additional Surgical History: Rt parietal craniectomy and brain mass resection - Alcohol/Substance Use Hx Alcohol Use: No - Smoking History Smoking history: Former smoker Have you smoked in the past 12 months: No - Social History History of Recent Travel: No Home Medications - Allergies Allergies/Adverse Reactions: Allergies Allergy/AdvReac Type Severity Reaction Status Date / Time No Known Allergies Allergy Verified 06/23/16 19:33 - Home Medications Home Medications: Ambulatory Orders Simvastatin 20 mg PO HS 06/23/16 Tamsulosin HCl [Flomax] 0.4 mg PO DAILY 05/23/18 Olmesartan Medoxomil 40 mg PO DAILY #30 tablet 05/25/18 levETIRAcetam [Keppra -] 500 mg PO BID #60 tablet 05/25/18 Bisacodyl [Laxative] 5 mg PO ASDIR 05/26/18 Review of Systems - Review of Systems Constitutional: reports: Lethargy Eyes: denies: No Symptoms, Blind Spots, Blurred Vision, Double Vision, Eye Pain , Floaters, Photophobia, Recent Change in Vision, Other HENT: denies: No Symptoms, Difficult Swallowing, Ear Discharge, Ear Pain, Epistaxis, Gingival Bleeding, Hearing Loss, Mouth Swelling, Nasal Congestion, Ocular Prosthesis, Throat Pain, Toothache, Ringing in Ears, Other Neck: reports: No Symptoms. denies: Decreased ROM, Lumps, Pain on Movement, Stiffness, Swollen Glands, Tenderness, Other Cardiovascular: reports: No Symptoms. denies: Chest Pain, Edema, Palpitations, Shortness of Breath, Other Respiratory: reports: No Symptoms. denies: Cough, Exercise Intolerance, Hemoptysis, Orthopnea, PND, Snoring, SOB, SOB on Exertion, Wheezing, Other Gastrointestinal: reports: No Symptoms. denies: Abdominal Pain, Bloating, Constipation, Diarrhea, Dysphagia, Indigestion, Melena, Nausea, Rectal Bleeding , Vomiting, Vomiting Blood, Other Genitourinary: reports: No Symptoms. denies: Burning, Discharge, Dysuria, Flank Pain, Frequency, Hematuria, Incontinence, Lesions, Menses, Pain, Testicular Mass, Testicular Pain, Testicular Swelling, Urgency, Vaginal Bleeding , Other Breasts: reports: No Symptoms Reported. denies: See HPI, Breast Implants, Discharge from Nipple, Lumps, Pain, Skin Changes, Other Musculoskeletal: reports: No Symptoms. denies: Back Pain, Crepitus, Decreased ROM, Extremity Pain, Joint Pain, Joint Swelling, Muscle Pain, Muscle Cramps, Muscle Weakness, Other Integumentary: reports: No Symptoms. denies: Blister, Bruising, Change in Color , Eczema, Erythema, Incision, Lesions, Lump, Pallor, Pruritis, Rash, Wound, Other Neurological: reports: Headache, Weakness Endocrine: reports: No Symptoms. denies: Excessive Sweating, Flushing, Increased Hunger, Increased Thirst, Intolerance to Cold, Intolerance to Heat, Unexplained Weight Gain, Unexplained Weight Loss, Other Physical Exam Vital Signs: Vital Signs Temperature 97.4 F L 05/27/18 03:41 Pulse Rate 60 05/27/18 10:00 Respiratory Rate 18 05/27/18 10:00 Blood Pressure 144/71 05/27/18 10:00 O2 Sat by Pulse Oximetry (%) 100 05/27/18 08:05 Constitutional: Yes: No Distress, Calm Eyes: Yes: Conjunctiva Clear Neck: Yes: Supple Cardiovascular: Yes: Regular Rate and Rhythm Respiratory: Yes: Diminished (slight Lt base) Gastrointestinal: Yes: Normal Bowel Sounds, Soft Renal/: Yes: WNL Musculoskeletal: Yes: WNL Extremities: Yes: WNL Edema: No Integumentary: Yes: WNL Neurological: Yes: Alert, Weakness ...Motor Strength: WNL Psychiatric: Yes: Alert Labs: CBC, BMP 05/27/18 05:30 05/27/18 05:30 Microbiology 05/26/18 13:58 Urine - Urine Clean Catch Urine Culture - Final NO GROWTH OBTAINED Imaging - Results Chest X-ray: Report Reviewed Cat Scan: Report Reviewed Problem List - Problems (1) Altered mental status Code(s): R41.82 - ALTERED MENTAL STATUS, UNSPECIFIED (2) Confusion Code(s): R41.0 - DISORIENTATION, UNSPECIFIED (3) HLD (hyperlipidemia) Code(s): E78.5 - HYPERLIPIDEMIA, UNSPECIFIED Qualifiers: Hyperlipidemia type: unspecified Qualified Code(s): E78.5 - Hyperlipidemia , unspecified (4) HTN (hypertension) Code(s): I10 - ESSENTIAL (PRIMARY) HYPERTENSION Qualifiers: Hypertension type: essential hypertension Qualified Code(s): I10 - Essential (primary) hypertension (5) Intracranial mass Code(s): R90.0 - INTCRN SPACE-OCCUPYING LESION FOUND ON DX IMAGING OF CNSL Assessment/Plan 83 y.o. male with PMH of HTN, HLD, Basal cell CA, with necrotic brain mass s/p Rt parietal craniectomy/mass resection/biopsy on 05/24/18 presenting with weakness, decreased oral intake, lethargy and noted to have low grade fevers Fever - infectious vs inflammatory Possible PNA Brain mass s/p resection/biopsy - results pending Cerebral Edema with midline shift -- imaging and lab results noted -- continue Ceftriaxone/Azithromycin empirically for now -- f/u blood culture results, urinary Ags of Strep/legion -- LP held due to abnormal CT head findings -- monitor temperature trends -- pt without acute respiratory distress at this time -- neurology following -- will broaden antibiotic coverage if fevers persist or pt has further decompensation will follow Thank you cc: 45 min
[2018-05-27] MEDS: CEFTRIAXONE 1 GM in DEXTROSE 5%-WATER - 50 ML IVPB SCH (12:07)
--- NOTE | 2018-05-27 13:04 | PN ---
Physical Exam: SUBJECTIVE: Patient seen and examined at bed side this morning. States he wants to eat "pound cake". Reports to have mild headache, located in the right side, non radiating, 3/10 in intensity. Denies chest pain, sob, cough palpitation, abdominal pain, nausea or vomiting. No acute overnight events. OBJECTIVE: Vital Signs Period Temp Pulse Resp BP Sys/[place] Pulse Ox Last 24 Hr 97.4 F-100.3 F 57-103 16-26 122-163/60-94 96-100 GENERAL: Elderly male, sitting comfortably in bed, awake, alert, and fully oriented (to time, place and person but not the year), in no acute distress. HEAD: Bandages on the right posterior side, no soakage. EYES: EOM intact, no pallor or icterus. ENT: Ears normal, dry mucous membranes. NECK: Supple. LUNGS: B/L lungs clear, no crackles or wheeze. HEART: Regular rate and rhythm, S1, S2 with soft systolic murmur. ABDOMEN: Soft, nontender, no organomegaly. EXTREMITIES: 2+ pulses, warm, well-perfused, no edema. NEUROLOGICAL: No facial droop. power 5/5 in all ext. Sensation intact. Normal speech, gait not observed. PSYCH: Normal mood, normal affect. SKIN: Warm, dry, normal turgor, no rashes or lesions noted Laboratory Results - last 24 hr 05/26/18 05/26/18 05/26/18 13:58 14:38 14:38 WBC 8.6 RBC 3.74 L Hgb 11.5 L Hct 33.8 L MCV 90.2 MCH 30.6 MCHC 33.9 RDW 14.6 Plt Count 147 D MPV 7.4 L Absolute Neuts (auto) 6.7 Neutrophils % 77.4 Lymphocytes % 11.8 Monocytes % 10.5 H Eosinophils % 0.2 D Basophils % 0.1 Nucleated RBC % 0 PT with INR INR PTT (Actin FS) VBG pH POC VBG pCO2 POC VBG pO2 Mixed VBG HCO3 Sodium 141 Potassium 3.7 Chloride 104 Carbon Dioxide 28 Anion Gap 9 BUN 25 H Creatinine 1.2 Creat Clearance w eGFR 57.82 Random Glucose 96 Lactic Acid Calcium 7.9 L Magnesium Total Bilirubin 0.9 AST 16 ALT 11 L Alkaline Phosphatase 62 Troponin I Total Protein 6.4 Albumin 3.0 L Urine Color Yellow Urine Appearance Clear Urine pH 5.0 Ur Specific [place] 1.021 Urine Protein 1+ H Urine Glucose (UA) Negative Urine Ketones 1+ H Urine Blood 1+ H Urine Nitrite Negative Urine Bilirubin Negative Urine Urobilinogen Negative Ur Leukocyte Esterase Negative Urine WBC (Auto) 1 Urine RBC (Auto) 11 Ur Epithelial Cells Rare 05/26/18 05/26/18 05/26/18 14:38 14:38 14:38 WBC RBC Hgb Hct MCV MCH MCHC RDW Plt Count MPV Absolute Neuts (auto) Neutrophils % Lymphocytes % Monocytes % Eosinophils % Basophils % Nucleated RBC % PT with INR 13.10 H INR 1.11 H PTT (Actin FS) 27.6 VBG pH 7.42 POC VBG pCO2 42.1 POC VBG pO2 28.7 Mixed VBG HCO3 26.9 H Sodium Potassium Chloride Carbon Dioxide Anion Gap BUN Creatinine Creat Clearance w eGFR Random Glucose Lactic Acid 1.0 Calcium Magnesium Total Bilirubin AST ALT Alkaline Phosphatase Troponin I Total Protein Albumin Urine Color Urine Appearance Urine pH Ur Specific [place] Urine Protein Urine Glucose (UA) Urine Ketones Urine Blood Urine Nitrite Urine Bilirubin Urine Urobilinogen Ur Leukocyte Esterase Urine WBC (Auto) Urine RBC (Auto) Ur Epithelial Cells 05/26/18 05/27/18 05/27/18 15:40 05:30 05:30 WBC 7.7 RBC 3.79 L Hgb 11.7 Hct 34.1 L MCV 89.8 MCH 30.8 MCHC 34.3 RDW 14.5 Plt Count 145 MPV 7.4 L Absolute Neuts (auto) 6.2 Neutrophils % 80.0 Lymphocytes % 12.8 Monocytes % 7.1 Eosinophils % 0.0 D Basophils % 0.1 Nucleated RBC % 0 PT with INR INR PTT (Actin FS) VBG pH POC VBG pCO2 POC VBG pO2 Mixed VBG HCO3 Sodium 143 Potassium 4.4 Chloride 108 H Carbon Dioxide 26 Anion Gap 9 BUN 22 H Creatinine 1.0 Creat Clearance w eGFR > 60 Random Glucose 122 H Lactic Acid Calcium 7.6 L Magnesium 2.1 Total Bilirubin 0.5 AST 16 ALT 10 L Alkaline Phosphatase 63 Troponin I 0.02 Total Protein 5.7 L Albumin 2.6 L Urine Color Urine Appearance Urine pH Ur Specific [place] Urine Protein Urine Glucose (UA) Urine Ketones Urine Blood Urine Nitrite Urine Bilirubin Urine Urobilinogen Ur Leukocyte Esterase Urine WBC (Auto) Urine RBC (Auto) Ur Epithelial Cells Active Medications Generic Name Dose Route Start Last Admin Trade Name Freq PRN Reason Stop Dose Admin Acetaminophen 1,000 mg 05/26/18 21:51 05/26/18 22:36 Ofirmev Injection - IVPB 1,000 mg Q6H PRN Administration PAIN LEVEL 6-10 Atorvastatin Calcium 10 mg 05/27/18 22:00 Lipitor - PO HS STORMY Bisacodyl 5 mg 05/26/18 22:50 Dulcolax - PO DAILY PRN CONSTIPATION Chlorhexidine Gluconate 1 applic 05/26/18 22:00 05/26/18 22:41 Hibiclens For Decolonization - TP 1 applic HS STORMY Administration Dexamethasone Sodium Phosphate 4 mg 05/26/18 21:00 05/27/18 09:27 Decadron Injection - IVPUSH 4 mg Q6H-IV STORMY Administration Azithromycin 500 mg in 250 mls @ 250 mls/hr 05/27/18 10:00 05/27/18 09:28 Zithromax 500mg Ivpb (Pre-Docked) IVPB 250 mls/hr DAILY STORMY Administration Ceftriaxone Sodium 1 gm/ 50 mls @ 100 mls/hr 05/27/18 11:15 05/27/18 12:07 Dextrose IVPB Not Given DAILY [facility] Protocol Levetiracetam 500 mg 05/27/18 10:00 05/27/18 09:27 Keppra - PO 500 mg BID STORMY Administration Mupirocin 1 applic 05/26/18 22:00 05/27/18 09:38 Bactroban Ointment (For Decolonization) - NS 05/31/18 21:59 1 applic BID STORMY Administration Tamsulosin HCl 0.4 mg 05/27/18 08:30 05/27/18 09:26 Flomax - PO 0.4 mg DAILY@0830 STORMY Administration Tobramycin Sulfate 1 drop 05/27/18 14:00 Tobrex Ophthalmic Solution - OU TID STORMY Valsartan 320 mg 05/27/18 10:00 05/27/18 09:27 Diovan - PO 320 mg DAILY STORMY Administration CT head done on 05/26/18 showed Post op changes of the right temporal lobe with increasing perilesional edema and midline shift ASSESSMENT/PLAN: 83 year old with PMH of HLD, HTN, and basal cell carcinoma, who presents with generalized weakness, lethargy, decreased PO, since being discharged on s/p R parietal crani for mass biopsy/resection for necrotic brain mass, biopsy pending. pt is now POD 3. Neuro Brain mass (showed gliomas) s/p resection on 05/25/18-POD 3 Frozen section showed hematoma, official read pending CT head done on 05/26/18 showed Post op changes of the right temporal lobe with increasing perilesional edema and midline shift Admitted in ICU for close monitoring Mental status at baseline, no focal neurological deficits, full neuro exam normal Dr. Mast saw the patient today, diet advanced On IV Decadron 4mg Q6H IV Keppra 500mg BID for prophylaxis (no seizures noted) Frequent Neuro checks Respiratory On admission, had temp 100.3 F with CXR showing left infiltrate/atelectasis. pt has been afebrile overnight, lungs clear on auscultation but would cover for CAP with IV ceftriaxone and IV azithromycin Blood cultures/urine cultures pending. Urine for legionella ag sent. There was concern for meningitis on admission, however, it is unlikely given no temp since admission in ICU, mental status at baseline and patient is hemodynamically stable. LP is contraindicated given the midline shift on Head CT. Appreciate ID consult Cardio Hypertension-stable Continue Valsartan 320mg PO Hyperlipidemia: Continue Statin 10mg Heme/Renal- no acute issues FEN Stopped IV fluids, tolerating PO Electrolytes: WNL Sodium controlled diet Prophylaxis For DVT: Scds, heparin on hold due to recent surgery and possibility of brain bleed For GI: Not indicated Dispo: Admitted in ICU and will continue to monitor. Illness, Investigation and Plan of care explained to the patient. He verbalized understanding. Case seen and discussed with Dr. Arndt and Dr. Mast. We will continue to follow the patient. Thank you for this consultative opportunity. Visit type - Emergency Visit Emergency Visit: Yes ED Registration Date: 05/26/18 Care time: The patient presented to the Emergency Department on the above date and was hospitalized for further evaluation of their emergent condition. - New Patient This patient is new to me today: No - Critical Care Critical Care patient: Yes Total Critical Care Time (in minutes): 35 Critical Care Statement: The care of this patient involved high complexity decision making to prevent further life threatening deterioration of the patient 's condition and/or to evaluate & treat vital organ system(s) failure or risk of failure. - Discharge Referral Referred to [facility] Med [facility] No
--- NOTE | 2018-05-27 13:55 | PN ---
Physical Exam: SUBJECTIVE: Patient seen and examined. NO acute events overnight. Pt. denies any complaints at this time. Pt. endorses increased confusion and is unaware of events that recently happened. OBJECTIVE: Vital Signs Period Temp Pulse Resp BP Sys/[place] Pulse Ox Last 24 Hr 97.4 F-100.3 F 57-103 16-18 122-158/60-94 97-100 GENERAL: The patient is awake, alert, and fully oriented, in no acute distress, Pt. has increased lethargy since last Monday, and has some aphasia EYES: PERRL, extraocular movements intact, sclera anicteric, conjunctiva clear. No ptosis. ENT: Ears normal, nares patent, oropharynx with white exudates on tongue, moist mucous membranes. NECK: Trachea midline, full range of motion, supple. LUNGS: Breath sounds equal, clear to auscultation bilaterally, no wheezes, no crackles, no accessory muscle use. HEART: Regular rate and rhythm, S1, S2 without murmur, rub or gallop. ABDOMEN: Soft, nontender, nondistended, normoactive bowel sounds, no guarding, no rebound, East draining gold colored urine. EXTREMITIES: 2+ dorsal pedal pulses, warm, well-perfused, no edema. 5/5 muscle strength on right, 4/5? muscle strength on left, sensation in tact NEUROLOGICAL: Cranial nerves II through XII grossly intact. Normal speech, gait not observed. PSYCH: Confused, difficulty remembering events SKIN: Warm, dry, normal turgor, head dressing c/d/i Laboratory Results - last 24 hr 05/26/18 05/26/18 05/26/18 13:58 14:38 14:38 WBC 8.6 RBC 3.74 L Hgb 11.5 L Hct 33.8 L MCV 90.2 MCH 30.6 MCHC 33.9 RDW 14.6 Plt Count 147 D MPV 7.4 L Absolute Neuts (auto) 6.7 Neutrophils % 77.4 Lymphocytes % 11.8 Monocytes % 10.5 H Eosinophils % 0.2 D Basophils % 0.1 Nucleated RBC % 0 PT with INR INR PTT (Actin FS) VBG pH POC VBG pCO2 POC VBG pO2 Mixed VBG HCO3 Sodium 141 Potassium 3.7 Chloride 104 Carbon Dioxide 28 Anion Gap 9 BUN 25 H Creatinine 1.2 Creat Clearance w eGFR 57.82 Random Glucose 96 Lactic Acid Calcium 7.9 L Magnesium Total Bilirubin 0.9 AST 16 ALT 11 L Alkaline Phosphatase 62 Troponin I Total Protein 6.4 Albumin 3.0 L Urine Color Yellow Urine Appearance Clear Urine pH 5.0 Ur Specific [place] 1.021 Urine Protein 1+ H Urine Glucose (UA) Negative Urine Ketones 1+ H Urine Blood 1+ H Urine Nitrite Negative Urine Bilirubin Negative Urine Urobilinogen Negative Ur Leukocyte Esterase Negative Urine WBC (Auto) 1 Urine RBC (Auto) 11 Ur Epithelial Cells Rare 05/26/18 05/26/18 05/26/18 14:38 14:38 14:38 WBC RBC Hgb Hct MCV MCH MCHC RDW Plt Count MPV Absolute Neuts (auto) Neutrophils % Lymphocytes % Monocytes % Eosinophils % Basophils % Nucleated RBC % PT with INR 13.10 H INR 1.11 H PTT (Actin FS) 27.6 VBG pH 7.42 POC VBG pCO2 42.1 POC VBG pO2 28.7 Mixed VBG HCO3 26.9 H Sodium Potassium Chloride Carbon Dioxide Anion Gap BUN Creatinine Creat Clearance w eGFR Random Glucose Lactic Acid 1.0 Calcium Magnesium Total Bilirubin AST ALT Alkaline Phosphatase Troponin I Total Protein Albumin Urine Color Urine Appearance Urine pH Ur Specific [place] Urine Protein Urine Glucose (UA) Urine Ketones Urine Blood Urine Nitrite Urine Bilirubin Urine Urobilinogen Ur Leukocyte Esterase Urine WBC (Auto) Urine RBC (Auto) Ur Epithelial Cells 05/26/18 05/27/18 05/27/18 15:40 05:30 05:30 WBC 7.7 RBC 3.79 L Hgb 11.7 Hct 34.1 L MCV 89.8 MCH 30.8 MCHC 34.3 RDW 14.5 Plt Count 145 MPV 7.4 L Absolute Neuts (auto) 6.2 Neutrophils % 80.0 Lymphocytes % 12.8 Monocytes % 7.1 Eosinophils % 0.0 D Basophils % 0.1 Nucleated RBC % 0 PT with INR INR PTT (Actin FS) VBG pH POC VBG pCO2 POC VBG pO2 Mixed VBG HCO3 Sodium 143 Potassium 4.4 Chloride 108 H Carbon Dioxide 26 Anion Gap 9 BUN 22 H Creatinine 1.0 Creat Clearance w eGFR > 60 Random Glucose 122 H Lactic Acid Calcium 7.6 L Magnesium 2.1 Total Bilirubin 0.5 AST 16 ALT 10 L Alkaline Phosphatase 63 Troponin I 0.02 Total Protein 5.7 L Albumin 2.6 L Urine Color Urine Appearance Urine pH Ur Specific [place] Urine Protein Urine Glucose (UA) Urine Ketones Urine Blood Urine Nitrite Urine Bilirubin Urine Urobilinogen Ur Leukocyte Esterase Urine WBC (Auto) Urine RBC (Auto) Ur Epithelial Cells Active Medications Current Medications Acetaminophen (Ofirmev Injection -) 1,000 mg IVPB Q6H PRN PRN Reason: PAIN LEVEL 6-10 Last Admin: 05/26/18 22:36 Dose: 1,000 mg Atorvastatin Calcium (Lipitor -) 10 mg PO [facility] Bisacodyl (Dulcolax -) 5 mg PO DAILY PRN PRN Reason: CONSTIPATION Chlorhexidine Gluconate (Hibiclens For Decolonization -) 1 applic TP HS [facility] Last Admin: 05/26/18 22:41 Dose: 1 applic Dexamethasone Sodium Phosphate (Decadron Injection -) 4 mg IVPUSH Q6H-IV [facility] Last Admin: 05/27/18 09:27 Dose: 4 mg Azithromycin (Zithromax 500mg Ivpb (Pre-Docked)) 500 mg in 250 mls @ 250 mls/ hr IVPB DAILY [facility] Last Admin: 05/27/18 09:28 Dose: 250 mls/hr Ceftriaxone Sodium 1 gm/ (Dextrose) 50 mls @ 100 mls/hr IVPB DAILY [facility]; Protocol Last Admin: 05/27/18 12:07 Dose: Not Given Levetiracetam (Keppra -) 500 mg PO BID [facility] Last Admin: 05/27/18 09:27 Dose: 500 mg Mupirocin (Bactroban Ointment (For Decolonization) -) 1 applic NS BID [facility] Stop: 05/31/18 21:59 Last Admin: 05/27/18 09:38 Dose: 1 applic Tamsulosin HCl (Flomax -) 0.4 mg PO DAILY@0830 [facility] Last Admin: 05/27/18 09:26 Dose: 0.4 mg Tobramycin Sulfate (Tobrex Ophthalmic Solution -) 1 drop OU TID [facility] Valsartan (Diovan -) 320 mg PO DAILY [facility] Last Admin: 05/27/18 09:27 Dose: 320 mg Home Medications Medication Instructions Recorded Simvastatin 20 mg PO HS 06/23/16 Tamsulosin HCl [Flomax] 0.4 mg PO DAILY 05/23/18 Olmesartan Medoxomil 40 mg PO DAILY #30 tablet 05/25/18 levETIRAcetam [Keppra -] 500 mg PO BID #60 tablet 05/25/18 Bisacodyl [Laxative] 5 mg PO [facility] 05/26/18 ASSESSMENT/PLAN: 83 year old with PMH of HLD, HTN, and basal cell carcinoma, who presents with generalized weakness, lethargy, decreased PO, since being discharged on s/p R parietal crani for mass biopsy/resection for necrotic brain mass, biopsy pending. Pt is now POD 2. #Neurology -Metabolic Encephalopathy s/p Brain mass excision and biopsy POD#2 discharged on 05/25/18, POD 2, s/p R parietal crani for mass biopsy/resection, biopsy pending. CT head: edematous w/ increased( 0.8cm --> 0.9cm) midline shift. CMP and UA unremarkable Neurosurgery (Dr. Ochoa) appreciated c/w decadron 4mg q6h standing for edema Keppra 500mg BID. frequent neuro exam. cardiac monitoring. #Infectious Disease -R/o sepsis Pt. was tachycardic to 99 BPM w/ temperature of 100.3 on re-admission CXR: mildly worsened L atelectasis CT chest prelim read atelectisis and/or consolidation RLL w/ air bronchograms, small b/l pleural effusions. f/u official read. CMP and UA unremarkable f/u Ucx, Bcx no leukocytosis Don made aware of patient. Recommends holding off on LP and requesting ICU admission for close observation Fever may be due to brain edema, however c/w Ceftriaxone and Azithromycin Day- 2. Potentially will switch to Cefepime from Ceftriaxone for broader coverage. ID consult (Dr. Mcmahon) appreciated #Cardiology -HTN maintain MAP >65 IVF monitor I/O cardiac monitoring EKG NSR Olmesartan -HLD simvastatin 20mg #F/E/N -IV fluid NS 125cc electrolytes: replete prn nutrition: NPO DVT Ppx SCDs hold off on AC in case of brain bleed, monitor H/H Visit type - Emergency Visit Emergency Visit: Yes ED Registration Date: 05/26/18 Care time: The patient presented to the Emergency Department on the above date and was hospitalized for further evaluation of their emergent condition. - New Patient This patient is new to me today: No - Critical Care Critical Care patient: Yes Total Critical Care Time (in minutes): 32 Critical Care Statement: The care of this patient involved high complexity decision making to prevent further life threatening deterioration of the patient 's condition and/or to evaluate & treat vital organ system(s) failure or risk of failure. - Discharge Referral Referred to [facility] No
--- NOTE | 2018-05-27 14:05 | EKG ---
Test Reason : Blood Pressure : / mmHG Vent. Rate : 098 BPM Atrial Rate : 098 BPM P-R Int : 192 ms QRS Dur : 078 ms QT Int : 364 ms P-R-T Axes : 041 -11 002 degrees QTc Int : 464 ms NORMAL SINUS RHYTHM WITH SINUS ARRHYTHMIA INFERIOR INFARCT , AGE UNDETERMINED ABNORMAL ECG WHEN COMPARED WITH ECG OF 23-MAY-2018 14:52, NO SIGNIFICANT CHANGE WAS FOUND Confirmed by MD Karol, Brandyn ([id number]) on 05/27/2018 2:04:37 PM Referred By: Confirmed By:Brandyn Roberson MD
[2018-05-27] MEDS ORDERED: PT OWN MED DRAWER 7, Y5N ONE (14:23)
[2018-05-27 14:27] VITALS: BMI 32.5
[2018-05-27] MEDS: TOBRAMYCIN 0.3% OPHTH SOLN 5 ML BOTTLE OU SCH ×2 (14:28→21:58)
--- NOTE | 2018-05-27 21:50 | CONSULT ---
Consult - text type - Consultation Consultation Note: NEUROSURGERY CONSULTATION Patient was doing very well after Right posterior temporal craniotomy and resection of brain mass on . Postoperative CT showed good decompression and reduced mass effect. Patient did not clearly improve with Decadron and his wound is at risk for poor healing due to prior skin cancer surgery and skin grafting. Due to the lax brain noted at surgery, reduced mass effect noted on CT after surgery, concerns for wound healing and little if any benefit from the steroids, they were discontinued. Patient was ambulatory and wide awake when assessed on Monday. After discussion with ICU physicians, nursing, Physical Therapy, residents and patient's daughters, all agreed that he was near his baseline level of functioning and should be safe for discharge. Due to the persisting concern that this lesion may represent a malignant neoplasm, my preference was not to keep him in the hospital unnecessarily. The patient was discharged on Monday. Unfortunately, by Monday, he was lethargic, unable to ambulate and had complaints of headaches. He returned to the ER where CT Head revealed substantial increased swelling. Chest imaging suggested a Left lower lobe infiltrate which was not apparent on the CT from Monday. Infectious Diseases was consulted and empiric antibiotics were started after cultures were sent. The patient was also given 10mg IV Decadron and placed on 4mg IV Q6. The treatments for the potential chest infection and Decadron resulted in substantial improvement in the patient's condition overnight. I had a long discussion with patient's family concerning the rationale for holding the steroids when he was doing well and for discharge on Monday. All questions were answered. All are in agreement with the current plan of care: BRAIN LESION - Continue Decadron 4 Q6 for now and await Pathology results CHEST INFILTRATE - Continue Antibiotics for now and follow cultures GAIT DIFFICULTIES - Physical Therapy now and plans for discharge to Rehab once medically stable
[2018-05-27] MEDS: CHLORHEXIDINE GLUCONATE 4% CLEANSER FOR DECOLONIZATION TP SCH (21:56)
[2018-05-27] MEDS ORDERED: ATORVASTATIN CA 10 MG TABLET (FP) PO SCH (22:00)
[2018-05-28] MEDS: DEXAMETHASONE SOD PHOSPHATE 4 MG/1 ML VIAL IVPUSH SCH ×4 (03:00→21:37)
[2018-05-28 06:03] LABS: ANION GAP 8 MMOL/L (8-16); BLOOD UREA NITROGEN 30 mg/dL (7-18); CALCIUM 7.8 mg/dL (8.5-10.1); CHLORIDE 108 mmol/L (98-107); CO2 26 mmol/L (21-32); CREATININE 0.9 mg/dL (0.55-1.3); GLUCOSE,RANDOM 113 mg/dL (74-106); MAGNESIUM 2.1 mg/dL (1.8-2.4); PHOSPHOROUS 2.4 mg/dL (2.5-4.9); POTASSIUM 4.1 mmol/L (3.5-5.1); SODIUM 142 mmol/L (136-145)
[2018-05-28 06:04] LABS: BASO % 0.1 % (0-2.0); HEMATOCRIT 34.2 % (35.4-49); HEMOGLOBIN 11.8 GM/dL (11.7-16.9); LYMPH % 11.5 % (8-40); MCH 30.8 pg (25.7-33.7); MCHC 34.4 g/dl (32.0-35.9); MEAN CELL VOLUME 89.5 fl (80-96); MEAN PLT VOLUME 7.9 fl (7.5-11.1); MONO % 5.4 % (3.8-10.2); PLATELET COUNT 172 K/MM3 (134-434); RBC 3.82 M/mm3 (4.00-5.60); RDW 14.2 % (11.9-15.9); WHITE BLOOD COUNT 8.2 K/mm3 (4.0-10.0)
[2018-05-28] MEDS: TOBRAMYCIN 0.3% OPHTH SOLN 5 ML BOTTLE OU SCH ×3 (06:27→21:39)
[2018-05-28] MEDS ORDERED: cefTRIAXone SODIUM 1 GM VIAL ONE (08:10)
[2018-05-28] MEDS ORDERED: PT OWN MED DRAWER 7, Y5N ONE ×2 (08:10→21:13)
[2018-05-28] MEDS ORDERED: DEXTROSE 5%-WATER - 50 ML IVPB ONE (08:10)
--- NOTE | 2018-05-28 08:40 | PN ---
Progress Note (short form) - Note Progress Note: POD 4 Pt seen and examined. S/P Right posterior temporal craniotomy and resection of brain mass on , 05/24. Pt was doing well Monday AM, now returns for admission due to lethargy and inability to ambulate as well as headaches. This morning pt reports no headaches, states he feels okay and is requesting to go home later today. Voiding without issue. Has not been oob yet. Denies cp, sob, n /v/d, calf pain/edema. Vital Signs Temp 98.9 F 05/28/18 06:00 Pulse 84 05/28/18 08:00 Resp 18 05/28/18 08:00 BP 160/80 05/28/18 08:00 Pulse Ox 98 05/28/18 08:23 Intake & Output 05/27/18 05/27/18 05/28/18 11:59 23:59 11:59 Intake Total 600 1450 62 Output Total 1000 300 300 Balance -400 1150 -238 Weight 202 lb 2.622 oz 202 lb 202 lb Intake: IV 600 750 12 Normal Saline - 1,000 ml 600 750 12 @ 75 mls/hr IV ASDIR [facility] Rx#:[id number] IVPB 350 Oral 350 50 Output: Urine 1000 300 300 East 1000 300 300 Other: Voiding Method Indwelling Catheter Indwelling Catheter Indwelling Catheter Height 5 ft 6 in Body Mass Index (BMI) 32.5 Weight Measurement Method Built in [facility] 05/28/18 05:30 05/28/18 05:30 Gen: awake, alert, nad. Appears dazed/confused as compared to Monday morning. Head: R parietal dressing c/d/i Resp: cta b/l CV: rrr, s1s2 Neuro: Speech comprehensible, speaking in full sentences without any difficulty. No facial droop noted, tongue protrudes midline. B/L ue's juice scaleman strength intact, biceps/triceps/deltoids 5/5 b/l, silt b/l. B/L le's dorsiflexion/plantar flexion, silt b/l. 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 CTH (05/26) reviewed by attending, Dr Mueller 05/26 revealed substantial increased swelling. Chest xray with Left lower lobe infiltrate. -Continue Decadron 4 Q6 -F/U Pathology results -ABX per ID -OOB with PT -Continue keppra 500mg bid -Neurovascular checks per routine -Please page [phone] with any questions/concerns will d/w attending Dr Mueller
[2018-05-28] MEDS: TAMSULOSIN HCL 0.4 MG CAP PO SCH (08:43)
[2018-05-28] MEDS ORDERED: NAPH,MB-DB/K PH,MBDB POWDER PACKET PO ONE (09:00)
[2018-05-28] MEDS: AZITHROMYCIN IVPB 500 MG/250 ML BAG IVPB SCH (09:25)
[2018-05-28] MEDS: CEFTRIAXONE 1 GM in DEXTROSE 5%-WATER - 50 ML IVPB SCH (09:25)
[2018-05-28] MEDS: levETIRAcetam 500 MG TABLET (FP) PO SCH ×2 (09:26→21:37)
[2018-05-28] MEDS: VALSARTAN 160 MG TABLET (UD) PO SCH (09:26)
[2018-05-28] MEDS: MUPIROCIN 2% TOPICAL OINTMENT FOR DECOLONIZATION NS SCH (09:46)
--- NOTE | 2018-05-28 12:57 | PN ---
Teaching Attending Note Name of Resident: Eduardo Ledezma ATTENDING PHYSICIAN STATEMENT I saw and evaluated the patient. I reviewed the resident's note and discussed the case with the resident. I agree with the resident's findings and plan as documented. SUBJECTIVE: Pt seen and examined in the ICU. Feels better today, less headache. No nausea. OBJECTIVE: Vital Signs Period Temp Pulse Resp BP Sys/[place] Pulse Ox Last 24 Hr 97.7 F-98.9 F 68-96 18-78 99-169/54-82 98-100 Intake & Output 05/25/18 05/26/18 05/27/18 05/28/18 23:59 23:59 23:59 23:59 Intake Total 150 2050 62 Output Total 1450 1300 300 Balance -1300 750 -238 Weight 92.624 kg 91.626 kg 91.626 kg Gen: NAD in chair Heart: RRR Lung: decreased breath sounds at the bases Abd: soft, nontender Ext: no edema CBC, BMP 05/28/18 05:30 05/28/18 05:30 Active Medications Acetaminophen (Ofirmev Injection -) 1,000 mg IVPB Q6H PRN PRN Reason: PAIN LEVEL 6-10 Last Admin: 05/26/18 22:36 Dose: 1,000 mg Atorvastatin Calcium (Lipitor -) 10 mg PO HS [facility] Last Admin: 05/27/18 21:56 Dose: 10 mg Bisacodyl (Dulcolax -) 5 mg PO DAILY PRN PRN Reason: CONSTIPATION Chlorhexidine Gluconate (Hibiclens For Decolonization -) 1 applic TP HS [facility] Last Admin: 05/27/18 21:56 Dose: 1 applic Dexamethasone Sodium Phosphate (Decadron Injection -) 4 mg IVPUSH Q6H-IV [facility] Last Admin: 05/28/18 09:24 Dose: 4 mg Azithromycin (Zithromax 500mg Ivpb (Pre-Docked)) 500 mg in 250 mls @ 250 mls/ hr IVPB DAILY [facility] Last Admin: 05/28/18 09:25 Dose: 250 mls/hr Ceftriaxone Sodium 1 gm/ (Dextrose) 50 mls @ 100 mls/hr IVPB DAILY [facility]; Protocol Last Admin: 05/28/18 09:25 Dose: 100 mls/hr Levetiracetam (Keppra -) 500 mg PO BID [facility] Last Admin: 10/29/18 09:26 Dose: 500 mg Mupirocin (Bactroban Ointment (For Decolonization) -) 1 applic NS BID [facility] Stop: 05/31/18 21:59 Last Admin: 05/28/18 09:46 Dose: 1 applic Tamsulosin HCl (Flomax -) 0.4 mg PO DAILY@0830 [facility] Last Admin: 05/28/18 08:43 Dose: 0.4 mg Tobramycin Sulfate (Tobrex Ophthalmic Solution -) 1 drop OU TID [facility] Last Admin: 05/28/18 06:27 Dose: 1 drop Valsartan (Diovan -) 320 mg PO DAILY [facility] Last Admin: 05/28/18 09:26 Dose: 320 mg ASSESSMENT AND PLAN: Altered Mental Status Recent R Parietal Craniotomy for Brain Mass Cerebral Edema Pneumonia Acute Kidney Injury HTN Hyperlipidemia BPH - continue decadron - neurosurgery f/u - continue antibiotics - f/u cultures - aspiration precautions - mechanical DVT prophylaxis - can monitor on floor
--- NOTE | 2018-05-28 13:55 | PN ---
Teaching Attending Note Name of Resident: Nithin Mckeon ATTENDING PHYSICIAN STATEMENT I saw and evaluated the patient. I reviewed the resident's note and discussed the case with the resident. I agree with the resident's findings and plan as documented. SUBJECTIVE: Patient is feeling better with no acute distress. OBJECTIVE: Vital Signs Temperature 97.7 F 05/28/18 10:11 Pulse Rate 86 05/28/18 11:44 Respiratory Rate 18 05/28/18 11:44 Blood Pressure 168/82 05/28/18 11:44 O2 Sat by Pulse Oximetry (%) 98 05/28/18 08:23 GENERAL: AOX2 does not know the year NAD HEAD: NCAT,EYES: Pupils equal, round and reactive to light, extraocular movements intact, conjunctiva clear. EARS, NOSE, THROAT: Ears normal, oropharynx clear without exudates. MMM NECK: Normal range of motion, supple without lymphadenopathy, JVD, or masses. LUNGS: CTAB. No wheezes, and no crackles. No accessory muscle use. HEART: RRR, normal S1 and S2 without murmur, rub or gallop. ABDOMEN: Soft, NTND, normoactive bowel sounds, no guarding, no rebound, no masses. EXTREMITIES: 2+ pulses, warm, well-perfused. No cyanosis. NEUROLOGICAL: Cranial nerves II-XII intact. Normal speech. s/p craniotomy PSYCHIATRIC: Cooperative. Good eye contact. Appropriate mood and affect. SKIN: Warm, dry.CBCD WBC 8.2 K/mm3 (4.0-10.0) 05/28/18 05:30 RBC 3.82 M/mm3 (4.00-5.60) L 05/28/18 05:30 Hgb 11.8 GM/dL (11.7-16.9) 05/28/18 05:30 Hct 34.2 % (35.4-49) L 05/28/18 05:30 MCV 89.5 fl (80-96) 05/28/18 05:30 MCHC 34.4 g/dl (32.0-35.9) 05/28/18 05:30 RDW 14.2 % (11.9-15.9) 05/28/18 05:30 Plt Count 172 K/MM3 (134-434) 05/28/18 05:30 MPV 7.9 fl (7.5-11.1) 05/28/18 05:30 CMP Sodium 142 mmol/L (136-145) 05/28/18 05:30 Potassium 4.1 mmol/L (3.5-5.1) 05/28/18 05:30 Chloride 108 mmol/L (98-107) H 05/28/18 05:30 Carbon Dioxide 26 mmol/L (21-32) 05/28/18 05:30 Anion Gap 8 MMOL/L (8-16) 05/28/18 05:30 BUN 30 mg/dL (7-18) H 05/28/18 05:30 Creatinine 0.9 mg/dL (0.55-1.3) 05/28/18 05:30 Creat Clearance w eGFR > 60 (>60) 05/28/18 05:30 Random Glucose 113 mg/dL (74-106) H 05/28/18 05:30 Calcium 7.8 mg/dL (8.5-10.1) L 05/28/18 05:30 Total Bilirubin 0.5 mg/dL (0.2-1) 05/27/18 05:30 AST 16 U/L (15-37) 05/27/18 05:30 ALT 10 U/L (13-61) L 05/27/18 05:30 Alkaline Phosphatase 63 U/L (45-117) 05/27/18 05:30 Total Protein 5.7 g/dl (6.4-8.2) L 05/27/18 05:30 Albumin 2.6 g/dl (3.4-5.0) L 05/27/18 05:30 CARDIAC ENZYMES Troponin I 0.02 ng/ml (0.00-0.05) 05/26/18 15:40 Current Medications Generic Name Dose Route Start Last Admin Trade Name Freq PRN Reason Stop Dose Admin Acetaminophen 1,000 mg 05/26/18 21:51 05/26/18 22:36 Ofirmev Injection - IVPB 1,000 mg Q6H PRN Administration PAIN LEVEL 6-10 Atorvastatin Calcium 10 mg 05/27/18 22:00 05/27/18 21:56 Lipitor - PO 10 mg HS [facility] Administration Bisacodyl 5 mg 05/26/18 22:50 Dulcolax - PO DAILY PRN [facility] Chlorhexidine Gluconate 1 applic 05/26/18 22:00 05/27/18 21:56 Hibiclens For Decolonization - TP 1 applic HS [facility] Administration Dexamethasone Sodium Phosphate 4 mg 05/26/18 21:00 05/28/18 09:24 Decadron Injection - IVPUSH 4 mg Q6H-IV [facility] Administration Azithromycin 500 mg in 250 mls @ 250 mls/hr 05/27/18 10:00 05/28/18 09:25 Zithromax 500mg Ivpb (Pre-Docked) IVPB 250 mls/hr DAILY [facility] Administration Ceftriaxone Sodium 1 gm/ 50 mls @ 100 mls/hr 05/27/18 11:15 05/28/18 09:25 Dextrose IVPB 100 mls/hr DAILY [facility] Administration Protocol Levetiracetam 500 mg 05/27/18 10:00 05/28/18 09:26 Keppra - PO 500 mg BID [facility] Administration Mupirocin 1 applic 05/26/18 22:00 05/28/18 09:46 Bactroban Ointment (For Decolonization) - NS 05/31/18 21:59 1 applic BID [facility] Administration Tamsulosin HCl 0.4 mg 05/27/18 08:30 05/28/18 08:43 Flomax - PO 0.4 mg DAILY@0830 [facility] Administration Tobramycin Sulfate 1 drop 05/27/18 14:00 05/28/18 13:22 Tobrex Ophthalmic Solution - OU 1 drop TID [facility] Administration Valsartan 320 mg 05/27/18 10:00 05/28/18 09:26 Diovan - PO 320 mg DAILY [facility] Administration Home Medications Medication Instructions Recorded Simvastatin 20 mg PO HS 06/23/16 Tamsulosin HCl [Flomax] 0.4 mg PO DAILY 05/23/18 Olmesartan Medoxomil 40 mg PO DAILY #30 tablet 05/25/18 levETIRAcetam [Keppra -] 500 mg PO BID #60 tablet 05/25/18 Bisacodyl [Laxative] 5 mg PO ASD[facility] 05/26/18 CT: since 05/24, increasing perilesional edema and 9mm midline shift with further compression of the right lateral ventricle CXR shows possible left infiltrate ASSESSMENT AND PLAN: Patient is a 83 yo male with PMHx of HTN, HLD, Basal cell carcinoma s/p excision , admitted for right temporal lobe necrotic mass with vasogenic edema # POD #3 (05/24) for Right parietal craniotomy, excision of brain mass by , neurosx on the case. s/p dexamethasone 10mg x 1 in ED; as per neurosx to continue dexamethasone 4mg q6h, Seizure px Keppra #Generalized Weakness monitor , PT evaluation #HTN BP controlled ,will continue Diovan, and discontinue HCTZ that the patient takes at home. #HLD continue Zocor #Hx of Basal Cell carcinoma s/p excision DVT Px: SCD
--- NOTE | 2018-05-28 14:09 | PN ---
Physical Exam: SUBJECTIVE: Patient seen and examined. No acute events overnight. Pt. denies nausea, dizziness, blurry vision, weakness or numbness in extremities, fever, chills, chest pain r shortness of breath. Pt denies headache at this time. OBJECTIVE: Vital Signs Period Temp Pulse Resp BP Sys/Pendleton Pulse Ox Last 24 Hr 97.7 F-98.9 F 68-96 18-78 115-169/60-82 98-100 GENERAL: The patient is awake, alert, and fully oriented, in no acute distress, and has some aphasia EYES: PERRL, extraocular movements intact, sclera anicteric, conjunctiva clear. No ptosis. Vision present in all 4 visual quadrants ENT: Ears normal, nares patent, oropharynx with white exudates on tongue, moist mucous membranes. NECK: Trachea midline, full range of motion, supple. LUNGS: Breath sounds equal, clear to auscultation bilaterally, no wheezes, no crackles, no accessory muscle use. HEART: Regular rate and rhythm, S1, S2 without murmur, rub or gallop. ABDOMEN: Soft, nontender, nondistended, normoactive bowel sounds, no guarding, no rebound, East draining gold colored urine. EXTREMITIES: 2+ dorsal pedal pulses, warm, well-perfused, no edema. 5/5 muscle strength on right, 5/5 muscle strength on left, sensation in tact NEUROLOGICAL: Cranial nerves II through XII grossly intact. Normal speech, gait not observed. PSYCH: Confused, difficulty remembering events SKIN: Warm, dry, normal turgor, head dressing c/d/i Laboratory Results - last 24 hr 05/28/18 05/28/18 05:30 05:30 WBC 8.2 RBC 3.82 L Hgb 11.8 Hct 34.2 L MCV 89.5 MCH 30.8 MCHC 34.4 RDW 14.2 Plt Count 172 MPV 7.9 Absolute Neuts (auto) 6.8 Neutrophils % 83.0 H Lymphocytes % 11.5 Monocytes % 5.4 Eosinophils % 0.0 Basophils % 0.1 Nucleated RBC % 0 Sodium 142 Potassium 4.1 Chloride 108 H Carbon Dioxide 26 Anion Gap 8 BUN 30 H Creatinine 0.9 Creat Clearance w eGFR > 60 Random Glucose 113 H Calcium 7.8 L Phosphorus 2.4 L Magnesium 2.1 Active Medications Current Medications Acetaminophen (Ofirmev Injection -) 1,000 mg IVPB Q6H PRN PRN Reason: PAIN LEVEL 6-10 Last Admin: 05/26/18 22:36 Dose: 1,000 mg Atorvastatin Calcium (Lipitor -) 10 mg PO HS [facility] Last Admin: 05/27/18 21:56 Dose: 10 mg Bisacodyl (Dulcolax -) 5 mg PO DAILY PRN PRN Reason: CONSTIPATION Chlorhexidine Gluconate (Hibiclens For Decolonization -) 1 applic TP HS [facility] Last Admin: 05/27/18 21:56 Dose: 1 applic Dexamethasone Sodium Phosphate (Decadron Injection -) 4 mg IVPUSH Q6H-IV [facility] Last Admin: 05/28/18 09:24 Dose: 4 mg Azithromycin (Zithromax 500mg Ivpb (Pre-Docked)) 500 mg in 250 mls @ 250 mls/ hr IVPB DAILY [facility] Last Admin: 05/28/18 09:25 Dose: 250 mls/hr Ceftriaxone Sodium 1 gm/ (Dextrose) 50 mls @ 100 mls/hr IVPB DAILY [facility]; Protocol Last Admin: 05/28/18 09:25 Dose: 100 mls/hr Levetiracetam (Keppra -) 500 mg PO BID [facility] Last Admin: 05/28/18 09:26 Dose: 500 mg Mupirocin (Bactroban Ointment (For Decolonization) -) 1 applic NS BID [facility] Stop: 05/31/18 21:59 Last Admin: 05/28/18 09:46 Dose: 1 applic Tamsulosin HCl (Flomax -) 0.4 mg PO DAILY@0830 [facility] Last Admin: 05/28/18 08:43 Dose: 0.4 mg Tobramycin Sulfate (Tobrex Ophthalmic Solution -) 1 drop OU TID [facility] Last Admin: 05/28/18 13:22 Dose: 1 drop Valsartan (Diovan -) 320 mg PO DAILY [facility] Last Admin: 05/28/18 09:26 Dose: 320 mg Home Medications Medication Instructions Recorded Simvastatin 20 mg PO HS 06/23/16 Tamsulosin HCl [Flomax] 0.4 mg PO DAILY 05/23/18 Olmesartan Medoxomil 40 mg PO DAILY #30 tablet 05/25/18 levETIRAcetam [Keppra -] 500 mg PO BID #60 tablet 05/25/18 Bisacodyl [Laxative] 5 mg PO ASDIR 05/26/18 ASSESSMENT/PLAN: 83 year old with PMH of HLD, HTN, and basal cell carcinoma, who presents with generalized weakness, lethargy, decreased PO, since being discharged on s/p R parietal crani for mass biopsy/resection for necrotic brain mass, biopsy pending. Pt. is now POD 3. #Neurology -Acute Hemorrhagic/Necrotizing Encephalopathy s/p Brain mass excision and biopsy POD #3 discharged on 05/25/18, POD 3, s/p R parietal crani for mass biopsy/resection, biopsy pending. CT head: edematous w/ increased( 0.8cm --> 0.9cm) midline shift. CMP and UA unremarkable Neurosurgery consult(Dr. Ochoa) appreciated c/w decadron 4mg Q6H for edema Keppra 500mg BID. frequent neuro exam. cardiac monitoring. #Infectious Disease -R/o-ed sepsis Pt. was tachycardic to 99 BPM w/ temperature of 100.3 on re-admission CXR: mildly worsened L atelectasis CT chest prelim read atelectisis and/or consolidation RLL w/ air bronchograms, small b/l pleural effusions. f/u official read. CMP and UA unremarkable Bcx. and UCx. negative to date no leukocytosis Fever may be due to brain edema, however c/w Ceftriaxone and Azithromycin Day- 3. ID consult (Dr. Mcmahon) appreciated #Cardiology -HTN maintain MAP >65 IVF monitor I/O cardiac monitoring EKG NSR Olmesartan -HLD simvastatin 20mg #F/E/N -IV fluid NS 125cc electrolytes: replete prn nutrition: NPO #DVT Ppx SCDs hold off on AC in case of brain bleed, monitor H/H Visit type - Emergency Visit Emergency Visit: Yes ED Registration Date: 05/26/18 Care time: The patient presented to the Emergency Department on the above date and was hospitalized for further evaluation of their emergent condition. - New Patient This patient is new to me today: No - Critical Care Critical Care patient: No - Discharge Referral Referred to [facility] No
[2018-05-28] MEDS ORDERED: ACETAMINOPHEN 325 MG TABLET (FP) PO PRN (14:10)
--- NOTE | 2018-05-28 14:46 | PN ---
Physical Exam: SUBJECTIVE: Patient seen and examined the ICU. no acute events overnight. pt sitting in chair eating breakfast. talkative. denies cp, sob, CISNEROS, focal deficits OBJECTIVE: Vital Signs Period Temp Pulse Resp BP Sys/Pendleton Pulse Ox Last 24 Hr 97.7 F-98.9 F 68-96 18-78 115-169/60-82 98-100 GENERAL: Elderly male, sitting comfortably in bed, awake, alert, and fully oriented (to time, place and person but not the year), NAD HEAD: Bandages on the right posterior side, no drainage. EYES: EOM intact, no pallor or icterus. ENT: Ears normal, MMM NECK: Supple. LUNGS: CTAB HEART: RRR, S1, S2 with soft systolic murmur. ABDOMEN: Soft, NTND EXTREMITIES: 2+ pulses, warm, well-perfused, no edema. NEUROLOGICAL: No facial droop. power 5/5 in all ext. Sensation intact. Normal speech, gait not observed. PSYCH: Normal mood, normal affect. SKIN: Warm, dry, normal turgor, no rashes or lesions noted Laboratory Results - last 24 hr 05/28/18 05/28/18 05:30 05:30 WBC 8.2 RBC 3.82 L Hgb 11.8 Hct 34.2 L MCV 89.5 MCH 30.8 MCHC 34.4 RDW 14.2 Plt Count 172 MPV 7.9 Absolute Neuts (auto) 6.8 Neutrophils % 83.0 H Lymphocytes % 11.5 Monocytes % 5.4 Eosinophils % 0.0 Basophils % 0.1 Nucleated RBC % 0 Sodium 142 Potassium 4.1 Chloride 108 H Carbon Dioxide 26 Anion Gap 8 BUN 30 H Creatinine 0.9 Creat Clearance w eGFR > 60 Random Glucose 113 H Calcium 7.8 L Phosphorus 2.4 L Magnesium 2.1 Active Medications Generic Name Dose Route Start Last Admin Trade Name Freq PRN Reason Stop Dose Admin Acetaminophen 650 mg 05/28/18 14:10 Tylenol - PO Q4H PRN PAIN LEVEL 6-10 Atorvastatin Calcium 10 mg 05/27/18 22:00 05/27/18 21:56 Lipitor - PO 10 mg HS [facility] Administration Bisacodyl 5 mg 05/26/18 22:50 Dulcolax - PO DAILY PRN CONSTIPATION Chlorhexidine Gluconate 1 applic 05/26/18 22:00 05/27/18 21:56 Hibiclens For Decolonization - TP 1 applic HS [facility] Administration Dexamethasone Sodium Phosphate 4 mg 05/26/18 21:00 05/28/18 09:24 Decadron Injection - IVPUSH 4 mg Q6H-IV [facility] Administration Azithromycin 500 mg in 250 mls @ 250 mls/hr 05/27/18 10:00 05/28/18 09:25 Zithromax 500mg Ivpb (Pre-Docked) IVPB 250 mls/hr DAILY [facility] Administration Ceftriaxone Sodium 1 gm/ 50 mls @ 100 mls/hr 05/27/18 11:15 05/28/18 09:25 Dextrose IVPB 100 mls/hr DAILY [facility] Administration Protocol Levetiracetam 500 mg 05/27/18 10:00 05/28/18 09:26 Keppra - PO 500 mg BID [facility] Administration Mupirocin 1 applic 05/26/18 22:00 05/28/18 09:46 Bactroban Ointment (For Decolonization) - NS 05/31/18 21:59 1 applic BID [facility] Administration Tamsulosin HCl 0.4 mg 05/27/18 08:30 05/28/18 08:43 Flomax - PO 0.4 mg DAILY@0830 [facility] Administration Tobramycin Sulfate 1 drop 05/27/18 14:00 05/28/18 13:22 Tobrex Ophthalmic Solution - OU 1 drop TID [facility] Administration Valsartan 320 mg 05/27/18 10:00 05/28/18 09:26 Diovan - PO 320 mg DAILY [facility] Administration ASSESSMENT/PLAN: 83 year old with PMH of HLD, HTN, and basal cell carcinoma, who presents with generalized weakness, lethargy, decreased PO, since being discharged on s/p R parietal crani for mass biopsy/resection for necrotic brain mass, biopsy pending. pt is now POD 3. Neuro Brain mass (showed gliomas) s/p resection on 05/25/18-POD 4 Frozen section showed hematoma, official read pending CT head done on 05/26/18 showed Post op changes of the right temporal lobe with increasing perilesional edema and midline shift Admitted in ICU for close monitoring Mental status at baseline, no focal neurological deficits, full neuro exam normal Dr. Mast saw the patient today, diet advanced On IV Decadron 4mg Q6H IV Keppra 500mg BID for prophylaxis (no seizures noted) Frequent Neuro checks Respiratory On admission, had temp 100.3 F with CXR showing left infiltrate/atelectasis. pt has been afebrile overnight, lungs clear on auscultation but would cover for CAP with IV ceftriaxone and IV azithromycin Blood cultures/urine cultures neg for 24hr Urine for legionella ag sent. There was concern for meningitis on admission, however, it is unlikely given no temp since admission in ICU, mental status at baseline and patient is hemodynamically stable. LP is contraindicated given the midline shift on Head CT. Appreciate ID consult Cardio Hypertension-stable Continue Valsartan 320mg PO Hyperlipidemia: Continue Statin 10mg Heme/Renal- no acute issues FEN Stopped IV fluids, tolerating PO Electrolytes: WNL Sodium controlled diet Prophylaxis For DVT: Scds, heparin on hold due to recent surgery and possibility of brain bleed For GI: Not indicated Dispo: pt is stable and improving. pt can be transferred and monitored on the floors. Further care per primary team/PCP Visit type - Emergency Visit Emergency Visit: Yes ED Registration Date: 05/26/18 Care time: The patient presented to the Emergency Department on the above date and was hospitalized for further evaluation of their emergent condition. - New Patient This patient is new to me today: Yes Date on this admission: 05/28/18 - Critical Care Critical Care patient: Yes Total Critical Care Time (in minutes): 35 Critical Care Statement: The care of this patient involved high complexity decision making to prevent further life threatening deterioration of the patient 's condition and/or to evaluate & treat vital organ system(s) failure or risk of failure.
--- NOTE | 2018-05-28 14:59 | PN ---
Progress Note, Physician History of Present Illness: feeling much better no complaints weakness - Current Medication List Current Medications: Active Medications Acetaminophen (Tylenol -) 650 mg PO Q4H PRN PRN Reason: PAIN LEVEL 6-10 Atorvastatin Calcium (Lipitor -) 10 mg PO HS [facility] Last Admin: 05/27/18 21:56 Dose: 10 mg Bisacodyl (Dulcolax -) 5 mg PO DAILY PRN PRN Reason: CONSTIPATION Chlorhexidine Gluconate (Hibiclens For Decolonization -) 1 applic TP HS [facility] Last Admin: 05/27/18 21:56 Dose: 1 applic Dexamethasone Sodium Phosphate (Decadron Injection -) 4 mg IVPUSH Q6H-IV [facility] Last Admin: 05/28/18 09:24 Dose: 4 mg Azithromycin (Zithromax 500mg Ivpb (Pre-Docked)) 500 mg in 250 mls @ 250 mls/ hr IVPB DAILY [facility] Last Admin: 05/28/18 09:25 Dose: 250 mls/hr Ceftriaxone Sodium 1 gm/ (Dextrose) 50 mls @ 100 mls/hr IVPB DAILY [facility]; Protocol Last Admin: 05/28/18 09:25 Dose: 100 mls/hr Levetiracetam (Keppra -) 500 mg PO BID [facility] Last Admin: 05/28/18 09:26 Dose: 500 mg Mupirocin (Bactroban Ointment (For Decolonization) -) 1 applic NS BID [facility] Stop: 05/31/18 21:59 Last Admin: 05/28/18 09:46 Dose: 1 applic Tamsulosin HCl (Flomax -) 0.4 mg PO DAILY@0830 [facility] Last Admin: 05/28/18 08:43 Dose: 0.4 mg Tobramycin Sulfate (Tobrex Ophthalmic Solution -) 1 drop OU TID [facility] Last Admin: 05/28/18 13:22 Dose: 1 drop Valsartan (Diovan -) 320 mg PO DAILY [facility] Last Admin: 05/28/18 09:26 Dose: 320 mg - Objective Vital Signs: Vital Signs Temperature 98 F 05/28/18 13:00 Pulse Rate 78 05/28/18 13:00 Respiratory Rate 21 H 05/28/18 13:00 Blood Pressure 134/78 05/28/18 13:00 O2 Sat by Pulse Oximetry (%) 98 05/28/18 08:23 Constitutional: Yes: No Distress, Calm Neck: Yes: Supple, Trachea Midline Cardiovascular: Yes: Regular Rate and Rhythm Respiratory: Yes: Regular, CTA Bilaterally Gastrointestinal: Yes: Normal Bowel Sounds, Soft Musculoskeletal: Yes: WNL Extremities: Yes: WNL Wound/Incision: Yes: Dressing Dry and Intact Neurological: Yes: Alert, Oriented Psychiatric: Yes: Alert, Oriented Labs: CBC, BMP 05/28/18 05:30 05/28/18 05:30 INR, PTT INR 1.11 (0.83-1.09) H 05/26/18 14:38 Assessment/Plan Problem List - Problems (1) Altered mental status Code(s): R41.82 - ALTERED MENTAL STATUS, UNSPECIFIED (2) Confusion Code(s): R41.0 - DISORIENTATION, UNSPECIFIED (3) HLD (hyperlipidemia) Code(s): E78.5 - HYPERLIPIDEMIA, UNSPECIFIED Qualifiers: Hyperlipidemia type: unspecified Qualified Code(s): E78.5 - Hyperlipidemia , unspecified (4) HTN (hypertension) Code(s): I10 - ESSENTIAL (PRIMARY) HYPERTENSION Qualifiers: Hypertension type: essential hypertension Qualified Code(s): I10 - Essential (primary) hypertension (5) Intracranial mass Code(s): R90.0 - INTCRN SPACE-OCCUPYING LESION FOUND ON DX IMAGING OF CNSL Assessment/Plan 83 y.o. male with PMH of HTN, HLD, Basal cell CA, with necrotic brain mass s/p Rt parietal craniectomy/mass resection/biopsy on 05/24/18 presenting with weakness, decreased oral intake, lethargy and noted to have low grade fevers Fever - infectious vs inflammatory Possible PNA Brain mass s/p resection/biopsy - results pending Cerebral Edema with midline shift doing well plan continue abx we will complete a 5 day course physio rest as per the team patient doing well
[2018-05-28] MEDS: ATORVASTATIN CA 10 MG TABLET (FP) PO SCH (21:37)
[2018-05-28] MEDS ORDERED: MELATONIN 5 MG TABLETS PO ONE (23:37)
[2018-05-29] MEDS: DEXAMETHASONE SOD PHOSPHATE 4 MG/1 ML VIAL IVPUSH SCH ×4 (02:24→21:23)
[2018-05-29] MEDS: TOBRAMYCIN 0.3% OPHTH SOLN 5 ML BOTTLE OU SCH ×3 (05:54→21:24)
[2018-05-29 08:06] LABS: HEMATOCRIT 34.2 % (35.4-49); HEMOGLOBIN 11.8 GM/dL (11.7-16.9); MCH 30.6 pg (25.7-33.7); MCHC 34.5 g/dl (32.0-35.9); MEAN CELL VOLUME 88.6 fl (80-96); MEAN PLT VOLUME 7.6 fl (7.5-11.1); PLATELET COUNT 175 K/MM3 (134-434); RBC 3.86 M/mm3 (4.00-5.60); RDW 13.8 % (11.9-15.9); WHITE BLOOD COUNT 6.1 K/mm3 (4.0-10.0)
[2018-05-29 08:25] LABS: ANION GAP 6 MMOL/L (8-16); BLOOD UREA NITROGEN 32 mg/dL (7-18); CALCIUM 8.3 mg/dL (8.5-10.1); CHLORIDE 107 mmol/L (98-107); CO2 25 mmol/L (21-32); CREATININE 0.9 mg/dL (0.55-1.3); GLUCOSE,RANDOM 125 mg/dL (74-106); MAGNESIUM 2.4 mg/dL (1.8-2.4); PHOSPHOROUS 3.7 mg/dL (2.5-4.9); POTASSIUM 4.1 mmol/L (3.5-5.1); SODIUM 138 mmol/L (136-145)
[2018-05-29] MEDS: TAMSULOSIN HCL 0.4 MG CAP PO SCH (09:00)
[2018-05-29] MEDS ORDERED: DEXTROSE 5%-WATER - 50 ML IVPB ONE (09:22)
[2018-05-29] MEDS ORDERED: cefTRIAXone SODIUM 1 GM VIAL ONE (09:22)
[2018-05-29] MEDS: levETIRAcetam 500 MG TABLET (FP) PO SCH ×2 (09:37→21:23)
[2018-05-29] MEDS: VALSARTAN 160 MG TABLET (UD) PO SCH (09:37)
[2018-05-29] MEDS: PANTOPRAZOLE SODIUM 40 MG VIAL IVPUSH SCH (09:43)
[2018-05-29] MEDS: CEFTRIAXONE 1 GM in DEXTROSE 5%-WATER - 50 ML IVPB SCH (09:47)
[2018-05-29] MEDS: AZITHROMYCIN IVPB 500 MG/250 ML BAG IVPB SCH (11:12)
[2018-05-29] MEDS: BISACODYL 5 MG TABLET.DR (FP) PO PRN (11:12)
--- NOTE | 2018-05-29 11:22 | PN ---
Progress Note (short form) - Note Progress Note: Patient remains Neurologically stable with Left hemiparesis. Patient with reasonable strength on confrontational exam, however, has difficulty bearing weight on Left. -Dr. Philippe consultation appreciated -May elevate Decadron to 6mg IV Q6 -GI/DVT prophylaxis -Physical Therapy -Continue dry dressing on scalp -Check Pathology -Case discussed with daughter If patient does not improve with increased Decadron dose, will consider repeat non-contrast Head CT
--- NOTE | 2018-05-29 13:37 | PN ---
Progress Note, Physician History of Present Illness: patient doing well awake alert says he feels much better starting to tolerate diet energy coming back - Current Medication List Current Medications: Active Medications Acetaminophen (Tylenol -) 650 mg PO Q4H PRN PRN Reason: PAIN LEVEL 6-10 Atorvastatin Calcium (Lipitor -) 10 mg PO HS [facility] Last Admin: 05/28/18 21:37 Dose: 10 mg Bisacodyl (Dulcolax -) 5 mg PO DAILY PRN PRN Reason: CONSTIPATION Last Admin: 05/29/18 11:12 Dose: 5 mg Dexamethasone Sodium Phosphate (Decadron Injection -) 6 mg IVPUSH Q6H-IV [facility] Last Admin: 05/29/18 09:37 Dose: 6 mg Azithromycin (Zithromax 500mg Ivpb (Pre-Docked)) 500 mg in 250 mls @ 250 mls/ hr IVPB DAILY [facility] Last Admin: 05/29/18 11:12 Dose: 250 mls/hr Ceftriaxone Sodium 1 gm/ (Dextrose) 50 mls @ 100 mls/hr IVPB DAILY [facility]; Protocol Last Admin: 05/29/18 09:47 Dose: 100 mls/hr Levetiracetam (Keppra -) 500 mg PO BID [facility] Last Admin: 05/29/18 09:37 Dose: 500 mg Pantoprazole Sodium (Protonix Iv) 40 mg IVPUSH DAILY [facility] Last Admin: 05/29/18 09:43 Dose: 40 mg Tamsulosin HCl (Flomax -) 0.4 mg PO DAILY@0830 [facility] Last Admin: 05/29/18 09:00 Dose: 0.4 mg Tobramycin Sulfate (Tobrex Ophthalmic Solution -) 1 drop OU TID [facility] Last Admin: 05/29/18 05:54 Dose: 1 drop Valsartan (Diovan -) 320 mg PO DAILY [facility] Last Admin: 05/29/18 09:37 Dose: 320 mg - Objective Vital Signs: Vital Signs Temperature 97.2 F L 05/29/18 10:00 Pulse Rate 62 05/29/18 10:00 Respiratory Rate 18 05/29/18 10:00 Blood Pressure 156/81 05/29/18 10:00 O2 Sat by Pulse Oximetry (%) 98 05/28/18 21:00 Constitutional: Yes: No Distress, Calm Cardiovascular: Yes: Regular Rate and Rhythm Respiratory: Yes: Regular, CTA Bilaterally Gastrointestinal: Yes: Normal Bowel Sounds, Soft Musculoskeletal: Yes: WNL Extremities: Yes: WNL Wound/Incision: Yes: Dressing Dry and Intact Neurological: Yes: Alert, Oriented Psychiatric: Yes: Alert, Oriented Labs: CBC, BMP 05/29/18 07:40 05/29/18 07:40 INR, PTT INR 1.11 (0.83-1.09) H 05/26/18 14:38 Assessment/Plan Problem List - Problems (1) Altered mental status Code(s): R41.82 - ALTERED MENTAL STATUS, UNSPECIFIED (2) Confusion Code(s): R41.0 - DISORIENTATION, UNSPECIFIED (3) HLD (hyperlipidemia) Code(s): E78.5 - HYPERLIPIDEMIA, UNSPECIFIED Qualifiers: Hyperlipidemia type: unspecified Qualified Code(s): E78.5 - Hyperlipidemia , unspecified (4) HTN (hypertension) Code(s): I10 - ESSENTIAL (PRIMARY) HYPERTENSION Qualifiers: Hypertension type: essential hypertension Qualified Code(s): I10 - Essential (primary) hypertension (5) Intracranial mass Code(s): R90.0 - INTCRN SPACE-OCCUPYING LESION FOUND ON DX IMAGING OF CNSL Assessment/Plan 83 y.o. male with PMH of HTN, HLD, Basal cell CA, with necrotic brain mass s/p Rt parietal craniectomy/mass resection/biopsy on 05/24/18 presenting with weakness, decreased oral intake, lethargy and noted to have low grade fevers Fever - infectious vs inflammatory Possible PNA Brain mass s/p resection/biopsy - results pending Cerebral Edema with midline shift plan continue current mgmt will stop zithro after 5 days rest continue current mgmt wound care as per neurosurgery
--- NOTE | 2018-05-29 14:07 | PN ---
Physical Exam: SUBJECTIVE: Patient seen and examined. Pt. denies BM for 2-3 days, says usually has BMs every few days. Pt. asking for assistance to use bathroom. Per nurse Pt. very weak upon standing and unable to ambulate to BM without assistance of at least 2 nurses. Pt. advised to use urinal and to work with physical therapy. East removed yesterday. OBJECTIVE: Vital Signs Period Temp Pulse Resp BP Sys/Pendleton Pulse Ox Last 24 Hr 97.1 F-98.5 F 59-75 17-20 112-156/63-86 98 GENERAL: The patient is awake, alert, and fully oriented, in no acute distress EYES: PERRL, extraocular movements intact, sclera anicteric, conjunctiva clear. No ptosis. Vision present in all 4 visual quadrants ENT: Ears normal, nares patent, oropharynx with white exudates on tongue, moist mucous membranes. LUNGS: Breath sounds equal, clear to auscultation bilaterally, no wheezes, no crackles, no accessory muscle use. HEART: Regular rate and rhythm, S1, S2 without murmur, rub or gallop. ABDOMEN: Soft, nontender, nondistended, normoactive bowel sounds, no guarding, no rebound EXTREMITIES: 2+ dorsal pedal pulses, warm, well-perfused, no edema. 5/5 muscle strength on right, 5/5 muscle strength on left, sensation in tact NEUROLOGICAL: Cranial nerves II through XII grossly intact. Normal speech, gait not observed. PSYCH: Confused, difficulty remembering events SKIN: Warm, dry, normal turgor, head dressing c/d/i Laboratory Results - last 24 hr 05/29/18 05/29/18 07:40 07:40 WBC 6.1 RBC 3.86 L Hgb 11.8 Hct 34.2 L MCV 88.6 MCH 30.6 MCHC 34.5 RDW 13.8 Plt Count 175 MPV 7.6 Sodium 138 Potassium 4.1 Chloride 107 Carbon Dioxide 25 Anion Gap 6 L BUN 32 H Creatinine 0.9 Creat Clearance w eGFR > 60 Random Glucose 125 H Calcium 8.3 L Phosphorus 3.7 Magnesium 2.4 Active Medications Current Medications Acetaminophen (Tylenol -) 650 mg PO Q4H PRN PRN Reason: PAIN LEVEL 6-10 Atorvastatin Calcium (Lipitor -) 10 mg PO HS [facility] Last Admin: 05/28/18 21:37 Dose: 10 mg Bisacodyl (Dulcolax -) 5 mg PO DAILY PRN PRN Reason: CONSTIPATION Last Admin: 05/29/18 11:12 Dose: 5 mg Dexamethasone Sodium Phosphate (Decadron Injection -) 6 mg IVPUSH Q6H-IV [facility] Last Admin: 05/29/18 09:37 Dose: 6 mg Azithromycin (Zithromax 500mg Ivpb (Pre-Docked)) 500 mg in 250 mls @ 250 mls/ hr IVPB DAILY [facility] Last Admin: 05/29/18 11:12 Dose: 250 mls/hr Ceftriaxone Sodium 1 gm/ (Dextrose) 50 mls @ 100 mls/hr IVPB DAILY [facility]; Protocol Last Admin: 05/29/18 09:47 Dose: 100 mls/hr Levetiracetam (Keppra -) 500 mg PO BID [facility] Last Admin: 05/29/18 09:37 Dose: 500 mg Pantoprazole Sodium (Protonix Iv) 40 mg IVPUSH DAILY [facility] Last Admin: 05/29/18 09:43 Dose: 40 mg Tamsulosin HCl (Flomax -) 0.4 mg PO DAILY@0830 [facility] Last Admin: 05/29/18 09:00 Dose: 0.4 mg Tobramycin Sulfate (Tobrex Ophthalmic Solution -) 1 drop OU TID [facility] Last Admin: 05/29/18 05:54 Dose: 1 drop Valsartan (Diovan -) 320 mg PO DAILY [facility] Last Admin: 05/29/18 09:37 Dose: 320 mg Home Medications Medication Instructions Recorded Simvastatin 20 mg PO HS 06/23/16 Tamsulosin HCl [Flomax] 0.4 mg PO DAILY 05/23/18 Olmesartan Medoxomil 40 mg PO DAILY #30 tablet 05/25/18 levETIRAcetam [Keppra -] 500 mg PO BID #60 tablet 05/25/18 Bisacodyl [Laxative] 5 mg PO ASDIR 05/26/18 ASSESSMENT/PLAN: 83 year old with PMH of HLD, HTN, and basal cell carcinoma, who presents with generalized weakness, lethargy, decreased PO, since being discharged on s/p R parietal crani for mass biopsy/resection for necrotic brain mass, biopsy pending. Pt. is now POD 4. #Neurology -Acute Hemorrhagic/Necrotizing Encephalopathy s/p Brain mass excision and biopsy POD #4 f/u MRI w/wo contrast- Assessing for increase enhancement and residual edema discharged on 05/25/18, POD 3, s/p R parietal crani for mass biopsy/resection, biopsy pending. Path report from biopsy showed Low-grade tumor (which is characteristically unlikely to cause hemorrhage) vs. vascular malformation. CT head: edematous w/ increased( 0.8cm --> 0.9cm) midline shift. CMP and UA unremarkable Neurosurgery consult(Dr. Ochoa) appreciated Increased decadron to 6mg Q6H for edema c/w Keppra 500mg BID. frequent neuro exam. cardiac monitoring #Infectious Disease -R/o-ed sepsis Pt. was tachycardic to 99 BPM w/ temperature of 100.3 on re-admission CXR: mildly worsened L atelectasis CT chest prelim read atelectisis and/or consolidation RLL w/ air bronchograms, small b/l pleural effusions CMP and UA unremarkable Bcx. and UCx. negative to date No leukocytosis Fever may be due to brain edema, however c/w Azithromycin Day-4, will D/c Azithromycin 05/30/18. D/C-ed Ceftriaxone ID consult (Dr. Mcmahon) appreciated #Cardiology -HTN maintain MAP >65 IVF monitor I/O cardiac monitoring EKG NSR Olmesartan -HLD simvastatin 20mg #F/E/N -D/c IVF, encourage PO intake. electrolytes: replete prn nutrition: Na restricted diet. #Ppx -DVT SCDs hold off on AC in case of brain bleed, monitor H/H -GI Protonix 40mg IVP Daily Visit type - Emergency Visit Emergency Visit: Yes ED Registration Date: 05/26/18 Care time: The patient presented to the Emergency Department on the above date and was hospitalized for further evaluation of their emergent condition. - New Patient This patient is new to me today: No - Critical Care Critical Care patient: No - Discharge Referral Referred to [facility] No
--- NOTE | 2018-05-29 14:23 | PN ---
Teaching Attending Note Name of Resident: Nithin Mckeon ATTENDING PHYSICIAN STATEMENT I saw and evaluated the patient. I reviewed the resident's note and discussed the case with the resident. I agree with the resident's findings and plan as documented. SUBJECTIVE: Patient is comfortable but is feeling weak. no headache, no nausea or vomiting. OBJECTIVE: Vital Signs Temperature 97.2 F L 05/29/18 10:00 Pulse Rate 62 05/29/18 10:00 Respiratory Rate 18 05/29/18 10:00 Blood Pressure 156/81 05/29/18 10:00 O2 Sat by Pulse Oximetry (%) 98 05/28/18 21:00 GENERAL: AOX2 does not know the year NAD HEAD: NCAT,EYES: Pupils equal, round and reactive to light, extraocular movements intact, conjunctiva clear. EARS, NOSE, THROAT: Ears normal, oropharynx clear without exudates. MMM NECK: Normal range of motion, supple without lymphadenopathy, JVD, or masses. LUNGS: CTAB. No wheezes, and no crackles. No accessory muscle use. HEART: RRR, normal S1 and S2 positive , no murmur, rub or gallop. ABDOMEN: Soft, NT, ND, normoactive bowel sounds, no guarding, no rebound, no masses. EXTREMITIES: 2+ pulses, warm, well-perfused. No cyanosis. NEUROLOGICAL: Cranial nerves II-XII intact. Normal speech. s/p craniotomy PSYCHIATRIC: Cooperative. Good eye contact. Appropriate mood and affect. SKIN: Warm, dry. CBCD WBC 6.1 K/mm3 (4.0-10.0) 05/29/18 07:40 RBC 3.86 M/mm3 (4.00-5.60) L 05/29/18 07:40 Hgb 11.8 GM/dL (11.7-16.9) 05/29/18 07:40 Hct 34.2 % (35.4-49) L 05/29/18 07:40 MCV 88.6 fl (80-96) 05/29/18 07:40 MCHC 34.5 g/dl (32.0-35.9) 05/29/18 07:40 RDW 13.8 % (11.9-15.9) 05/29/18 07:40 Plt Count 175 K/MM3 (134-434) 05/29/18 07:40 MPV 7.6 fl (7.5-11.1) 05/29/18 07:40 CMP Sodium 138 mmol/L (136-145) 05/29/18 07:40 Potassium 4.1 mmol/L (3.5-5.1) 05/29/18 07:40 Chloride 107 mmol/L (98-107) 05/29/18 07:40 Carbon Dioxide 25 mmol/L (21-32) 05/29/18 07:40 Anion Gap 6 MMOL/L (8-16) L 05/29/18 07:40 BUN 32 mg/dL (7-18) H 05/29/18 07:40 Creatinine 0.9 mg/dL (0.55-1.3) 05/29/18 07:40 Creat Clearance w eGFR > 60 (>60) 05/29/18 07:40 Random Glucose 125 mg/dL (74-106) H 05/29/18 07:40 Calcium 8.3 mg/dL (8.5-10.1) L 05/29/18 07:40 Total Bilirubin 0.5 mg/dL (0.2-1) 05/27/18 05:30 AST 16 U/L (15-37) 05/27/18 05:30 ALT 10 U/L (13-61) L 05/27/18 05:30 Alkaline Phosphatase 63 U/L (45-117) 05/27/18 05:30 Total Protein 5.7 g/dl (6.4-8.2) L 05/27/18 05:30 Albumin 2.6 g/dl (3.4-5.0) L 05/27/18 05:30 CARDIAC ENZYMES Troponin I 0.02 ng/ml (0.00-0.05) 05/26/18 15:40 Current Medications Generic Name Dose Route Start Last Admin Trade Name Freq PRN Reason Stop Dose Admin Acetaminophen 650 mg 05/28/18 14:10 Tylenol - PO Q4H PRN PAIN LEVEL 6-10 Atorvastatin Calcium 10 mg 05/28/18 22:00 05/28/18 21:37 Lipitor - PO 10 mg HS [facility] Administration Bisacodyl 5 mg 05/28/18 15:11 05/29/18 11:12 Dulcolax - PO 5 mg DAILY PRN Administration CONSTIPATION Dexamethasone Sodium Phosphate 6 mg 05/29/18 08:19 05/29/18 09:37 Decadron Injection - IVPUSH 6 mg Q6H-IV [facility] Administration Azithromycin 500 mg in 250 mls @ 250 mls/hr 05/29/18 10:00 05/29/18 11:12 Zithromax 500mg Ivpb (Pre-Docked) IVPB 250 mls/hr DAILY [facility] Administration Ceftriaxone Sodium 1 gm/ 50 mls @ 100 mls/hr 05/29/18 10:00 05/29/18 09:47 Dextrose IVPB 100 mls/hr DAILY [facility] Administration Protocol Levetiracetam 500 mg 05/28/18 22:00 05/29/18 09:37 Keppra - PO 500 mg BID [facility] Administration Pantoprazole Sodium 40 mg 05/29/18 10:00 05/29/18 09:43 Protonix Iv IVPUSH 40 mg DAILY [facility] Administration Tamsulosin HCl 0.4 mg 05/29/18 08:30 05/29/18 09:00 Flomax - PO 0.4 mg DAILY@0830 [facility] Administration Tobramycin Sulfate 1 drop 05/28/18 22:00 05/29/18 14:07 Tobrex Ophthalmic Solution - OU 1 drop TID [facility] Administration Valsartan 320 mg 05/29/18 10:00 05/29/18 09:37 Diovan - PO 320 mg DAILY [facility] Administration Home Medications Medication Instructions Recorded Simvastatin 20 mg PO HS 06/23/16 Tamsulosin HCl [Flomax] 0.4 mg PO DAILY 05/23/18 Olmesartan Medoxomil 40 mg PO DAILY #30 tablet 05/25/18 levETIRAcetam [Keppra -] 500 mg PO BID #60 tablet 05/25/18 Bisacodyl [Laxative] 5 mg PO ASDIR 05/26/18 CT: since 05/24, increasing perilesional edema and 9mm midline shift with further compression of the right lateral ventricle CXR shows possible left infiltrate ASSESSMENT AND PLAN: Patient is a 83 yo male with PMHx of HTN, HLD, Basal cell carcinoma s/p excision , 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 Lubin, neurosx on the case. As per neurosx to continue dexamethasone 6mg q6h, Seizure px Keppra continue. Patient has increased brain edema, as per neuro continue decadron #Generalized Weakness monitor , PT evaluation #HTN BP controlled ,will continue Diovan, and discontinue HCTZ that the patient takes at home. #HLD continue Zocor #Hx of Basal Cell carcinoma s/p excision DVT Px: SCD continue decadron, prepare to rehab, possible [facility]
[2018-05-29] MEDS: ATORVASTATIN CA 10 MG TABLET (FP) PO SCH (21:24)
[2018-05-30] MEDS: DEXAMETHASONE SOD PHOSPHATE 4 MG/1 ML VIAL IVPUSH SCH ×4 (02:51→20:46)
[2018-05-30] MEDS: TOBRAMYCIN 0.3% OPHTH SOLN 5 ML BOTTLE OU SCH ×3 (06:15→21:06)
[2018-05-30 07:29] LABS: BASO % 0.1 % (0-2.0); HEMATOCRIT 35.3 % (35.4-49); HEMOGLOBIN 12.2 GM/dL (11.7-16.9); LYMPH % 14.1 % (8-40); MCH 30.4 pg (25.7-33.7); MCHC 34.5 g/dl (32.0-35.9); MEAN CELL VOLUME 88.1 fl (80-96); MEAN PLT VOLUME 7.5 fl (7.5-11.1); MONO % 5.2 % (3.8-10.2); NEUT % 80.6 % (42.8-82.8); PLATELET COUNT 165 K/MM3 (134-434); WHITE BLOOD COUNT 5.9 K/mm3 (4.0-10.0)
[2018-05-30 07:52] LABS: ANION GAP 6 MMOL/L (8-16); BLOOD UREA NITROGEN 33 mg/dL (7-18); CALCIUM 8.2 mg/dL (8.5-10.1); CHLORIDE 106 mmol/L (98-107); CO2 26 mmol/L (21-32); GLUCOSE,RANDOM 115 mg/dL (74-106); MAGNESIUM 2.3 mg/dL (1.8-2.4); PHOSPHOROUS 3.4 mg/dL (2.5-4.9); POTASSIUM 4.1 mmol/L (3.5-5.1); SODIUM 137 mmol/L (136-145)
[2018-05-30] MEDS: TAMSULOSIN HCL 0.4 MG CAP PO SCH (08:24)
[2018-05-30] MEDS ORDERED: DEXTROSE 5%-WATER - 50 ML IVPB ONE (10:09)
[2018-05-30] MEDS ORDERED: cefTRIAXone SODIUM 1 GM VIAL ONE (10:09)
[2018-05-30] MEDS: PANTOPRAZOLE SODIUM 40 MG VIAL IVPUSH SCH (10:32)
[2018-05-30] MEDS: levETIRAcetam 500 MG TABLET (FP) PO SCH ×2 (10:32→21:05)
[2018-05-30] MEDS: VALSARTAN 160 MG TABLET (UD) PO SCH (10:33)
[2018-05-30] MEDS: CEFTRIAXONE 1 GM in DEXTROSE 5%-WATER - 50 ML IVPB SCH (10:36)
[2018-05-30] MEDS: AZITHROMYCIN IVPB 500 MG/250 ML BAG IVPB SCH (11:15)
--- NOTE | 2018-05-30 11:25 | PN ---
Progress Note, Physician History of Present Illness: patient doing well no issues daughter in room - Current Medication List Current Medications: Active Medications Acetaminophen (Tylenol -) 650 mg PO Q4H PRN PRN Reason: PAIN LEVEL 6-10 Atorvastatin Calcium (Lipitor -) 10 mg PO HS [facility] Last Admin: 05/29/18 21:24 Dose: 10 mg Bisacodyl (Dulcolax -) 5 mg PO DAILY PRN PRN Reason: CONSTIPATION Last Admin: 05/29/18 11:12 Dose: 5 mg Dexamethasone Sodium Phosphate (Decadron Injection -) 6 mg IVPUSH Q6H-IV [facility] Last Admin: 05/30/18 08:24 Dose: 6 mg Azithromycin (Zithromax 500mg Ivpb (Pre-Docked)) 500 mg in 250 mls @ 250 mls/ hr IVPB DAILY [facility] Last Admin: 05/30/18 11:15 Dose: 250 mls/hr Ceftriaxone Sodium 1 gm/ (Dextrose) 50 mls @ 100 mls/hr IVPB DAILY [facility]; Protocol Last Admin: 05/30/18 10:36 Dose: 100 mls/hr Levetiracetam (Keppra -) 500 mg PO BID [facility] Last Admin: 05/30/18 10:32 Dose: 500 mg Pantoprazole Sodium (Protonix Iv) 40 mg IVPUSH DAILY [facility] Last Admin: 05/30/18 10:32 Dose: 40 mg Tamsulosin HCl (Flomax -) 0.4 mg PO DAILY@0830 [facility] Last Admin: 05/30/18 08:24 Dose: 0.4 mg Tobramycin Sulfate (Tobrex Ophthalmic Solution -) 1 drop OU TID [facility] Last Admin: 05/30/18 06:15 Dose: 1 drop Valsartan (Diovan -) 320 mg PO DAILY [facility] Last Admin: 05/30/18 10:33 Dose: 320 mg - Objective Vital Signs: Vital Signs Temperature 98.0 F 05/30/18 09:45 Pulse Rate 82 05/30/18 09:45 Respiratory Rate 18 05/30/18 09:45 Blood Pressure 153/88 05/30/18 09:45 O2 Sat by Pulse Oximetry (%) 94 L 05/29/18 21:00 Constitutional: Yes: No Distress, Calm Cardiovascular: Yes: Regular Rate and Rhythm Respiratory: Yes: Regular, CTA Bilaterally Gastrointestinal: Yes: Normal Bowel Sounds, Soft Musculoskeletal: Yes: WNL Extremities: Yes: WNL Wound/Incision: Yes: Dressing Dry and Intact Neurological: Yes: Alert, Oriented Psychiatric: Yes: Alert, Oriented Labs: CBC, BMP 05/30/18 07:00 05/30/18 07:00 INR, PTT INR 1.11 (0.83-1.09) H 05/26/18 14:38 Assessment/Plan Problem List - Problems (1) Altered mental status Code(s): R41.82 - ALTERED MENTAL STATUS, UNSPECIFIED (2) Confusion Code(s): R41.0 - DISORIENTATION, UNSPECIFIED (3) HLD (hyperlipidemia) Code(s): E78.5 - HYPERLIPIDEMIA, UNSPECIFIED Qualifiers: Hyperlipidemia type: unspecified Qualified Code(s): E78.5 - Hyperlipidemia , unspecified (4) HTN (hypertension) Code(s): I10 - ESSENTIAL (PRIMARY) HYPERTENSION Qualifiers: Hypertension type: essential hypertension Qualified Code(s): I10 - Essential (primary) hypertension (5) Intracranial mass Code(s): R90.0 - INTCRN SPACE-OCCUPYING LESION FOUND ON DX IMAGING OF CNSL Assessment/Plan 83 y.o. male with PMH of HTN, HLD, Basal cell CA, with necrotic brain mass s/p Rt parietal craniectomy/mass resection/biopsy on 05/24/18 presenting with weakness, decreased oral intake, lethargy and noted to have low grade fevers Fever - infectious vs inflammatory Possible PNA Brain mass s/p resection/biopsy - results pending Cerebral Edema with midline shift plan continue current mgmt will stop zithro after 5 days rest continue current mgmt wound care as per neurosurgery
--- NOTE | 2018-05-30 12:14 | PN ---
Physical Exam: SUBJECTIVE: Patient seen and examined. No acute events overnight. Pt. denies any complaints at this time. OBJECTIVE: Vital Signs Period Temp Pulse Resp BP Sys/Pendleton Pulse Ox Last 24 Hr 97.6 F-98.3 F 59-82 18-18 121-153/70-88 94 GENERAL: The patient is awake, alert, and fully oriented, in no acute distress. HEAD: Normal with no signs of trauma, incision c/d/i EYES: PERRL, extraocular movements intact, sclera anicteric, conjunctiva clear. No ptosis. ENT: Ears normal, nares patent, oropharynx clear without exudates, moist mucous membranes. LUNGS: Breath sounds equal, clear to auscultation bilaterally, no wheezes, no crackles, no accessory muscle use. HEART: Regular rate and rhythm, S1, S2 without murmur, rub or gallop. ABDOMEN: Soft, nontender, nondistended, normoactive bowel sounds, no guarding, no rebound, no hepatosplenomegaly, no masses. EXTREMITIES: 2+ dorsal pedal pulses, no calf tenderness, warm, well-perfused, no edema. NEUROLOGICAL: Cranial nerves II through XII grossly intact. Normal speech, gait not observed. PSYCH: Normal mood, normal affect. SKIN: Warm, dry, normal turgor Laboratory Results - last 24 hr 05/30/18 05/30/18 07:00 07:00 WBC 5.9 RBC 4.00 Hgb 12.2 Hct 35.3 L MCV 88.1 MCH 30.4 MCHC 34.5 RDW 14.0 Plt Count 165 MPV 7.5 Absolute Neuts (auto) 4.8 Neutrophils % 80.6 Lymphocytes % 14.1 D Monocytes % 5.2 Eosinophils % 0.0 Basophils % 0.1 Nucleated RBC % 0 Sodium 137 Potassium 4.1 Chloride 106 Carbon Dioxide 26 Anion Gap 6 L BUN 33 H Creatinine 1.0 Creat Clearance w eGFR > 60 Random Glucose 115 H Calcium 8.2 L Phosphorus 3.4 Magnesium 2.3 Active Medications Current Medications Acetaminophen (Tylenol -) 650 mg PO Q4H PRN PRN Reason: PAIN LEVEL 6-10 Atorvastatin Calcium (Lipitor -) 10 mg PO HS [facility] Last Admin: 05/29/18 21:24 Dose: 10 mg Bisacodyl (Dulcolax -) 5 mg PO DAILY PRN PRN Reason: CONSTIPATION Last Admin: 05/29/18 11:12 Dose: 5 mg Dexamethasone Sodium Phosphate (Decadron Injection -) 6 mg IVPUSH Q6H-IV [facility] Last Admin: 05/30/18 08:24 Dose: 6 mg Azithromycin (Zithromax 500mg Ivpb (Pre-Docked)) 500 mg in 250 mls @ 250 mls/ hr IVPB DAILY [facility] Last Admin: 05/30/18 11:15 Dose: 250 mls/hr Ceftriaxone Sodium 1 gm/ (Dextrose) 50 mls @ 100 mls/hr IVPB DAILY [facility]; Protocol Last Admin: 05/30/18 10:36 Dose: 100 mls/hr Levetiracetam (Keppra -) 500 mg PO BID [facility] Last Admin: 05/30/18 10:32 Dose: 500 mg Pantoprazole Sodium (Protonix Iv) 40 mg IVPUSH DAILY [facility] Last Admin: 05/30/18 10:32 Dose: 40 mg Tamsulosin HCl (Flomax -) 0.4 mg PO DAILY@0830 [facility] Last Admin: 05/30/18 08:24 Dose: 0.4 mg Tobramycin Sulfate (Tobrex Ophthalmic Solution -) 1 drop OU TID [facility] Last Admin: 05/30/18 06:15 Dose: 1 drop Valsartan (Diovan -) 320 mg PO DAILY [facility] Last Admin: 05/30/18 10:33 Dose: 320 mg Home Medications Medication Instructions Recorded Simvastatin 20 mg PO HS 06/23/16 Tamsulosin HCl [Flomax] 0.4 mg PO DAILY 05/23/18 Olmesartan Medoxomil 40 mg PO DAILY #30 tablet 05/25/18 levETIRAcetam [Keppra -] 500 mg PO BID #60 tablet 05/25/18 Bisacodyl [Laxative] 5 mg PO ASDIR 05/26/18 IMAGING: MRI: Midline shift is 8.8mm, no evidence of acute or subacute infarction. ASSESSMENT/PLAN: 83 year old with PMH of HLD, HTN, and basal cell carcinoma, who presents with generalized weakness, lethargy, decreased PO, since being discharged on s/p R parietal crani for mass biopsy/resection for necrotic brain mass, biopsy pending. Pt. is now POD 5. #Neurology -Acute Hemorrhagic/Necrotizing Encephalopathy s/p Brain mass excision and biopsy POD #5 MRI appreciated as noted above discharged on 05/25/18, POD 5, s/p R parietal crani for mass biopsy/resection, biopsy pending. Path report from biopsy showed Low-grade tumor (which is characteristically unlikely to cause hemorrhage) vs. vascular malformation. CT head: edematous w/ increased( 0.8cm --> 0.9cm) midline shift. CMP and UA unremarkable Neurosurgery consult(Dr. Ochoa) appreciated Increased decadron to 6mg Q6H for edema c/w Keppra 500mg BID. frequent neuro exam. cardiac monitoring #Infectious Disease -R/o-ed sepsis Pt. was tachycardic to 99 BPM w/ temperature of 100.3 on re-admission CXR: mildly worsened L atelectasis CT chest prelim read atelectisis and/or consolidation RLL w/ air bronchograms, small b/l pleural effusions CMP and UA unremarkable Bcx. and UCx. negative to date No leukocytosis Fever may be due to brain edema, however c/w Azithromycin Day-4, will D/c Azithromycin 05/30/18. D/C-ed Ceftriaxone ID consult (Dr. Mcmahon) appreciated #Cardiology -HTN maintain MAP >65 IVF monitor I/O cardiac monitoring EKG NSR Olmesartan -HLD simvastatin 20mg #F/E/N -D/c IVF, encourage PO intake. electrolytes: replete prn nutrition: Na restricted diet. #Ppx -DVT SCDs hold off on AC in case of brain bleed, monitor H/H -GI Protonix 40mg IVP Daily
[2018-05-30] MEDS: BISACODYL 5 MG TABLET.DR (FP) PO PRN (15:33)
--- NOTE | 2018-05-30 18:48 | PN ---
Teaching Attending Note Name of Resident: Vadim Villavicencio ATTENDING PHYSICIAN STATEMENT I saw and evaluated the patient. I reviewed the resident's note and discussed the case with the resident. I agree with the resident's findings and plan as documented. SUBJECTIVE: no fever or chills . No CISNEROS , no weakness, numbness or tingling OBJECTIVE: NAD CV : RRR Lungs: CTAB Abd: soft, obese , NT NEuro: EOMI , oval shaped R pupil, reactive to light , round L pupil with reaction to light . no facial droop, tongue at mid line strength 5/5 in upper and lower extremities proximally and distally . sensation to light touch nl. reflexes 2+ knee jerk and biceps . finger to nose normal ASSESSMENT AND PLAN: 83 y/o man with h/o HLP, HTN, BCC, who was admitted for R temporal mass resection . 1- R temporal mass: s/p resection . nl neuro exam . MRI with edema and mid line shift. this was d/w Dr. Calix cont steroids and keppra monitor neuro exam follow path 2- HTn. cont meds dispo : HLOC
[2018-05-30] MEDS: ATORVASTATIN CA 10 MG TABLET (FP) PO SCH (21:05)
[2018-05-31] MEDS: DEXAMETHASONE SOD PHOSPHATE 4 MG/1 ML VIAL IVPUSH SCH ×2 (03:04→08:43)
[2018-05-31] MEDS: TOBRAMYCIN 0.3% OPHTH SOLN 5 ML BOTTLE OU SCH ×3 (05:31→21:52)
[2018-05-31] MEDS: TAMSULOSIN HCL 0.4 MG CAP PO SCH (08:40)
[2018-05-31] MEDS ORDERED: DEXTROSE 5%-WATER - 50 ML IVPB ONE (09:40)
[2018-05-31] MEDS ORDERED: cefTRIAXone SODIUM 1 GM VIAL ONE (09:40)
[2018-05-31] MEDS: CEFTRIAXONE 1 GM in DEXTROSE 5%-WATER - 50 ML IVPB SCH (09:44)
[2018-05-31] MEDS: levETIRAcetam 500 MG TABLET (FP) PO SCH ×2 (09:44→21:52)
[2018-05-31] MEDS: PANTOPRAZOLE 40 MG TABLET (FP) PO SCH (09:44)
[2018-05-31] MEDS: VALSARTAN 160 MG TABLET (UD) PO SCH (09:44)
--- NOTE | 2018-05-31 10:28 | PN ---
Progress Note, Physician History of Present Illness: patient doing well remaining stable and afebrile - Current Medication List Current Medications: Active Medications Acetaminophen (Tylenol -) 650 mg PO Q4H PRN PRN Reason: PAIN LEVEL 6-10 Atorvastatin Calcium (Lipitor -) 10 mg PO HS [facility] Last Admin: 05/30/18 21:05 Dose: 10 mg Bisacodyl (Dulcolax -) 5 mg PO DAILY PRN PRN Reason: CONSTIPATION Last Admin: 05/30/18 15:33 Dose: 5 mg Dexamethasone Sodium Phosphate (Decadron Injection -) 6 mg IVPUSH Q6H-IV [facility] Last Admin: 05/31/18 08:43 Dose: 6 mg Azithromycin (Zithromax 500mg Ivpb (Pre-Docked)) 500 mg in 250 mls @ 250 mls/ hr IVPB DAILY [facility] Last Admin: 05/30/18 11:15 Dose: 250 mls/hr Ceftriaxone Sodium 1 gm/ (Dextrose) 50 mls @ 100 mls/hr IVPB DAILY [facility]; Protocol Last Admin: 05/31/18 09:44 Dose: 100 mls/hr Levetiracetam (Keppra -) 500 mg PO BID [facility] Last Admin: 05/31/18 09:44 Dose: 500 mg Pantoprazole Sodium (Protonix -) 40 mg PO DAILY [facility] Last Admin: 05/31/18 09:44 Dose: 40 mg Tamsulosin HCl (Flomax -) 0.4 mg PO DAILY@0830 [facility] Last Admin: 05/31/18 08:40 Dose: 0.4 mg Tobramycin Sulfate (Tobrex Ophthalmic Solution -) 1 drop OU TID [facility] Last Admin: 05/31/18 05:31 Dose: 1 drop Valsartan (Diovan -) 320 mg PO DAILY [facility] Last Admin: 05/31/18 09:44 Dose: 320 mg - Objective Vital Signs: Vital Signs Temperature 97.9 F 05/31/18 06:00 Pulse Rate 61 05/31/18 06:00 Respiratory Rate 18 05/31/18 06:00 Blood Pressure 122/67 05/31/18 06:00 O2 Sat by Pulse Oximetry (%) 94 L 05/30/18 21:00 Constitutional: Yes: No Distress, Calm Cardiovascular: Yes: Regular Rate and Rhythm Respiratory: Yes: Regular, CTA Bilaterally Gastrointestinal: Yes: Normal Bowel Sounds, Soft Musculoskeletal: Yes: WNL Extremities: Yes: WNL Wound/Incision: Yes: Dressing Dry and Intact Neurological: Yes: Alert, Oriented Psychiatric: Yes: Alert, Oriented Labs: CBC, BMP 05/30/18 07:00 05/30/18 07:00 INR, PTT INR 1.11 (0.83-1.09) H 05/26/18 14:38 Assessment/Plan Problem List - Problems (1) Altered mental status Code(s): R41.82 - ALTERED MENTAL STATUS, UNSPECIFIED (2) Confusion Code(s): R41.0 - DISORIENTATION, UNSPECIFIED (3) HLD (hyperlipidemia) Code(s): E78.5 - HYPERLIPIDEMIA, UNSPECIFIED Qualifiers: Hyperlipidemia type: unspecified Qualified Code(s): E78.5 - Hyperlipidemia , unspecified (4) HTN (hypertension) Code(s): I10 - ESSENTIAL (PRIMARY) HYPERTENSION Qualifiers: Hypertension type: essential hypertension Qualified Code(s): I10 - Essential (primary) hypertension (5) Intracranial mass Code(s): R90.0 - INTCRN SPACE-OCCUPYING LESION FOUND ON DX IMAGING OF CNSL Assessment/Plan 83 y.o. male with PMH of HTN, HLD, Basal cell CA, with necrotic brain mass s/p Rt parietal craniectomy/mass resection/biopsy on 05/24/18 presenting with weakness, decreased oral intake, lethargy and noted to have low grade fevers Fever - infectious vs inflammatory Possible PNA Brain mass s/p resection/biopsy - results pending Cerebral Edema with midline shift doing well plan can stop all abx if he has completed 5 days physio rest as per the team patient doing well
[2018-05-31] MEDS: AZITHROMYCIN IVPB 500 MG/250 ML BAG IVPB SCH (10:37)
[2018-05-31] MEDS: BISACODYL 5 MG TABLET.DR (FP) PO PRN (11:18)
--- NOTE | 2018-05-31 13:09 | PN ---
Teaching Attending Note Name of Resident: Nithin Mckeon ATTENDING PHYSICIAN STATEMENT I saw and evaluated the patient. I reviewed the resident's note and discussed the case with the resident. I agree with the resident's findings and plan as documented. SUBJECTIVE: no fever or chills. No weakness, numbness or tingling. no change in vision OBJECTIVE: NAD CV : RRR Lungs: CTAB Abd: soft, obese , NT NEuro: EOMI , oval shaped R pupil, reactive to light , round L pupil with reaction to light. no facial droop, tongue at mid line strength 5/5 in upper and lower extremities proximally and distally . sensation to light touch nl. reflexes 2+ knee jerk and biceps . finger to nose normal ASSESSMENT AND PLAN: 83 y/o man with h/o HLP, HTN, BCC, who was admitted for R temporal mass resection . 1- R temporal mass: s/p resection . nl neuro exam d/w Dr. Calix, switch to po decadron. and cont same dose until patient follow with him in a week to d/w path results and taper plan cont keppra 2- HTn. cont meds dispo :patient is ready fro dc to rehab. will follow with social media designer
--- NOTE | 2018-05-31 13:29 | DS ---
Physical Exam: SUBJECTIVE: Patient seen and examined OBJECTIVE: Vital Signs Period Temp Pulse Resp BP Sys/Pendleton Pulse Ox Last 24 Hr 97.8 F-98.7 F 60-90 18-18 118-125/67-70 94 PHYSICAL EXAM GENERAL: The patient is awake, alert, and fully oriented, in no acute distress. HEAD: Normal with no signs of trauma. EYES: PERRL, extraocular movements intact, sclera anicteric, conjunctiva clear. ENT: Ears normal, nares patent, oropharynx clear without exudates, moist mucous membranes. NECK: Trachea midline, full range of motion, supple. LUNGS: Breath sounds equal, clear to auscultation bilaterally, no wheezes, no crackles, no accessory muscle use. HEART: Regular rate and rhythm, S1, S2 without murmur, rub or gallop. ABDOMEN: Soft, nontender, nondistended, normoactive bowel sounds, no guarding, no rebound, no hepatosplenomegaly, no masses. EXTREMITIES: 2+ pulses, warm, well-perfused, no edema. NEUROLOGICAL: Cranial nerves II through XII grossly intact. Normal speech, gait not observed. PSYCH: Normal mood, normal affect. SKIN: Warm, dry, normal turgor, no rashes or lesions noted. LABS HOSPITAL COURSE: Date of Admission:05/26/18 Date of Discharge: 05/31/18 Discharge Summary Reason For Visit: CEREBRAL EDEMA,ALTERED MENTAL STATUS Current Active Problems Altered mental status (Acute) Condition: Improved - Instructions Diet, Activity, Other Instructions: You were admitted for leg weakness after having brain surgery. We started you on steroids to decrease brain swelling. Please continue to take the steroids, Dexamethasone, as prescribed until you see Dr. Ochoa. We have given you a 10 day supply of steroids. If for any reason you are unable to make your appointment within that time, CALL the surgeon. Please take Dexamethasone 6mg pills every 6 hours at the same time every day until your appointment with Dr. Ochoa. Please follow up with your Neurosurgeon, Dr. Ochoa within 1 week. Jin Ochoa MD [facility] [address] [place] [address] We have started you on a medication to prevent acid reflux and stomach ulcer formation. Please take Pantoprazole 40mg Daily for as long as you are taking steroid medications. Please follow up with your Primary Care Physician and Dr. Ochoa about management of this medication. Please follow up with your Primary Care Physician within 1-2 weeks. 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 Referrals: Jin Ochoa MD, [facility] [Staff Physician] - 1 Week Jayme Ibanez MD [Primary Care Provider] - 1 Week Disposition: [facility] - Home Medications Comprehensive Discharge Medication List: Ambulatory Orders Simvastatin 20 mg PO HS 06/23/16 Tamsulosin HCl [Flomax] 0.4 mg PO DAILY 05/23/18 Olmesartan Medoxomil 40 mg PO DAILY #30 tablet 05/25/18 levETIRAcetam [Keppra -] 500 mg PO BID #60 tablet 05/25/18 Bisacodyl [Laxative] 5 mg PO ASDIR 05/26/18 Dexamethasone [Decadron -] 6 mg PO Q6HPO #40 tablet 05/31/18 Pantoprazole Sodium [Protonix -] 40 mg PO DAILY #30 tablet.ec 05/31/18 - Discharge Referral Referred to [facility] No
[2018-05-31] MEDS ORDERED: PT OWN MED DRAWER 7, Y5N ONE ×3 (14:28→20:53)
[2018-05-31] MEDS ORDERED: BISACODYL 10 MG SUPP.RECT RC PRN (15:28)
[2018-05-31] MEDS ORDERED: BISACODYL 10 MG SUPP.RECT RC ONE (15:28)
[2018-05-31] MEDS ORDERED: POLYETHYLENE GLYCOL 3350 119 GM BTL PO ONE (15:47)
--- NOTE | 2018-05-31 15:49 | PN ---
Physical Exam: SUBJECTIVE: Patient seen and examined. Pt. has not had BM. Pt. endorses passing lots of gas. Pt. denies any other complaints on 10 point. ROS at this time. OBJECTIVE: Vital Signs Period Temp Pulse Resp BP Sys/Pendleton Pulse Ox Last 24 Hr 97.4 F-98.7 F 60-92 16-18 107-125/55-70 94 GENERAL: The patient is awake, alert, and fully oriented, in no acute distress. HEAD: Normal with no signs of trauma, incision c/d/i EYES: PERRL, extraocular movements intact, sclera anicteric, conjunctiva clear. No ptosis. ENT: Ears normal, nares patent, oropharynx clear without exudates, moist mucous membranes. LUNGS: Breath sounds equal, clear to auscultation bilaterally, no wheezes, no crackles, no accessory muscle use. HEART: Regular rate and rhythm, S1, S2 without murmur, rub or gallop. ABDOMEN: Soft, nontender, nondistended, normoactive bowel sounds, no guarding, no rebound, no hepatosplenomegaly, no masses. EXTREMITIES: 2+ dorsal pedal pulses, no calf tenderness, warm, well-perfused, no edema. NEUROLOGICAL: Cranial nerves II through XII grossly intact. Normal speech, gait not observed. PSYCH: Normal mood, normal affect. SKIN: Warm, dry, normal turgor Active Medications Current Medications Acetaminophen (Tylenol -) 650 mg PO Q4H PRN PRN Reason: PAIN LEVEL 6-10 Atorvastatin Calcium (Lipitor -) 10 mg PO HS [facility] Last Admin: 05/30/18 21:05 Dose: 10 mg Bisacodyl (Dulcolax -) 5 mg PO DAILY PRN PRN Reason: CONSTIPATION Last Admin: 05/31/18 11:18 Dose: 5 mg Bisacodyl (Dulcolax Suppository -) 10 mg RC PRN PRN PRN Reason: CONSTIPATION Dexamethasone (Decadron -) 6 mg PO Q6HPO [facility] Levetiracetam (Keppra -) 500 mg PO BID [facility] Last Admin: 05/31/18 09:44 Dose: 500 mg Pantoprazole Sodium (Protonix -) 40 mg PO DAILY [facility] Last Admin: 05/31/18 09:44 Dose: 40 mg Polyethylene Glycol (Miralax (For Daily Use) -) 17 gm PO DAILY [facility] Tamsulosin HCl (Flomax -) 0.4 mg PO DAILY@0830 [facility] Last Admin: 05/31/18 08:40 Dose: 0.4 mg Tobramycin Sulfate (Tobrex Ophthalmic Solution -) 1 drop OU TID [facility] Last Admin: 05/31/18 14:38 Dose: 1 drop Valsartan (Diovan -) 320 mg PO DAILY [facility] Last Admin: 05/31/18 09:44 Dose: 320 mg Home Medications Medication Instructions Recorded Simvastatin 20 mg PO HS 06/23/16 Tamsulosin HCl [Flomax] 0.4 mg PO DAILY 05/23/18 Olmesartan Medoxomil 40 mg PO DAILY #30 tablet 05/25/18 levETIRAcetam [Keppra -] 500 mg PO BID #60 tablet 05/25/18 Bisacodyl [Laxative] 5 mg PO ASDIR 05/26/18 Dexamethasone [Decadron -] 6 mg PO Q6HPO #40 tablet 05/31/18 Pantoprazole Sodium [Protonix -] 40 mg PO DAILY #30 tablet.ec 05/31/18 ASSESSMENT/PLAN: 83 year old with PMH of HLD, HTN, and basal cell carcinoma, who presents with generalized weakness, lethargy, decreased PO intake since being discharged on s/p R parietal craniotomy for mass biopsy/resection for necrotic brain mass, biopsy pending. Pt. is now POD 6. #Gastroenterology -Constipation passing gas but has not passed stool for ~week c/w dulcolax c/w dulcolax suppository s/p Fleet enema x 1 - to no effect c/w Miralax BID low threshold to increase bowel regimen as dispo pending bowel movement #Neurology -Acute Hemorrhagic/Necrotizing Encephalopathy s/p Brain mass excision and biopsy POD #6 -resolving MRI appreciated as noted above discharged on 05/25/18, POD 6, s/p R parietal crani for mass biopsy/resection, biopsy pending. Path report from biopsy showed Low-grade tumor (which is characteristically unlikely to cause hemorrhage) vs. vascular malformation. CT head: edematous w/ increased( 0.8cm --> 0.9cm) midline shift. CMP and UA unremarkable Increased decadron to 6mg Q6H for edema c/w Keppra 500mg BID. frequent neuro exam. cardiac monitoring #Infectious Disease -R/o-ed sepsis -resolved Pt. was tachycardic to 99 BPM w/ temperature of 100.3 on re-admission CXR: mildly worsened L atelectasis CT chest prelim read atelectisis and/or consolidation RLL w/ air bronchograms, small b/l pleural effusions CMP and UA unremarkable Bcx. and UCx. negative to date No leukocytosis D/c- Azithromycin D/C-ed Ceftriaxone #Cardiology -HTN-stable maintain MAP >65 IVF monitor I/O cardiac monitoring EKG NSR Olmesartan -HLD -stable simvastatin 20mg #F/E/N -D/c IVF, encourage PO intake. electrolytes: replete prn nutrition: Na restricted diet. #Ppx -DVT SCDs hold off on AC in case of brain bleed, monitor H/H -GI Protonix 40mg IVP Daily Visit type - Emergency Visit Emergency Visit: Yes ED Registration Date: 05/26/18 Care time: The patient presented to the Emergency Department on the above date and was hospitalized for further evaluation of their emergent condition. - New Patient This patient is new to me today: No - Critical Care Critical Care patient: No - Discharge Referral Referred to [facility] Med P.C.: No
[2018-05-31] MEDS ORDERED: LACTULOSE 20 GM/30 ML UDC (FOR ORAL USE ONLY) PO ONE (16:37)
[2018-05-31] MEDS: DEXAMETHASONE 4 MG TABLET (FP) PO SCH ×2 (18:00→23:23)
[2018-05-31] MEDS: ATORVASTATIN CA 10 MG TABLET (FP) PO SCH (21:52)
[2018-05-31] MEDS: POLYETHYLENE GLYCOL 3350 119 GM BTL PO SCH (23:23)
[2018-06-01] MEDS: DEXAMETHASONE 4 MG TABLET (FP) PO SCH ×2 (05:55→12:19)
[2018-06-01] MEDS: TOBRAMYCIN 0.3% OPHTH SOLN 5 ML BOTTLE OU SCH (05:55)
[2018-06-01] MEDS ORDERED: POLYETHYLENE GLYCOL 3350 119 GM BTL PO SCH (06:00)
[2018-06-01] MEDS: TAMSULOSIN HCL 0.4 MG CAP PO SCH (08:07)
[2018-06-01] MEDS: VALSARTAN 160 MG TABLET (UD) PO SCH (09:37)
[2018-06-01] MEDS: POLYETHYLENE GLYCOL 3350 119 GM BTL PO SCH (09:38)
[2018-06-01] MEDS: PANTOPRAZOLE 40 MG TABLET (FP) PO SCH (09:38)
[2018-06-01] MEDS: levETIRAcetam 500 MG TABLET (FP) PO SCH (09:38)
--- NOTE | 2018-06-01 12:32 | PN ---
Progress Note, Physician History of Present Illness: feeling much better no complaints out of bed in chair daughter in room - Current Medication List Current Medications: Active Medications Acetaminophen (Tylenol -) 650 mg PO Q4H PRN PRN Reason: PAIN LEVEL 6-10 Atorvastatin Calcium (Lipitor -) 10 mg PO HS [facility] Last Admin: 05/31/18 21:52 Dose: 10 mg Bisacodyl (Dulcolax -) 5 mg PO DAILY PRN PRN Reason: CONSTIPATION Last Admin: 05/31/18 11:18 Dose: 5 mg Bisacodyl (Dulcolax Suppository -) 10 mg RC PRN PRN PRN Reason: CONSTIPATION Dexamethasone (Decadron -) 6 mg PO Q6HPO [facility] Last Admin: 06/01/18 12:19 Dose: 6 mg Levetiracetam (Keppra -) 500 mg PO BID [facility] Last Admin: 06/01/18 09:38 Dose: 500 mg Pantoprazole Sodium (Protonix -) 40 mg PO DAILY [facility] Last Admin: 06/01/18 09:38 Dose: 40 mg Polyethylene Glycol (Miralax (For Daily Use) -) 17 gm PO BID [facility] Last Admin: 06/01/18 09:38 Dose: 17 gm Tamsulosin HCl (Flomax -) 0.4 mg PO DAILY@0830 [facility] Last Admin: 06/01/18 08:07 Dose: 0.4 mg Tobramycin Sulfate (Tobrex Ophthalmic Solution -) 1 drop OU TID [facility] Last Admin: 06/01/18 05:55 Dose: 1 drop Valsartan (Diovan -) 320 mg PO DAILY [facility] Last Admin: 06/01/18 09:37 Dose: 320 mg - Objective Vital Signs: Vital Signs Temperature 98.4 F 06/01/18 06:00 Pulse Rate 65 06/01/18 06:00 Respiratory Rate 18 06/01/18 06:00 Blood Pressure 142/73 06/01/18 06:00 O2 Sat by Pulse Oximetry (%) 97 05/31/18 21:00 Constitutional: Yes: No Distress, Calm Cardiovascular: Yes: Regular Rate and Rhythm Respiratory: Yes: Regular, CTA Bilaterally Gastrointestinal: Yes: Normal Bowel Sounds, Soft Musculoskeletal: Yes: WNL Extremities: Yes: WNL Wound/Incision: Yes: Dressing Dry and Intact Neurological: Yes: Alert, Oriented Psychiatric: Yes: Alert, Oriented Labs: CBC, BMP 05/30/18 07:00 05/30/18 07:00 INR, PTT INR 1.11 (0.83-1.09) H 05/26/18 14:38 Assessment/Plan Problem List - Problems (1) Altered mental status Code(s): R41.82 - ALTERED MENTAL STATUS, UNSPECIFIED (2) Confusion Code(s): R41.0 - DISORIENTATION, UNSPECIFIED (3) HLD (hyperlipidemia) Code(s): E78.5 - HYPERLIPIDEMIA, UNSPECIFIED Qualifiers: Hyperlipidemia type: unspecified Qualified Code(s): E78.5 - Hyperlipidemia , unspecified (4) HTN (hypertension) Code(s): I10 - ESSENTIAL (PRIMARY) HYPERTENSION Qualifiers: Hypertension type: essential hypertension Qualified Code(s): I10 - Essential (primary) hypertension (5) Intracranial mass Code(s): R90.0 - INTCRN SPACE-OCCUPYING LESION FOUND ON DX IMAGING OF CNSL Assessment/Plan 83 y.o. male with PMH of HTN, HLD, Basal cell CA, with necrotic brain mass s/p Rt parietal craniectomy/mass resection/biopsy on 05/24/18 presenting with weakness, decreased oral intake, lethargy and noted to have low grade fevers Fever - infectious vs inflammatory Possible PNA Brain mass s/p resection/biopsy - results pending Cerebral Edema with midline shift doing well plan can stop all abx physio rest as per the team patient doing well
--- NOTE | 2018-06-01 12:43 | PN ---
Teaching Attending Note Name of Resident: Nithin Mckeon ATTENDING PHYSICIAN STATEMENT I saw and evaluated the patient. I reviewed the resident's note and discussed the case with the resident. I agree with the resident's findings and plan as documented. SUBJECTIVE: no pain, no weakness OBJECTIVE: NAD CV : RRR Lungs: CTAB Abd: soft, obese , NT NEuro: EOMI, oval shaped R pupil, reactive to light , round L pupil with reaction to light. no facial droop, tongue at mid line strength 5/5 in upper and lower extremities proximally and distally . sensation to light touch nl. reflexes 2+ knee jerk and biceps . ASSESSMENT AND PLAN: 83 y/o man with h/o HLP, HTN, BCC, who was admitted for R temporal mass resection . 1- R temporal mass: s/p resection . cont to have nl neuro exam cont keppra after dc cont po decadrone at current dose. to be tapered by dr. Calix. pt and daughter were made aware of the danger of abruptly stopping such medication 2- HTN. cont meds dispo :dc to rehab today
[2018-06-01 13:23] VITALS: BP 140/76; PULSE 63; TEMP 97.5
--- NOTE | 2018-06-01 13:27 | DS ---
Physical Exam: SUBJECTIVE: Patient seen and examined OBJECTIVE: Vital Signs Period Temp Pulse Resp BP Sys/Pendleton Pulse Ox Last 24 Hr 97.5 F-98.4 F 63-82 16-18 100-142/55-78 97 PHYSICAL EXAM GENERAL: The patient is awake, alert, and fully oriented, in no acute distress. HEAD: Normal with no signs of trauma. EYES: PERRL, extraocular movements intact, sclera anicteric, conjunctiva clear. ENT: Ears normal, nares patent, oropharynx clear without exudates, moist mucous membranes. NECK: Trachea midline, full range of motion, supple. LUNGS: Breath sounds equal, clear to auscultation bilaterally, no wheezes, no crackles, no accessory muscle use. HEART: Regular rate and rhythm, S1, S2 without murmur, rub or gallop. ABDOMEN: Soft, nontender, nondistended, normoactive bowel sounds, no guarding, no rebound, no hepatosplenomegaly, no masses. EXTREMITIES: 2+ pulses, warm, well-perfused, no edema. NEUROLOGICAL: Cranial nerves II through XII grossly intact. Normal speech, gait not observed. PSYCH: Normal mood, normal affect. SKIN: Warm, dry, normal turgor, no rashes or lesions noted. LABS HOSPITAL COURSE: Date of Admission:05/26/18 Date of Discharge: 06/01/18 Discharge Summary Reason For Visit: CEREBRAL EDEMA,ALTERED MENTAL STATUS Current Active Problems Altered mental status (Acute) Condition: Improved - Instructions Diet, Activity, Other Instructions: You were admitted for leg weakness after having brain surgery. We started you on steroids to decrease brain swelling. Please continue to take the steroids, Dexamethasone, as prescribed until you see Dr. Ochoa. We have given you a 10 day supply of steroids. If for any reason you are unable to make your appointment within that time, CALL the surgeon. Please take Dexamethasone 6mg pills every 6 hours at the same time every day until your appointment with Dr. Ochoa. Please follow up with your Neurosurgeon, Dr. Ochoa within 1 week. Jin Ochoa MD [facility] [address] [place] [address] We have started you on a medication to prevent acid reflux and stomach ulcer formation. Please take Pantoprazole 40mg Daily for as long as you are taking steroid medications. Please follow up with your Primary Care Physician and Dr. Ochoa about management of this medication. Please follow up with your Primary Care Physician within 1-2 weeks. 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 Please follow up with a 4th grade teacher in 1-2 weeks Please return to the ED if you are experiencing sudden changes in vision, dizziness, loss of consciousness, inability to pass urine or stool, increased leg weakness, numbness or tingling, or if you cannot get ahold of a primary care physician. Referrals: Jin Ochoa MD, [facility] [Staff Physician] - 1 Week Jayme Ibanez MD [Primary Care Provider] - 1 Week Disposition: SENIOR CARE FACILITY - Home Medications Comprehensive Discharge Medication List: Ambulatory Orders Simvastatin 20 mg PO HS 06/23/16 Tamsulosin HCl [Flomax] 0.4 mg PO DAILY 05/23/18 Olmesartan Medoxomil 40 mg PO DAILY #30 tablet 05/25/18 levETIRAcetam [Keppra -] 500 mg PO BID #60 tablet 05/25/18 Bisacodyl [Laxative] 5 mg PO ASDIR 05/26/18 Dexamethasone [Decadron -] 6 mg PO Q6HPO #40 tablet 05/31/18 Pantoprazole Sodium [Protonix -] 40 mg PO DAILY #30 tablet.ec 05/31/18 - Discharge Referral Referred to [facility] No
== END 2018-06-01 13:42 | DRG 80 ==
LOC: JER 13:14 → JERBED 17:36 → JICU 22:11 → J5S 05-28 15:23
PROVIDERS: ADMIT Internal Medicine; ATTEND Internal Medicine
DX: G93.6 Cerebral edema (principal); G04.39 Other acute necrotizing hemorrhagic encephalopathy; J18.9 Pneumonia, unspecified organism; C71.9 Malignant neoplasm of brain, unspecified; J98.11 Atelectasis; J90 Pleural effusion, not elsewhere classified; R71.0 Precipitous drop in hematocrit; N17.9 Acute kidney failure, unspecified; G81.94 Hemiplegia, unspecified affecting left nondominant side; R50.9 Fever, unspecified; E78.5 Hyperlipidemia, unspecified; I10 Essential (primary) hypertension; N40.0 Benign prostatic hyperplasia without lower urinary tract symptoms; R41.82 Altered mental status, unspecified; R00.0 Tachycardia, unspecified; E66.9 Obesity, unspecified; Z68.32 Body mass index [BMI] 32.0-32.9, adult; Z98.890 Other specified postprocedural states
CPT/HCPCS: 36415; 70450-TC; 70553-TC; 71045-TC-FY; 71250-TC; 80048; 80053; 81003; 81015; 82803; 83605; 83735; 84100; 84484; 85025; 85027; 85610; 85730; 87040; 87086; 93005; 93010; 97116-GP; 97162-GP; 99285-25; J0131; J1100; J7030

== ENCOUNTER 2020-04-19 15:59 | Emergency (ER) | payer OTHER, BC ==
[2020-04-19 16:05] VITALS: BP 98/63; PULSE 82; BMI 25.8
--- NOTE | 2020-04-19 16:29 | PDOC ---
History of Present Illness - General Chief Complaint: Urinary Problem Stated Complaint: URINARY PROBLEM Time Seen by Provider: 04/19/20 16:11 - History of Present Illness Initial Comments: Gianfranco Hernandez is a 85 y/o male with PMH significant for HTN, HLD, dementia, prostate CA, basal cell carcinoma, GERD, presenting today with leaking from Mcgraw. He was at [facility] last month and admitted for pneumonia and sepsis. He had urinary retention and was discharged home on 03/26 with instructions to follow up with a urologist. They have not been able to follow up yet. Today, pt is brought in by daughter for concern for leaking Mcgraw. States that there was leakage around the urethra and in the Mcgraw tubing. No fever/chills. No abdominal pain or suprapubic fullness. Does not feel the need to void. No bleeding or purulent drainage from the penis. No penile or testicular pain. No nausea/vomiting. No shortness of breath. Past History - Medical History Allergies/Adverse Reactions: Allergies Allergy/AdvReac Type Severity Reaction Status Date / Time No Known Allergies Allergy Verified 02/28/20 13:11 Home Medications: Ambulatory Orders Simvastatin 20 mg PO HS 06/23/16 Tamsulosin HCl [Flomax] 0.4 mg PO DAILY 05/23/18 Olmesartan Medoxomil 40 mg PO DAILY #30 tablet 05/25/18 levETIRAcetam [Keppra -] 500 mg PO BID #60 tablet 05/25/18 Bisacodyl [Laxative] 5 mg PO ASDIR 05/26/18 Dexamethasone [Decadron -] 6 mg PO Q6HPO #40 tablet 05/31/18 Pantoprazole Sodium [Protonix -] 40 mg PO DAILY #30 tablet.ec 05/31/18 Sulfamethoxazole/Trimethoprim [Bactrim Ds Tablet] 1 each PO BID 14 Days #28 tablet 04/19/20 Sulfamethoxazole/Trimethoprim [Bactrim Oral Suspension -] 20 ml PO BID 14 Days #560 ml 04/19/20 COPD: No CHF: No HTN: Yes Hypercholesterolemia: Yes - Immunization History Immunization Up to Date: Yes - Psycho-Social/Smoking History Smoking History: Unknown if ever smoked Have you smoked in the past 12 months: No - Substance Abuse Hx (Audit-C & DAST Scrn) How often the patient has a drink containing alcohol: Never Score: In Men: 4 or > Positive; In Women: 3 or > Positive: 0 Screen Result (Pos requires Nsg. Audit-10AR): Negative In the last yr the pt used illegal drug/Rx for NonMed reason: No Score: Yes response is considered Positive: 0 Screen Result (Positive result requires Nsg. DAST-10): Negative Review of Systems - Review of Systems Comments:: GENERAL/CONSTITUTIONAL: No fever or chills. No weakness._ HEAD, EYES, EARS, NOSE AND THROAT: No change in vision. No change in hearing. No sore throat._ CARDIOVASCULAR: No chest pain or shortness of breath_ RESPIRATORY: Denies cough, hemoptysis_ GASTROINTESTINAL: No nausea, vomiting, diarrhea or constipation._ GENITOURINARY: No dysuria, frequency, or change in urination. +leakage from Mcgraw MUSCULOSKELETAL: No joint or muscle swelling or pain. No neck or back pain._ SKIN: No rash_ NEUROLOGIC: No headache, vertigo, loss of consciousness, or change in strength/sensation._ ENDOCRINE: No increased thirst. No abnormal weight change_ HEMATOLOGIC/LYMPHATIC: No anemia, easy bleeding, or history of blood clots._ ALLERGIC/IMMUNOLOGIC: No hives or skin allergy._ *Physical Exam - Vital Signs Last Vital Signs Temp Pulse Resp BP Pulse Ox 82 16 98/63 97 04/19/20 16:01 04/19/20 16:01 04/19/20 16:01 04/19/20 16:01 - Physical Exam GENERAL: Awake, alert, and oriented to person/place/time, in no acute distress_ HEAD: No signs of trauma, normocephalic, atraumatic _ EYES: PERRLA, EOMI, sclera anicteric, conjunctiva clear_ ENT: Hearing grossly normal, nares patent, oropharynx clear without exudates. No uvular deviation. Moist mucosa_ NECK: Normal ROM, supple, no lymphadenopathy, JVD, or masses_ LUNGS: No distress, speaks in full sentences, clear to auscultation bilaterally _ HEART: Regular rate and rhythm, normal S1 and S2, no murmurs appreciated, peripheral pulses normal and equal bilaterally._ ABDOMEN: Soft, nontender, normoactive bowel sounds. No guarding, no rebound. No masses_ : Mcgraw in place. No blood in the Mcgraw. Mildly cloudy urine. Minimal urine from the urethra, no bloody or purulent discharge noted. No TTP over the penis, testicles, or perineum. BACK: No sacral decubitus ulcers. EXTREMITIES: Normal inspection, Normal range of motion, no edema. No clubbing or cyanosis_ NEUROLOGICAL: Cranial nerves II through XII grossly intact. Normal speech, normal gait, no focal sensorimotor deficits _ SKIN: Warm, Dry, normal turgor, no rashes or lesions noted_ ED Treatment Course - LABORATORY CBC & Chemistry Diagram: 04/19/20 17:42 04/19/20 17:42 Medical Decision Making - Medical Decision Making 04/19/20 16:29 85M with extensive PMH presenting today with leaking from Mcgraw that started today. Recently hospitalized at [facility] and Mcgraw placed for retention and elevated Cr. No signs of systemic infection. Non bloody urine. -cbc, cmp to check for infection and elevated Cr -ua, ucx -replace Mcgraw 04/19/20 18:42 Labs reviewed. Laboratory Last Values WBC 9.0 K/mm3 (4.0-10.0) 04/19/20 17:42 RBC 3.54 M/mm3 (4.00-5.60) L 04/19/20 17:42 Hgb 10.6 GM/dL (11.7-16.9) L 04/19/20 17:42 Hct 31.7 % (35.4-49) L D 04/19/20 17:42 MCV 89.6 fl (80-96) 04/19/20 17:42 MCH 30.0 pg (25.7-33.7) 04/19/20 17:42 MCHC 33.5 g/dl (32.0-35.9) 04/19/20 17:42 RDW 18.0 % (11.9-15.9) H 04/19/20 17:42 Plt Count 135 K/MM3 (134-434) D 04/19/20 17:42 MPV 8.0 fl (7.5-11.1) 04/19/20 17:42 Absolute Neuts (auto) 5.9 K/mm3 (1.5-8.0) 04/19/20 17:42 Neutrophils % 65.7 % (42.8-82.8) 04/19/20 17:42 Lymphocytes % 25.1 % (8-40) D 04/19/20 17:42 Monocytes % 6.9 % (3.8-10.2) 04/19/20 17:42 Eosinophils % 1.5 % (0-4.5) 04/19/20 17:42 Basophils % 0.8 % (0-2.0) 04/19/20 17:42 Nucleated RBC % 0 % (0-0) 04/19/20 17:42 Sodium 140 mmol/L (136-145) 04/19/20 17:42 Potassium 4.7 mmol/L (3.5-5.1) 04/19/20 17:42 Chloride 104 mmol/L (98-107) 04/19/20 17:42 Carbon Dioxide 31 mmol/L (21-32) 04/19/20 17:42 Anion Gap 5 MMOL/L (8-16) L 04/19/20 17:42 BUN 25.8 mg/dL (7-18) H 04/19/20 17:42 Creatinine 1.5 mg/dL (0.55-1.3) H 04/19/20 17:42 Est GFR (CKD-EPI)AfAm 48.50 04/19/20 17:42 Est GFR (CKD-EPI)NonAf 41.85 04/19/20 17:42 Random Glucose 101 mg/dL (74-106) 04/19/20 17:42 Calcium 7.7 mg/dL (8.5-10.1) L 04/19/20 17:42 Total Bilirubin 0.5 mg/dL (0.2-1) 04/19/20 17:42 AST 13 U/L (15-37) L 04/19/20 17:42 ALT 13 U/L (13-61) 04/19/20 17:42 Alkaline Phosphatase 101 U/L (45-117) 04/19/20 17:42 Total Protein 6.4 g/dl (6.4-8.2) 04/19/20 17:42 Albumin 2.4 g/dl (3.4-5.0) L 04/19/20 17:42 Urine Color Yellow 04/19/20 17:42 Urine Appearance Cloudy 04/19/20 17:42 Urine pH 6.5 (5.0-8.0) D 04/19/20 17:42 Ur Specific [place] 1.014 (1.010-1.035) 04/19/20 17:42 Urine Protein 1+ (NEGATIVE) H 04/19/20 17:42 Urine Glucose (UA) Negative (NEGATIVE) 04/19/20 17:42 Urine Ketones Negative (NEGATIVE) 04/19/20 17:42 Urine Blood 1+ (NEGATIVE) H 04/19/20 17:42 Urine Nitrite Negative (NEGATIVE) 04/19/20 17:42 Urine Bilirubin Negative (NEGATIVE) 04/19/20 17:42 Urine Urobilinogen 0.2 mg/dL (0.2-1.0) 04/19/20 17:42 Ur Leukocyte Esterase 2+ (NEGATIVE) H 04/19/20 17:42 Urine WBC (Auto) 623 /uL (0-25.8) 04/19/20 17:42 Urine RBC (Auto) 62 /uL (0-23.9) 04/19/20 17:42 Urine Casts (Auto) 4 /uL (0-3.1) 04/19/20 17:42 U Epithel Cells (Auto) 2 /uL (0-25.1) 04/19/20 17:42 Urine Bacteria (Auto) 2366 /uL (0-1359) 04/19/20 17:42 Will treat UTI with bactrim 20cc BID for 14 days as pt cannot take pills. Pt reassessed. Plan to d/c home with close PCP and urology f/u. All questions answered. Return precautions given. Pt verbalized understanding and agreement with plan. Discharge - Discharge Information Problems reviewed: Yes Clinical Impression/Diagnosis: Urinary retention UTI (urinary tract infection) Qualifiers: Urinary tract infection type: catheter-associated UTI Indwelling urinary catheter type: indwelling urethral catheter Encounter type: initial encounter Qualified Code(s): T83.511A - Infection and inflammatory reaction due to indwelling urethral catheter, initial encounter; N39.0 - Urinary tract infection, site not specified Condition: Stable Disposition: HOME - Admission No - Additional Discharge Information Prescriptions: Sulfamethoxazole/Trimethoprim [Bactrim Ds Tablet] 1 each PO BID 14 Days #28 tablet Sulfamethoxazole/Trimethoprim [Bactrim Oral Suspension -] 20 ml PO BID 14 Days #560 ml - Follow up/Referral Referrals: Jayme Ibanez MD [Primary Care Provider] - Johnathan Mar MD [Staff Physician] - Parvin Roth MD [Staff Physician] - - Patient Discharge Instructions Patient Printed Discharge Instructions: DI for Urinary Tract Infection (UTI) Additional Instructions: Please make a follow up appointment with your primary care doctor this week. Please make a follow up appointment with a urologist (referrals provided here). Please take Bactrim (antibiotic) 20 mL twice a day for 14 days. If you experience any new, worsening, or concerning symptoms, including worsening pain over the genitals, blood in the mcgraw, fever, chills, nausea, vomiting, or any other concerns, please return to the emergency department. - Post Discharge Activity
--- NOTE | 2020-04-19 17:14 | PDOC ---
Documentation entered by Yuki Dsouza SCRIBE, acting as scribe for Randal Leblanc MD. Randal Leblanc MD: This documentation has been prepared by the Meet barraagn Sydney, SCRIBE, under my direction and personally reviewed by me in its entirety. I confirm that the documentation accurately reflects all work, treatment, procedures, and medical decision making performed by me. Attending Attestation - Resident Resident Name: Pal Barrera - ED Attending Attestation I have performed the following: I have examined & evaluated the patient, The case was reviewed & discussed with the resident, I agree w/resident's findings & plan, Exceptions are as noted - HPI HPI: 04/19/20 17:09 Patient is a 85 year old male with a significant past medical history of HTN, HLD, dementia, prostate CA, basal cell carcinoma, GERD who presents to the ED with cloudy urine. As per patient, he was admitted at [facility] for pneumonia and sepsis and subsequently developed urinary retention. He was given a mcgraw catheter and DC'ed home on 03/26. Pt notes leakage of urine around mcgraw. Denies any pain. Denies headache, fever, chills, shortness of breath, chest pain, abdominal pain, nausea, vomiting, or diarrhea. Allergies: NKDA PCP: Dr. Omalley - Physicial Exam PE: 04/19/20 17:15 See resident exam - Medical Decision Making 04/19/20 17:15 85 M with cloudy urine. No other symptoms. No fever. - Labs, UA, UCx - Replace mcgraw 04/19/20 18:42 UA consistent with UTI Mcgraw replaced Cr 1.5 today, consistent with previous value. Pt is well appearing, with normal vitals. Clinically stable for DC at this time. I discussed the physical exam findings, ancillary test results and final diagnoses with the patient. I answered all of the patient's questions. The patient was satisfied with the care received and felt comfortable with the discharge plan and treatment plan. The patient agrees to follow up with the primary care physician within 24-72 hours. Discharge - Discharge Information Problems reviewed: Yes Clinical Impression/Diagnosis: Urinary retention, Encounter for Mcgraw catheter replacement UTI (urinary tract infection) Qualifiers: Urinary tract infection type: catheter-associated UTI Indwelling urinary catheter type: indwelling urethral catheter Encounter type: initial encounter Qualified Code(s): T83.511A - Infection and inflammatory reaction due to indwelling urethral catheter, initial encounter Condition: Stable Disposition: HOME - Additional Discharge Information Prescriptions: Sulfamethoxazole/Trimethoprim [Bactrim Ds Tablet] 1 each PO BID 14 Days #28 tablet Sulfamethoxazole/Trimethoprim [Bactrim Oral Suspension -] 20 ml PO BID 14 Days #560 ml - Follow up/Referral Referrals: Jayme Ibanez MD [Primary Care Provider] - Johnathan Mar MD [Staff Physician] - Parvin Roth MD [Staff Physician] - - Patient Discharge Instructions Patient Printed Discharge Instructions: DI for Urinary Tract Infection (UTI) Additional Instructions: Please make a follow up appointment with your primary care doctor this week. Please make a follow up appointment with a urologist (referrals provided here). Please take Bactrim (antibiotic) 20 mL twice a day for 14 days. If you experience any new, worsening, or concerning symptoms, including worsening pain over the genitals, blood in the mcgraw, fever, chills, nausea, vomiting, or any other concerns, please return to the emergency department. - Post Discharge Activity
[2020-04-19 18:13] LABS: BASO % 0.8 % (0-2.0); EOS % 1.5 % (0-4.5); HEMATOCRIT 31.7 % (35.4-49); HEMOGLOBIN 10.6 GM/dL (11.7-16.9); LYMPH % 25.1 % (8-40); MCHC 33.5 g/dl (32.0-35.9); MEAN CELL VOLUME 89.6 fl (80-96); MONO % 6.9 % (3.8-10.2); NEUT % 65.7 % (42.8-82.8); PLATELET COUNT 135 K/MM3 (134-434); RBC 3.54 M/mm3 (4.00-5.60)
[2020-04-19 18:17] LABS: EPI CELLS 2 /uL (0-25.1); HYALINE CASTS 4 /uL (0-3.1); PH,URINE 6.5 (5.0-8.0); URINE APPEARANCE CLOUDY; URINE BACTERIA 2366 /uL (0-1359); URINE BILIRUBIN NEGATIVE (NEGATIVE); URINE COLOR YELLOW; URINE GLUCOSE (UA) NEGATIVE (NEGATIVE); URINE KETONE NEGATIVE (NEGATIVE); URINE LEUK ESTERASE 2+ (NEGATIVE); URINE NITRITE NEGATIVE (NEGATIVE); URINE PROTEIN 1+ (NEGATIVE); URINE RBC 62 /uL (0-23.9); URINE UROBILINOGEN 0.2 mg/dL (0.2-1.0); URINE WBC 623 /uL (0-25.8)
[2020-04-19 18:41] LABS: ALBUMIN 2.4 g/dl (3.4-5.0); BILIRUBIN,TOTAL 0.5 mg/dL (0.2-1); BLOOD UREA NITROGEN 25.8 mg/dL (7-18); CALCIUM 7.7 mg/dL (8.5-10.1); CREATININE 1.5 mg/dL (0.55-1.3); POTASSIUM 4.7 mmol/L (3.5-5.1); TOT PROT 6.4 g/dl (6.4-8.2)
--- NOTE | 2020-04-22 13:44 | PDOC ---
Patient Follow-up (Call Back) - Post ED Follow - Up Condition at time of discharge: Stable Disposition at time of original discharge: HOME Reason for Call Back: Abnwl. Microbiology (Pt with [facility] on UC. DC'd on Bactrim which is resistant at this time. Called pt and spoke with her daughter. Switched pt to macrobid per sensitiviadria. States that he has an appointment to f/u w/ his urologist this week.)
== END 2020-04-19 19:14 | disposition home or self-care (01) ==
LOC: JER 15:59
DX: T83.511A Infection and inflammatory reaction due to indwelling urethral catheter, initial encounter (principal); N39.0 Urinary tract infection, site not specified
CPT/HCPCS: 36415; 80053; 81003; 85025; 87086; 87186; 99283-25